=== PATIENT | female | born 1955 | race Two or more races ===

== ENCOUNTER 2024-03-23 08:42 | Outpatient (RCR) | payer MEDICARE, MEDICAID, SELFPAY ==
[2024-03-01 16:15] LABS: Basophils # (Auto) 0.1 Thou/mm3 (0.0-0.2); Basophils % (Auto) 1 % (0-2.5); Eosinophils # (Auto) 0.1 Thou/mm3 (0.0-0.5); Eosinophils % (Auto) 2 % (0-10); Hematocrit 43.2 % (36.0-46.0); Hemoglobin 14.5 g/dL (12.0-16.0); Immature Granulocytes % (Auto) 0 % (0-0); Immature Granulocytes Auto 0.02 Thou/mm3 (0.00-0.00); Lymphocytes # (Auto) 1.3 Thou/mm3 (1.0-4.8); Lymphocytes % (Auto) 24 % (10-50); Mean Corpuscular HGB Conc 33.6 g/dl (31.0-37.0); Mean Corpuscular Hemoglobin 28.4 pg (25.0-35.0); Mean Corpuscular Volume 85 fL (80-100); Monocytes # (Auto) 0.5 Thou/mm3 (0.0-0.8); Monocytes % (Auto) 8 % (0-12); Neutrophils # (Auto) 3.7 Thou/mm3 (1.8-7.7); Neutrophils % (Auto) 65 % (37-80); Nucleated Red Blood Cell % 0 /100 WBC (0); Platelet Count 219 Thou/mm3 (140-440); RDW Standard Deviation 42.7 fL (36.4-46.3); Red Blood Count 5.11 Miln/mm3 (4.00-5.20); White Blood Count 5.7 Thou/mm3 (3.6-11.0)
[2024-03-01 16:39] LABS: Alanine Aminotransferase 20 U/L (10-49); Albumin, Serum 4.6 gm/dL (3.4-4.8); Albumin/Globulin Ratio 2.1 (1.2-2.2); Alkaline Phosphatase 61 U/L (46-116); Anion Gap 6 (7-16); Aspartate Amino Transferase 43 U/L (0-34); BUN/Creatinine Ratio 16 Ratio (12-20); Bilirubin,Total 0.4 mg/dL (0.3-1.2); Blood Urea Nitrogen 16 mg/dL (9-23); Calcium 9.6 mg/dL (8.3-10.6); Calcium (Corrected) 9.6 mg/dL (8.5-10.1); Carbon Dioxide 26.9 mMol/L (20.0-31.0); Chloride 105 mMol/L (98-107); Globulin 2.2 gm/dL (2.3-3.5); Glucose 113 mg/dL (74-106); Osmolality,Calculated 277 (275-295); Potassium 3.7 mMol/L (3.4-5.1); Sodium 138 mMol/L (136-145); Thyroid Stimulating Hormone 2.12 uIU/mL (0.55-4.78); Total Protein 6.8 gm/dL (5.7-8.2); eGFR > 60 See Note
[2024-03-21 16:17] LABS: Basophils % (Auto) 1 % (0-2.5); Eosinophils # (Auto) 0.1 Thou/mm3 (0.0-0.5); Eosinophils % (Auto) 1 % (0-10); Hematocrit 45.5 % (36.0-46.0); Hemoglobin 15.2 g/dL (12.0-16.0); Immature Granulocytes % (Auto) 0 % (0-0); Immature Granulocytes Auto 0.01 Thou/mm3 (0.00-0.00); Lymphocytes # (Auto) 1.2 Thou/mm3 (1.0-4.8); Lymphocytes % (Auto) 18 % (10-50); Mean Corpuscular HGB Conc 33.4 g/dl (31.0-37.0); Mean Corpuscular Hemoglobin 27.9 pg (25.0-35.0); Mean Corpuscular Volume 84 fL (80-100); Monocytes # (Auto) 0.5 Thou/mm3 (0.0-0.8); Monocytes % (Auto) 8 % (0-12); Neutrophils # (Auto) 4.7 Thou/mm3 (1.8-7.7); Neutrophils % (Auto) 73 % (37-80); Nucleated Red Blood Cell % 0 /100 WBC (0); Platelet Count 210 Thou/mm3 (140-440); RDW Standard Deviation 43.8 fL (36.4-46.3); Red Blood Count 5.44 Miln/mm3 (4.00-5.20); White Blood Count 6.5 Thou/mm3 (3.6-11.0)
[2024-03-21 16:37] LABS: Alanine Aminotransferase 38 U/L (10-49); Albumin, Serum 4.4 gm/dL (3.4-4.8); Alkaline Phosphatase 64 U/L (46-116); Anion Gap 9 (7-16); Aspartate Amino Transferase 37 U/L (0-34); BUN/Creatinine Ratio 11 Ratio (12-20); Bilirubin,Total 0.7 mg/dL (0.3-1.2); Blood Urea Nitrogen 11 mg/dL (9-23); Calcium 9.2 mg/dL (8.3-10.6); Calcium (Corrected) 9.2 mg/dL (8.5-10.1); Carbon Dioxide 26.5 mMol/L (20.0-31.0); Chloride 104 mMol/L (98-107); Globulin 2.2 gm/dL (2.3-3.5); Glucose 85 mg/dL (74-106); Osmolality,Calculated 275 (275-295); Potassium 3.7 mMol/L (3.4-5.1); Sodium 139 mMol/L (136-145); Thyroid Stimulating Hormone 3.99 uIU/mL (0.55-4.78); Total Protein 6.6 gm/dL (5.7-8.2); eGFR > 60 See Note
== END 2024-03-26 23:59 | disposition home or self-care (01) ==
LOC: SCTC 08:42
PROVIDERS: PCP Family Medicine; Referring Provider Family Medicine; Visit Provider Internal Medicine Hematology & Oncology
DX: Z51.11 Encounter for antineoplastic chemotherapy (principal); C64.2 Malignant neoplasm of left kidney, except renal pelvis; C50.412 Malignant neoplasm of upper-outer quadrant of left female breast; C78.00 Secondary malignant neoplasm of unspecified lung; Z17.0 Estrogen receptor positive status [ER+]; Z17.21 Progesterone receptor positive status; Z17.32 Human epidermal growth factor receptor 2 negative status; Z79.811 Long term (current) use of aromatase inhibitors
CPT/HCPCS: 36415; 36591; 80053; 84443; 85025; 96367; 96413; 99212; A4216; J1642; J2997; J9271; G0463

== ENCOUNTER 2024-04-13 13:06 | Outpatient (RCR) | payer MEDICARE, MEDICAID, SELFPAY ==
[2024-04-12 16:20] LABS: Basophils % (Auto) 1 % (0-2.5); Eosinophils # (Auto) 0.1 Thou/mm3 (0.0-0.5); Eosinophils % (Auto) 1 % (0-10); Hematocrit 46.7 % (36.0-46.0); Hemoglobin 15.9 g/dL (12.0-16.0); Immature Granulocytes % (Auto) 0 % (0-0); Immature Granulocytes Auto 0.02 Thou/mm3 (0.00-0.00); Lymphocytes # (Auto) 1.2 Thou/mm3 (1.0-4.8); Lymphocytes % (Auto) 22 % (10-50); Mean Corpuscular Hemoglobin 28.2 pg (25.0-35.0); Mean Corpuscular Volume 83 fL (80-100); Monocytes # (Auto) 0.5 Thou/mm3 (0.0-0.8); Monocytes % (Auto) 9 % (0-12); Neutrophils # (Auto) 3.8 Thou/mm3 (1.8-7.7); Neutrophils % (Auto) 68 % (37-80); Nucleated Red Blood Cell % 0 /100 WBC (0); Platelet Count 207 Thou/mm3 (140-440); RDW Standard Deviation 43.3 fL (36.4-46.3); Red Blood Count 5.63 Miln/mm3 (4.00-5.20); White Blood Count 5.5 Thou/mm3 (3.6-11.0)
[2024-04-12 16:46] LABS: Alanine Aminotransferase 55 U/L (10-49); Albumin, Serum 4.5 gm/dL (3.4-4.8); Albumin/Globulin Ratio 2.4 (1.2-2.2); Alkaline Phosphatase 54 U/L (46-116); Anion Gap 10 (7-16); Aspartate Amino Transferase 44 U/L (0-34); BUN/Creatinine Ratio 12 Ratio (12-20); Bilirubin,Total 0.6 mg/dL (0.3-1.2); Blood Urea Nitrogen 12 mg/dL (9-23); Calcium 9.2 mg/dL (8.3-10.6); Calcium (Corrected) 9.2 mg/dL (8.5-10.1); Carbon Dioxide 26.2 mMol/L (20.0-31.0); Chloride 98 mMol/L (98-107); Globulin 1.9 gm/dL (2.3-3.5); Glucose 93 mg/dL (74-106); Osmolality,Calculated 267 (275-295); Potassium 3.5 mMol/L (3.4-5.1); Sodium 134 mMol/L (136-145); Thyroid Stimulating Hormone 4.76 uIU/mL (0.55-4.78); Total Protein 6.4 gm/dL (5.7-8.2); eGFR > 60 See Note
== END 2024-04-26 23:59 | disposition home or self-care (01) ==
LOC: SCTC 13:06
PROVIDERS: PCP Physician Assistant; Referring Provider Physician Assistant; Visit Provider Internal Medicine Hematology & Oncology
DX: Z51.11 Encounter for antineoplastic chemotherapy (principal); C64.2 Malignant neoplasm of left kidney, except renal pelvis; C50.412 Malignant neoplasm of upper-outer quadrant of left female breast; C78.00 Secondary malignant neoplasm of unspecified lung; Z17.0 Estrogen receptor positive status [ER+]; Z17.21 Progesterone receptor positive status; Z17.32 Human epidermal growth factor receptor 2 negative status; Z79.811 Long term (current) use of aromatase inhibitors
CPT/HCPCS: 36591; 80053; 84443; 85025; 96413; A4216; J1642; J9271

== ENCOUNTER 2024-05-25 12:04 | Emergency (ER) | payer MEDICARE, MEDICAID, SELFPAY ==
--- NOTE | 2024-05-25 | XR_ITS ---
Examination: MRI abdomen with intravenous contrast. MRI abdomen without intravenous contrast. Date and time of exam: 1910 hours INDICATIONS: Diagnosis invasive lobular carcinoma left breast in situ, staging, left renal cell carcinoma diagnosis Technique: Multiple axial, sagittal and coronal sections of the abdomen obtained. Transverse images, TR 6020, TE 107. T1 weighted transverse images, TR 582, TE 9.5. T2-weighted sagittal images, TR 4000, TE 105. T2-weighted sagittal images, TR 4000, TE 5. Coronal images, TR 4210, TE 107. Axial and coronal images are obtained post 20 cc intravenous injection, gadolinium. Findings: Stable bilobed posterior right lobe liver lesion compared with July 21, 2019 The postcontrast images are degraded by patient motion Spleen is not enlarged No gallstones No pancreatic mass Absent left kidney No abdominal lymphadenopathy No ascites IMPRESSION: Recommend hepatic sonography follow-up to confirm 22 mm hemangioma right lobe of the liver
[2024-05-25 12:40] VITALS: BP 164/108; PULSE 78; RESP 20; TEMP 36.5; O2SAT 96
--- NOTE | 2024-05-25 12:46 | PD.EDADULT ---
ED General RME/HPI General Chief complaint: General Adult/Misc Complain Stated complaint: elevated liver enzymes, sent by Oncologist Time Seen by Provider: 05/25/24 12:36 Arrival date/time: 05/25/24 12:04 RME / HPI RME / HPI narrative: 69-year-old female patient with significant history of hypertension, renal cancer with mets to the lung, currently on chemotherapy, who was sent to us by Dr. Frazier, oncologist, for elevated LFTs. Patient was sent to us also for stat MRI of the liver. Currently patient is not having any complaints. Related Data Home Medications ?Medication ?Instructions ?Recorded ?Confirmed calcium 600 mg (as carbonate)-vit 2 tab PO DAILY 05/16/19 02/10/24 D3 20 mcg (800 unit) chewable tablet (Caltrate plus D) ibandronate 150 mg tablet 150 mg PO QMONTH 05/16/19 02/10/24 lisinopril 20 mg tablet 20 mg PO QDAY 05/16/19 02/10/24 lovastatin 20 mg tablet 20 mg PO QPM 05/16/19 02/10/24 exemestane 25 mg tablet 25 mg PO DAILY 02/04/24 02/10/24 vitamin B complex-vitamin C-folic 1 tab PO QDAY 02/04/24 02/10/24 acid 0.8 mg tablet (Myra-Maurice) Allergies Allergy/AdvReac Type Severity Reaction Status Date / Time No Known Allergies Allergy Verified 07/04/20 12:59 Review of Systems Review of Systems Narrative Review of Systems: Review of system reviewed and within normal limits except mentioned in HPI ED Exam Narrative Physical exam: VITAL SIGNS: Reviewed. GENERAL APPEARANCE: Alert and interactive, follows commands, no acute distress, HEAD AND FACE: Non-traumatic. ENT: PERRL, pink conjunctivitis, eyelid no trauma, Mucous membrane moist. NECK: Supple, nontender, no nuchal rigidity. CHEST: No tenderness, no crepitus, no paradoxical movement, no retractions. LUNGS: Clear, well ventilated, symmetric, no rales, no wheezing, no ronchi, no stridor, good breath sounds bilaterally. HEART: Regular rate, regular rhythm, no murmur, no gallops. ABDOMEN: Soft, positive bowel sounds, nondistended, no guarding, nontender, no rebound, no masses, RECTAL: Deferred. GENITAL: Deferred. NEUROLOGICAL: Gross motor function intact sensory function intact, Appropriate for age. MUSCULOSKELETAL: low back nontender, full range of motion. EXTREMITIES: Nontender, full range of motion. SKIN: Color pink, dry, no rash, no lacerations, no abrasions, no contusions. LYMPHATICS: Deferred. Course Quality Measures none Orders Category Date Time Status MRI Screening NOW Care 05/25/24 12:44 Active MRI Screening NOW Care 05/25/24 12:45 Active MR abdomen wo/w con Stat Exams 05/25/24 Completed Vital Signs Vital signs: Vital Signs Temperature 97.7 F 05/25/24 12:40 Pulse Rate 78 05/25/24 12:40 Respiratory Rate 20 05/25/24 12:40 Blood Pressure 164/108 H 05/25/24 12:40 Pulse Oximetry (%) 96 05/25/24 12:40 Oxygen Delivery Method Room Air 05/25/24 12:40 MDM Patient data External records reviewed:: None Clinical information provided by:: none Social determinants that could affect healthcare access:: none Patient has the following chronic illnesses:: None How is presenting disease/condition affected by chronic disease/condition?: no chronic disease Evaluation data The following diagnostics were reviewed and interpreted by me:: radiology exam(s) Lab and/or radiology exams considered but not ordered:: None Interpretation Summary: MRI of the abdomen came back with possible liver hemangioma otherwise unremarkable. Medications Medications considered but not ordered:: None Medication administrations:: None Consultations Consultation(s) initiated? (list below): No Diagnosis Differential Diagnosis ED Complaint MDM: Abdominal pain, elevated LFTs, liver hemangioma Most likely diagnosis given after review of the tests above:: Elevated LFTs Admission Indicated Admission indicated?: not indicated Explain why admission is indicated or not indicated:: Stable Admission Request Was there a request for admission?: No Disposition Plan Disposition Plan: Discharge Discharge Attestation Discharge Attestation: The patient and all family members were given an opportunity to ask questions and understood the discharge instructions. Discharge instructions specifically effects, indications for sooner follow up or return to the emergency department, and the expected course of current diagnosis. Patient condition: Stable Medical Decision Making MDM Narrative MDM Narrative: 69-year-old female patient with significant history of hypertension, renal cancer with mets to the lung, currently on chemotherapy, who was sent to us by Dr. Blinder, oncologist, for elevated LFTs. Patient was sent to us also for stat MRI of the liver. Currently patient is not having any complaints. Patient appears nontoxic and hemodynamically stable. Patient discharged home and instructed to follow-up with primary care provider in 24 to 48 hours. Instructed to return to the emergency department immediately if worsening of symptoms Differential Diagnosis Differential Diagnosis: Abdominal pain, elevated LFTs, liver hemangioma Discharge Plan Plan Patient Disposition: HOME (Self Care) Disposition Comment: Stable Prescriptions/Referrals Prescriptions/Med Rec: No Action lisinopril 20 mg Tablet 20 mg PO QDAY lovastatin 20 mg Tablet 20 mg PO QPM ibandronate 150 mg Tablet 150 mg PO QMONTH Caltrate 600 plus D 600 mg (1,500 mg)-800 unit Tablet,Chewable 2 tab PO DAILY exemestane 25 mg Tablet 25 mg PO DAILY Myra-Maurice 0.8 mg Tablet 1 tab PO QDAY Referrals: Mateus Reis PA-C [Primary Care Provider] - In 1 week Problem List Clinical Impression: Elevated LFTs Patient/Caregiver Discharge Instructions Discharge Activity: activity as tolerated Education Materials: Tests for Liver Disease Additional Instructions: Thank you for the opportunity for serving you today. You are stable for discharged . You are advised to: Follow-up with your oncologist in 1 to 2 days Return to ED for worsening of symptoms Increase oral fluids Print Language: Kazakh Stand Alone Forms: Nandini Award Info., Patient Portal Info Letter PA/ODILON Supervising Physician TREY/ODILON Supervising Physician: MD Og
[2024-05-25 19:56] VITALS: BMI 28.5
[2024-05-25 20:01] VITALS: BP 173/99; PULSE 71; RESP 18; TEMP 36.5; O2SAT 100
[2024-05-25 21:47] VITALS: BP 173/99; PULSE 68; RESP 18; TEMP 36.5; O2SAT 98
== END 2024-05-25 21:47 | disposition home or self-care (01) ==
PROVIDERS: Emergency Provider Emergency Medicine; PCP Physician Assistant
DX: R74.8 Abnormal levels of other serum enzymes (principal)
CPT/HCPCS: 74183; 99285; A9579

== ENCOUNTER 2024-05-27 07:53 | Outpatient (RCR) | payer MEDICARE, MEDICAID, SELFPAY ==
[2024-05-03 15:09] LABS: Basophils # (Auto) 0.1 Thou/mm3 (0.0-0.2); Basophils % (Auto) 1 % (0-2.5); Eosinophils # (Auto) 0.1 Thou/mm3 (0.0-0.5); Eosinophils % (Auto) 1 % (0-10); Hematocrit 48.3 % (36.0-46.0); Hemoglobin 16.2 g/dL (12.0-16.0); Immature Granulocytes % (Auto) 0 % (0-0); Immature Granulocytes Auto 0.01 Thou/mm3 (0.00-0.00); Lymphocytes # (Auto) 1.1 Thou/mm3 (1.0-4.8); Lymphocytes % (Auto) 21 % (10-50); Mean Corpuscular HGB Conc 33.5 g/dl (31.0-37.0); Mean Corpuscular Hemoglobin 27.6 pg (25.0-35.0); Mean Corpuscular Volume 82 fL (80-100); Monocytes # (Auto) 0.5 Thou/mm3 (0.0-0.8); Monocytes % (Auto) 9 % (0-12); Neutrophils # (Auto) 3.7 Thou/mm3 (1.8-7.7); Neutrophils % (Auto) 68 % (37-80); Nucleated Red Blood Cell % 0 /100 WBC (0); Platelet Count 201 Thou/mm3 (140-440); RDW Standard Deviation 43.7 fL (36.4-46.3); Red Blood Count 5.87 Miln/mm3 (4.00-5.20); White Blood Count 5.5 Thou/mm3 (3.6-11.0)
[2024-05-03 15:27] LABS: Alanine Aminotransferase 41 U/L (10-49); Albumin, Serum 4.3 gm/dL (3.4-4.8); Alkaline Phosphatase 50 U/L (46-116); Anion Gap 8 (7-16); Aspartate Amino Transferase 44 U/L (0-34); BUN/Creatinine Ratio 11 Ratio (12-20); Bilirubin,Total 0.7 mg/dL (0.3-1.2); Blood Urea Nitrogen 11 mg/dL (9-23); Calcium 9.3 mg/dL (8.3-10.6); Calcium (Corrected) 9.3 mg/dL (8.5-10.1); Carbon Dioxide 25.7 mMol/L (20.0-31.0); Chloride 101 mMol/L (98-107); Globulin 2.1 gm/dL (2.3-3.5); Glucose 97 mg/dL (74-106); Osmolality,Calculated 269 (275-295); Potassium 3.7 mMol/L (3.4-5.1); Sodium 135 mMol/L (136-145); Thyroid Stimulating Hormone 4.85 uIU/mL (0.55-4.78); Total Protein 6.4 gm/dL (5.7-8.2); eGFR > 60 See Note
--- NOTE | 2024-05-23 14:12 | CTCFLWUP_ITS ---
Patient: LENARD WINTERS : 1955 Page 2 of 3 FOLLOW UP NOTE DATE OF SERVICE: 05/23/2024 NAME: LENARD WINTERS ACCOUNT: [id number] : 1955 AGE: 69 INTERVAL HISTORY: Patient is on treatment for her renal cancer. 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 pT2, PN X. 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 Status post modified radical mastectomy (). S/p 4 cycles of TC chemotherapy. Currently on exemestane in the adjuvant setting # ONCOLOGY HISTORY: DIAGNOSIS: Malignant neoplasm of upper-outer quadrant of left female breast [ICD10] C50.412; Malignant neoplasm of left kidney, except renal pelvis [ICD10] C64.2 DATE OF DIAGNOSIS: 02/04/2024 STAGE/TNM: M1 metastatic clear-cell renal cell cancer on axitinib and Keytruda Also history of stage III ER/NH positive HER2 negative invasive lobular left breast cancer s/p mastec tammie chemotherapy and on exemestane TREATMENT HISTORY: Care?Plan Start?Date Cycle Day Intent DOCEtaxel?75,?Cyclophosphamide?600?-?Adj 07/28/2019 1 21 Curative?(adjuvant) Axitinib?and?Pembrolizumab 03/02/2024 1 21 Palliative HISTORY OF PRESENT ILLNESS: Lenard Winters is a 69-year-old woman who have a history of breast cancer and renal cancer. Patient was initially diagnosed with the breast cancer as below ? 12/13/2018: Patient had bilateral screening mammograms which caused the suspicion for left-sided breas t cancer. 03/31/2019: Patient saw radiation oncologist Dr. Aaron Reyes here at the cancer center. 04/07/2019: Patient saw Dr. Camden Ely who is planning on doing surgery near future. 05/18/2019: Patient had a left breast lumpectomy and sentinel lymph node biopsy. 05/26/2019: MRI of the breast. Left breast showed findings consistent with postsurgical seroma in the left breast as well as in left axilla. Right breast MRI was reportedly negative. 06/10/2019: DEXA scan?There is osteopenia based on lumbar spine measurements. There is osteopenia based on hip measurements Lumbar mineralization is increased 4.9% compared with F [id number]. Hip mineralization is increased 3.2% compared with June 13, 2014 06/20/2019: Left breast modified radical mastectomy? 07/08/2019: PET CT scan?Postsurgical changes left breast No mediastinal, axillary adenopathy. No pulmonary nodules 7 cm left renal mass worrisome for renal cell carcinoma. Recommend MRI abdomen/ kidneys follow-up, pre and postcontrast. Non hypermetabolic 9 mm focal sclerosis left sacral wing Co nsider whole-body bone scan follow-up 07/28/2019? 09/29/2019: Patient had 4 cycles of TC chemotherapy in the adjuvant setting. 11/15/2019: Left nephrectomy. 12/07/2019?03/20/2020: Patient took anastrozole 1 mg p.o. daily in the adjuvant setting. Anastrozole discontinued due to body aches. 12/14/2019?02/08/2020: Patient received 5040 cGy radiation therapy to the left chest wall. 02/27/2020: CT scan of the abdomen and pelvis with and without contrast? 03/20/2020: Anastrozole discontinued due to body aches. Patient was started on Aromasin 25 mg p.o. d aily. 06/08/2020: Esophagogastroduodenoscopy with biopsy? 07/04/2020: Patient had colonoscopy done by Dr. Gore. 08/27/2020: CT scan of the abdomen/pelvis with and without contrast? 03/13/2021: Right breast mammogram: BI-RADS Category 1: Negative findings. 03/07/2022: Bone density test? At the last visit patient was noted to have lung nodules which were biopsied. 02/04/[address]-guided needle biopsy shows metastatic clear-cell renal cell cancer. OTHER MEDICAL HISTORY/CONDITIONS: FAMILY HISTORY: SOCIAL HISTORY: [employer]OUN[employer] HISTORY: MEDICATIONS: 1. Caltrate 600 - 600 mg Twice a Day 2. exemestane - 25 mg 1 tab Daily 3. ibandronate - 150 mg Monthly 4. Inlyta - 1 mg 1 tab Twice a Day 5. lisinopril - 20 mg 1 tab Daily 6. losartan - 50 mg 1 tab Daily 7. losartan-hydrochlorothiazide - 50-12.5 mg 1 tab Daily 8. lovastatin - 20 mg As directed 9. Renal-Maurice - 0.8 mg 1 tab Daily 10. Sancuso - 3.1 mg/24 hour 1 Patch Weekly Medications Last Reconciled by Nancy Canada MA on 05/23/2024 ALLERGIES: No Known Drug Allergies REVIEW OF SYSTEMS: A complete 14-point review of systems was performed and is negative except as noted in interval histo ry. PHYSICAL EXAMINATION: VITAL SIGNS: PAIN: 0 - No pain ECOG Performance Status: 1 - Symptomatic; ambulatory; restricted in strenuous activity Conjunctive is white neck is supple. No adenopathy in the neck axilla or in the inguinal region. Chest clear to auscultation. No wheezes or rails audible. CVS rhythm regular. Abdomen is soft. Extremities no clubbing or cyanosis noted. LABORATORY DATA: I have personally reviewed and interpreted each of the patient?s relevant lab tests, abnormal finding s are below: Date 05/03/24 ??WHITE?BLOOD?COUNT?(Thou/mm3) 5.5 ??RED?BLOOD?COUNT?(Miln/mm3) 5.87?H ??HEMOGLOBIN?(gm/dl) 16.2?H ??HEMATOCRIT?(%) 48.3?H ??PLATELET?COUNT?(Thou/mm3) 201 ??NEUTROPHILS?%,?AUTO?(%) 68 ??LYMPH?%,?AUTO?(%) 21 ??NEUTROPHILS,?AUTO?(Thou/mm3) 3.7 ASSESSMENT/PLAN: #1 metastatic renal cancer Diagnosed on biopsy from the lung Patient getting treatment through a port catheter Patient has been on Keytruda and axitinib Rapidly growing tumor Will get scan to see response to treatment NGS panel showed 8 mutation burden and microsatellite stable. VHL mutation and therapies with clinic al relevance is belzutifan and category 2A recommendation I will follow-up on the CT scan and brain M RI to see response to treatment MRI Brain MRI with and without contrast CT scan with and without contrast CBC CMP TSH T4 Started on levothyroxine 50 mcg RETURN TO CLINIC: 6 weeks I will see her back in the clinic in 6 weeks. BILLING AND COMPLIANCE: I reviewed external records from providers outside my specialty as summarized above. I spent a total of 50 minutes on this patient?s care on the day of their visit excluding time spent related to any bi lled procedures. This time includes time spent with the patient as well as time spent documenting in the medical record, reviewing patients records and tests, obtaining history, placing orders, communi cating with other healthcare professionals, counseling the patient, family or caregiver, and/or care coordination for the diagnoses above. Electronically Signed by: Baudilio Macias MD T: 2:10 PM CC: PCP: Mateus Reis Referring: Mateus Reis This document was completed utilizing speech recognition software. Grammatical errors, random word in sertions, pronoun errors, and incomplete sentences are an occasional consequence of this system due t o software limitations, ambient noise, and hardware issues. Any formal questions or concerns about th e content, text or information contained within the body of this dictation should be directly address ed to the provider for clarification.
[2024-05-24 15:44] LABS: Basophils % (Auto) 1 % (0-2.5); Eosinophils % (Auto) 1 % (0-10); Hematocrit 48.2 % (36.0-46.0); Hemoglobin 16.2 g/dL (12.0-16.0); Immature Granulocytes % (Auto) 0 % (0-0); Immature Granulocytes Auto 0.01 Thou/mm3 (0.00-0.00); Lymphocytes # (Auto) 0.9 Thou/mm3 (1.0-4.8); Lymphocytes % (Auto) 22 % (10-50); Mean Corpuscular HGB Conc 33.6 g/dl (31.0-37.0); Mean Corpuscular Hemoglobin 27.8 pg (25.0-35.0); Mean Corpuscular Volume 83 fL (80-100); Monocytes # (Auto) 0.5 Thou/mm3 (0.0-0.8); Monocytes % (Auto) 12 % (0-12); Neutrophils # (Auto) 2.6 Thou/mm3 (1.8-7.7); Neutrophils % (Auto) 65 % (37-80); Nucleated Red Blood Cell % 0 /100 WBC (0); Platelet Count 175 Thou/mm3 (140-440); RDW Standard Deviation 44.8 fL (36.4-46.3); Red Blood Count 5.82 Miln/mm3 (4.00-5.20); White Blood Count 3.9 Thou/mm3 (3.6-11.0)
[2024-05-24 16:08] LABS: Alanine Aminotransferase 544 U/L (10-49); Albumin, Serum 4.6 gm/dL (3.4-4.8); Albumin/Globulin Ratio 2.3 (1.2-2.2); Alkaline Phosphatase 51 U/L (46-116); Anion Gap 10 (7-16); Aspartate Amino Transferase 329 U/L (0-34); BUN/Creatinine Ratio 11 Ratio (12-20); Bilirubin,Total 1.1 mg/dL (0.3-1.2); Blood Urea Nitrogen 12 mg/dL (9-23); Calcium 9.5 mg/dL (8.3-10.6); Calcium (Corrected) 9.5 mg/dL (8.5-10.1); Chloride 97 mMol/L (98-107); Creatinine (Component) 1.1 mg/dL (0.6-1.3); Free T4 (Free Thyroxine) 1.52 ng/dL (0.89-1.76); Glucose 90 mg/dL (74-106); Osmolality,Calculated 267 (275-295); Potassium 3.5 mMol/L (3.4-5.1); Sodium 134 mMol/L (136-145); Thyroid Stimulating Hormone 8.74 uIU/mL (0.55-4.78); Total Protein 6.6 gm/dL (5.7-8.2); eGFR 54 See Note
[2024-05-25 08:58] LABS: Basophils % (Auto) 1 % (0-2.5); Eosinophils # (Auto) 0.1 Thou/mm3 (0.0-0.5); Eosinophils % (Auto) 1 % (0-10); Hematocrit 49.2 % (36.0-46.0); Hemoglobin 16.6 g/dL (12.0-16.0); Immature Granulocytes % (Auto) 1 % (0-0); Immature Granulocytes Auto 0.02 Thou/mm3 (0.00-0.00); Lymphocytes % (Auto) 25 % (10-50); Mean Corpuscular HGB Conc 33.7 g/dl (31.0-37.0); Mean Corpuscular Hemoglobin 27.8 pg (25.0-35.0); Mean Corpuscular Volume 82 fL (80-100); Monocytes # (Auto) 0.6 Thou/mm3 (0.0-0.8); Monocytes % (Auto) 14 % (0-12); Neutrophils # (Auto) 2.4 Thou/mm3 (1.8-7.7); Neutrophils % (Auto) 58 % (37-80); Nucleated Red Blood Cell % 0 /100 WBC (0); Platelet Count 158 Thou/mm3 (140-440); RDW Standard Deviation 44.7 fL (36.4-46.3); Red Blood Count 5.98 Miln/mm3 (4.00-5.20); White Blood Count 4.1 Thou/mm3 (3.6-11.0)
[2024-05-25 09:16] LABS: Alanine Aminotransferase 598 U/L (10-49); Albumin, Serum 4.5 gm/dL (3.4-4.8); Albumin/Globulin Ratio 2.3 (1.2-2.2); Alkaline Phosphatase 51 U/L (46-116); Anion Gap 9 (7-16); Aspartate Amino Transferase 350 U/L (0-34); BUN/Creatinine Ratio 11 Ratio (12-20); Bilirubin,Total 1.2 mg/dL (0.3-1.2); Blood Urea Nitrogen 11 mg/dL (9-23); Calcium 9.9 mg/dL (8.3-10.6); Calcium (Corrected) 9.9 mg/dL (8.5-10.1); Carbon Dioxide 25.9 mMol/L (20.0-31.0); Chloride 102 mMol/L (98-107); Glucose 86 mg/dL (74-106); Osmolality,Calculated 272 (275-295); Potassium 3.6 mMol/L (3.4-5.1); Sodium 137 mMol/L (136-145); Thyroid Stimulating Hormone 14.41 uIU/mL (0.55-4.78); Total Protein 6.5 gm/dL (5.7-8.2); eGFR > 60 See Note
[2024-05-26 12:00] LABS: Alanine Aminotransferase 537 U/L (10-49); Albumin, Serum 4.3 gm/dL (3.4-4.8); Alkaline Phosphatase 48 U/L (46-116); Anion Gap 11 (7-16); Aspartate Amino Transferase 272 U/L (0-34); BUN/Creatinine Ratio 13 Ratio (12-20); Bilirubin,Total 1.2 mg/dL (0.3-1.2); Blood Urea Nitrogen 12 mg/dL (9-23); Calcium 9.3 mg/dL (8.3-10.6); Calcium (Corrected) 9.3 mg/dL (8.5-10.1); Carbon Dioxide 25.3 mMol/L (20.0-31.0); Chloride 102 mMol/L (98-107); Creatinine (Component) 0.9 mg/dL (0.6-1.3); Globulin 2.2 gm/dL (2.3-3.5); Glucose 86 mg/dL (74-106); Osmolality,Calculated 274 (275-295); Potassium 3.6 mMol/L (3.4-5.1); Sodium 138 mMol/L (136-145); Total Protein 6.5 gm/dL (5.7-8.2); eGFR > 60 See Note
[2024-05-27 09:02] LABS: Alanine Aminotransferase 433 U/L (10-49); Albumin, Serum 4.1 gm/dL (3.4-4.8); Alkaline Phosphatase 48 U/L (46-116); Anion Gap 10 (7-16); Aspartate Amino Transferase 195 U/L (0-34); BUN/Creatinine Ratio 11 Ratio (12-20); Bilirubin,Total 1.3 mg/dL (0.3-1.2); Blood Urea Nitrogen 11 mg/dL (9-23); Calcium 9.1 mg/dL (8.3-10.6); Calcium (Corrected) 9.1 mg/dL (8.5-10.1); Carbon Dioxide 25.4 mMol/L (20.0-31.0); Chloride 102 mMol/L (98-107); Globulin 2.1 gm/dL (2.3-3.5); Glucose 101 mg/dL (74-106); Osmolality,Calculated 273 (275-295); Potassium 3.4 mMol/L (3.4-5.1); Sodium 137 mMol/L (136-145); Total Protein 6.2 gm/dL (5.7-8.2); eGFR > 60 See Note
[2024-05-30 06:36] LABS: T3,Total* 129 ng/dL (76-181)
[2024-05-31 08:57] LABS: Alanine Aminotransferase 345 U/L (10-49); Albumin/Globulin Ratio 1.9 (1.2-2.2); Alkaline Phosphatase 42 U/L (46-116); Anion Gap 9 (7-16); Aspartate Amino Transferase 193 U/L (0-34); BUN/Creatinine Ratio 14 Ratio (12-20); Bilirubin,Total 1.1 mg/dL (0.3-1.2); Blood Urea Nitrogen 11 mg/dL (9-23); Calcium 8.8 mg/dL (8.3-10.6); Calcium (Corrected) 8.8 mg/dL (8.5-10.1); Carbon Dioxide 25.5 mMol/L (20.0-31.0); Chloride 106 mMol/L (98-107); Creatinine (Component) 0.8 mg/dL (0.6-1.3); Globulin 2.1 gm/dL (2.3-3.5); Glucose 94 mg/dL (74-106); Osmolality,Calculated 278 (275-295); Potassium 3.5 mMol/L (3.4-5.1); Sodium 140 mMol/L (136-145); Total Protein 6.1 gm/dL (5.7-8.2); eGFR > 60 See Note
[2024-05-31 10:19] LABS: T4 (Thyroxine) 12.9 mcg/dL (4.5-10.9)
[2024-06-02 12:10] LABS: Alanine Aminotransferase 256 U/L (10-49); Albumin, Serum 4.2 gm/dL (3.4-4.8); Albumin/Globulin Ratio 1.8 (1.2-2.2); Alkaline Phosphatase 46 U/L (46-116); Anion Gap 9 (7-16); Aspartate Amino Transferase 105 U/L (0-34); BUN/Creatinine Ratio 15 Ratio (12-20); Bilirubin,Total 0.9 mg/dL (0.3-1.2); Blood Urea Nitrogen 15 mg/dL (9-23); Calcium 9.4 mg/dL (8.3-10.6); Calcium (Corrected) 9.4 mg/dL (8.5-10.1); Carbon Dioxide 27.7 mMol/L (20.0-31.0); Chloride 106 mMol/L (98-107); Globulin 2.3 gm/dL (2.3-3.5); Glucose 93 mg/dL (74-106); Osmolality,Calculated 285 (275-295); Potassium 3.3 mMol/L (3.4-5.1); Sodium 143 mMol/L (136-145); Total Protein 6.5 gm/dL (5.7-8.2); eGFR > 60 See Note
[2024-06-03 06:43] LABS: ACTH, Plasma* 40 pg/mL (6-50)
== END 2024-05-27 23:59 | disposition home or self-care (01) ==
LOC: SCTC 07:53
PROVIDERS: PCP Physician Assistant; Referring Provider Physician Assistant; Visit Provider Internal Medicine Hematology & Oncology
DX: Z51.11 Encounter for antineoplastic chemotherapy (principal); C64.2 Malignant neoplasm of left kidney, except renal pelvis; C50.412 Malignant neoplasm of upper-outer quadrant of left female breast; C78.00 Secondary malignant neoplasm of unspecified lung; Z17.0 Estrogen receptor positive status [ER+]; Z17.21 Progesterone receptor positive status; Z17.32 Human epidermal growth factor receptor 2 negative status; Z90.12 Acquired absence of left breast and nipple; Z79.811 Long term (current) use of aromatase inhibitors; Z90.5 Acquired absence of kidney
CPT/HCPCS: 36591; 80053; 84439; 84443; 84480; 85025; 96360; 96413; 99213; A4216; J1642; J7030; J7040; J9271; G0463

== ENCOUNTER → 2024-06-06 | Outpatient (CLI) | payer MEDICARE, MEDICAID, SELFPAY ==
--- NOTE | 2024-06-06 14:00 | XR_ITS ---
Examination: CT chest with intravenous contrast CT abdomen with intravenous contrast CT pelvis with intravenous contrast CT chest without intravenous contrast CT abdomen without intravenous contrast CT pelvis without intravenous contrast 2-D coronal and sagittal reconstructions Time of exam: June 06, 2024 1443 hours Comparison 01/25/2024 INDICATIONS: Diagnosis malignant neoplasm upper outer quadrant left female breast, undergoing chemotherapy post mastectomy post nephrectomy restaging CTDI: vol (mGy) : 17.5 DLP: (mGycm): 1066 Technique: Multiple axial images of the chest, abdomen and pelvis with intravenous contrast, 3.0 mm slice thickness. Images obtained pre and post intravenous injection Isovue 40 cc Isovue-300 2-D sagittal and coronal reconstructions. Low dose protocols were performed. One or more of the following dose reduction techniques were used; automated exposure control, adjustment of the mA and/or KV according to patient size, use of iterative reconstruction technique. Findings: Left high periaortic mediastinal mass 4.5 x 2.7 cm compared to 8.5 x 4.7 cm on 01/25/2024 Right tracheobronchial lymph node mass 19 mm compared to 36 mm compared with 01/25/2024 Left upper lobe pulmonary mass 16 mm compared to 32 mm compared with 01/25/2024 Additional pulmonary nodules are no longer identified No visualized liver or splenic lesions No gallstones No pancreatic mass Absent left kidney No right hydronephrosis No interval abdominal or pelvic lymphadenopathy Normal appendix No bowel obstruction Enlarged uterus with 2 masses contiguous with or within the uterus 7.1 cm, 4.2 cm Urinary bladder intact IMPRESSION: Treatment response with decrease in extent of mediastinal lymphadenopathy and decrease in size of pulmonary mass left upper lobe as above Large apparent uterine masses, recommend transvaginal transabdominal pelvic sonography follow-up
== END | disposition home or self-care (01) ==
PROVIDERS: Referring Provider Internal Medicine Hematology & Oncology; Visit Provider Internal Medicine Hematology & Oncology
DX: R59.0 Localized enlarged lymph nodes (principal); R91.8 Other nonspecific abnormal finding of lung field; R19.09 Other intra-abdominal and pelvic swelling, mass and lump; C78.02 Secondary malignant neoplasm of left lung; C64.2 Malignant neoplasm of left kidney, except renal pelvis
CPT/HCPCS: 71270; 74178; 80053; 84443; 85025; A4649; Q9967

== ENCOUNTER → 2024-06-09 | Outpatient (CLI) | payer MEDICARE, MEDICAID, SELFPAY ==
--- NOTE | 2024-06-09 | XR_ITS ---
EXAMINATION: PET/CT FUSION SKULL TO THIGH EXAM DATE AND TIME: June 09, 2024 1342 hours INDICATIONS: Diagnosis breast cancer restaging post treatment, CT chest June 06, 2024 high left periaortic mediastinal mass 4.5 x 2.7 cm right tracheobronchial lymph node mass 19 mm, left upper lobe pulmonary mass 16 mm, restaging CTDI:vol (mGy) 4.66 DLP: (mGycm) 368.15 PROCEDURE: 15.09 mCi FDG was administered intravenously To allow for distribution and uptake of radiotracer, the patient was allowed to rest quietly in a shielded room. Imaging was performed on an integrated 16-slice PET/CT scanner, with scanning from the skull base to the mid thigh. Serum blood glucose at the time of the injection was measured 133 mg/dL. CT scanning was performed without oral or intravenous contrast material. FINDINGS: Head and Neck: There is no jonathan hypermetabolism in the neck. The visualized portions of the brain are normal in appearance on CT. Chest: 17 mm hypermetabolic pulmonary nodule left apex image 46 Non hypermetabolic 21 mm pulmonary nodule left upper lobe image 53 Weakly hypermetabolic left upper lobe pulmonary mass contiguous with the aortic arch, 4.5 x 2.7 cm Bilateral weakly hypermetabolic hilar regions Abdomen and Pelvis: There is no jonathan hypermetabolism in retroperitoneal or pelvic chains. The spleen is normal in size and FDG avidity. 3 cm umbilical hernia defect containing bowel but no incarcerated bowel Musculoskeletal: Marrow uptake is within normal range. IMPRESSION: Hypermetabolic 17 mm pulmonary nodule left apex Non hypermetabolic 21 mm pulmonary nodule left upper lobe High left mediastinal hypermetabolic pulmonary mass 4.5 x 2.7 cm
== END | disposition home or self-care (01) ==
LOC: CDIM 12:05
PROVIDERS: Referring Provider Internal Medicine Hematology & Oncology; Visit Provider Internal Medicine Hematology & Oncology
DX: R91.8 Other nonspecific abnormal finding of lung field (principal); C64.2 Malignant neoplasm of left kidney, except renal pelvis; C78.02 Secondary malignant neoplasm of left lung; C50.412 Malignant neoplasm of upper-outer quadrant of left female breast
CPT/HCPCS: 78815; A9552

== ENCOUNTER 2024-06-15 12:30 | Inpatient (IN) | payer MEDICARE, MEDICAID, SELFPAY ==
[2024-06-15 13:08] VITALS: BP 131/82; PULSE 75; RESP 16; TEMP 36.9; O2SAT 98; BMI 29.0
--- NOTE | 2024-06-15 14:30 | PD.EDRECHK ---
ED Recheck Abnl Lab Rx-RME/HPI General Chief Complaint: Recheck/Abnormal Lab/Rx Stated Complaint: CTC SENT OVER FOR LIVER FAILURE; HX RENAL CNX Time Seen by Provider: 06/15/24 12:54 Arrival date/time: 06/15/24 12:30 RME / HPI RME / HPI narrative: DR. DURAND MAIN ED EVALUATION: 69 year old female with past medical history significant for renal cancer presents to the Emergency Department with complaint of abnormal labs, liver enzymes are elevated. Case was discussed with her oncologist, Dr. Macias who notew her liver enzymes have increased since starting immunotherapy 4 weeks ago where she was then started on an oral prednisone taper. Thursday was her last dose of prednisone (10 mg). Otherwise patient is asymptomatic. Today, they were doing a routine check and liver enzymes were elevated again and was sent for admission for IV steroids. Patient was started on Solu-Medrol 125 mg in the office and referred to the emergency department with recommendations of admission for IV Solu-Medrol and trending her transaminases. Related Data Home Medications ?Medication ?Instructions ?Recorded ?Confirmed calcium 600 mg (as carbonate)-vit 2 tab PO DAILY 05/16/19 02/10/24 D3 20 mcg (800 unit) chewable tablet (Caltrate plus D) ibandronate 150 mg tablet 150 mg PO QMONTH 05/16/19 02/10/24 lisinopril 20 mg tablet 20 mg PO QDAY 05/16/19 06/15/24 lovastatin 20 mg tablet 20 mg PO QPM 05/16/19 06/15/24 exemestane 25 mg tablet 25 mg PO DAILY 02/04/24 02/10/24 vitamin B complex-vitamin C-folic 1 tab PO QDAY 02/04/24 06/15/24 acid 0.8 mg tablet (Myra-Maurice) Allergies Allergy/AdvReac Type Severity Reaction Status Date / Time No Known Allergies Allergy Verified 06/15/24 12:32 Review of Systems Review of Systems Systems Reviewed: All systems reviewed, normal except as documented Narrative Review of Systems: GEN: No fever, no chills, no weight loss EYES: No discharge, no visual changes, no pain HEENT: No ear pain, no congestion, no sore throat PULM: No shortness of breath, no cough, no congestion CV: No chest pain, no dyspnea on exertion, no palpitations GI: No nausea, no vomiting, no diarrhea, no pain, no constipation : No frequency, no urgency and no dysuria MUSC/SKEL: No joint pain, no back pain SKIN: No rash PSYCH: No hallucinations, no depression HEME/LYMPH: No easy bleeding or bruising tendencies NEURO: No weakness, no headache Past Medical History Past Medical History NEUROLOGIC: Positive Migraine CARDIAC: Positive Cardiac Disorders, Hypercholesterolemia and Hypertension GASTROINTESTINAL: Negative Gastrointestinal Disorders or Hepatitis GENITOURINARY: Positive Genitourinary Disorders, Renal Disease (left nephrectomy) and Kidney Stones REPRODUCTIVE: Positive Breast Cancer (LEFT BREAST CA) and Previous Pregnancies (x5) MUSCULOSKELETAL: Positive Musculoskeletal Disorders, Arthritis and Osteoporosis ENT: Positive Cataracts ENDOCRINE: Negative Endocrine Disorders, Diabetes Mellitus Type 1, Diabetes Mellitus Type 2 or Hyperthyroidism HEMATOLOGIC: Positive Blood Disorders and Anemia (in past) OTHER HISTORY: Positive Blood Transfusions, Chemotherapy, Radiation Therapy, Cancer (LEFT KIDNEY), Breast Cancer (LEFT BREAST CA) and Lung Cancer (? pending lung biopsy results); Negative Hospitalization, Autoimmune Disease, Shingles, Falls, Blood Transfusion Reaction, Anesthesia Reactions, MRSA, Chicken Pox, Measles or Mumps Family History FAMILY HISTORY: Positive Family Cardiac Disorders; Negative Family Psychiatric Problems, Family Respiratory Disorders, Family Gastrointestinal Problems, Family Cancer or Family Anesthesia Reaction Surgical History SURGICAL: Positive Nephrectomy (LEFT), Mastectomy (LEFT W/LYMPH NODES) and Lumpectomy; Negative Cardiac Surgery, Pacemaker, Endocrine Surgery, Abdominal Surgery or Joint Replacement Social History SMOKING STATUS: Never smoker SUBSTANCE USE: does not use ALCOHOL: Never ED Exam Narrative Physical exam: GENERAL APPEARANCE: AxOx4, generally well-appearing, no acute distress. HEENT: NC, AT. MMM. EOMI, clear conjunctiva, sclera anicteric, oropharynx clear. NECK: Supple without lymphadenopathy. No stiffness or restricted ROM. HEART: Normal rate and regular rhythm, normal S1/S1, no m/r/g LUNGS: CTAB, moving air well. No crackles or wheezes are heard. ABDOMEN: Soft, nontender, nondistended with good bowel sounds heard. BACK: No midline C/T/L spine pain or deformity, No CVAT, no obvious deformity. EXTREMITIES: Without cyanosis, clubbing or edema. MUSCULOSKELETAL: FROM of all major joints, no chest tenderness NEUROLOGICAL: Grossly nonfocal. Alert and oriented, moving all 4 extremities. CN not formally tested but appear grossly intact. Observed to ambulate with normal gait. Skin: Warm and dry without any rash. Course Quality Measures none Orders Category Date Time Status Admit to Inpatient Status Routine Admission 06/15/24 14:56 Active Patient Condition Routine Admission 06/15/24 14:56 Ordered Activity as Tolerated Routine Care 06/15/24 14:57 Ordered Flu & Pneumonia Vaccine Screen ONCE Care 06/15/24 14:56 Active Notify provider NEEDED Care 06/15/24 14:56 Active Obtain weight daily Care 06/15/24 14:57 Active Diet Renal Diet 06/15/24 Dinner Active CBC AM DRAW Lab 06/16/24 05:00 Ordered CBC AM DRAW Lab 06/17/24 05:00 Ordered CBC AM DRAW Lab 06/18/24 05:00 Ordered Comprehensive Metabolic Panel AM DRAW Lab 06/16/24 05:00 Ordered Comprehensive Metabolic Panel AM DRAW Lab 06/17/24 05:00 Ordered Comprehensive Metabolic Panel AM DRAW Lab 06/18/24 05:00 Ordered Magnesium AM DRAW Lab 06/16/24 05:00 Ordered Partial Thromboplastin Time AM DRAW Lab 06/16/24 05:00 Ordered Phosphorous AM DRAW Lab 06/16/24 05:00 Ordered Prothrombin Time with INR AM DRAW Lab 06/16/24 05:00 Ordered Acetaminophen Tab [Tylenol Tab] Med 06/15/24 14:56 Active 650 mg PO Q6H PRN Heparin Inj Med 06/15/24 21:00 Active 5,000 unit SC Q12HR Levothyroxine Sodium [Synthroid] Med 06/16/24 06:00 Active 50 mcg PO ACBR Losartan [Cozaar] Med 06/16/24 09:00 Active 50 mg PO QDAY MethylPREDNISolone.* [SoluMEDROL Inj] Med 06/16/24 09:00 Active 125 mg IVP QDAY Ondansetron Inj [Zofran Inj] Med 06/15/24 14:56 Active 4 mg IV Q6H PRN Pantoprazole Inj [Protonix Inj] Med 06/15/24 15:00 Active 40 mg IVP QDAY Senna [Senokot] Med 06/15/24 14:56 Active 1 tab PO QDAY PRN Code Status Routine Oth 06/15/24 14:56 Ordered Vital Signs Vital signs: Vital Signs Temperature 98.5 F 06/15/24 13:08 Pulse Rate 75 06/15/24 13:08 Respiratory Rate 16 06/15/24 13:08 Blood Pressure 131/82 H 06/15/24 13:08 Pulse Oximetry (%) 98 06/15/24 13:08 Oxygen Delivery Method Room Air 06/15/24 13:08 Recheck / Abnormal Lab / Rx MDM Narrative MDM Narrative:: I, Maryann Dempsey am scribing for and in the presence of Dr. Durand. Patient data External records reviewed:: [facility] previous records (Reviewed last oncology note by Dr. Macias, dated today 06/15/24.) Clinical information provided by:: patient Social determinants that could affect healthcare access:: none Patient has the following chronic illnesses:: Renal cancer, cancer doctor Gilberto. How is presenting disease/condition affected by chronic disease/condition?: exacerbated by Evaluation data The following diagnostics were reviewed and interpreted by me:: lab results Lab and/or radiology exams considered but not ordered:: none Interpretation Summary: ALT 687 Medications / Prescriptions Medications or Prescriptions considered but not ordered:: none Medication administrations:: Medication Administration History Acetaminophen (Acetaminophen 325 Mg Tablet) 650 mg PO Q6H PRN PRN Reason: Pain 1-3 and/or Fever >100.1 Stop: 07/15/24 14:55 Last Admin: 06/16/24 07:15 Dose: 650 mg Documented By: ROBERT Heparin Sodium (Porcine) (Heparin Sod Inj 5000 Unit/Ml Vial) 5,000 unit SC Q12HR [facility] Stop: 06/29/24 20:59 Last Admin: 06/15/24 21:23 Dose: 5,000 unit Documented By: ROBERT Co-signed By: NITIN Levothyroxine Sodium (Levothyroxine Sodium 25 Mcg Tablet) 50 mcg PO ACBR ARNOLDO Stop: 07/16/24 05:59 Last Admin: 06/16/24 05:56 Dose: 50 mcg Documented By: ROBERT Losartan Potassium (Losartan Potassium 25 Mg Tablet) 50 mg PO QDAY [facility] Stop: 07/16/24 08:59 Methylprednisolone Sodium Succinate (Methylprednisolone Sod Succ 62.5 Mg/Ml 2ml Vial) 125 mg IVP QDAY [facility] Stop: 06/23/24 08:59 Ondansetron HCl (Ondansetron Inj 2 Mg/Ml Inj 2 Ml) 4 mg IV Q6H PRN; Protocol PRN Reason: NAUSEA OR VOMITING Stop: 07/15/24 14:55 Pantoprazole Sodium (Pantoprazole Inj 40 Mg Vial) 40 mg IVP QDAY ARNOLDO Stop: 07/15/24 14:59 Last Admin: 06/15/24 19:07 Dose: 40 mg Documented By: JUAN FRANCISCO Sennosides (Senna Tablet) 1 tab PO QDAY PRN; Protocol PRN Reason: constipation Stop: 07/15/24 14:55 Discontinued Medications Sodium Chloride (Ns) 500 mls @ 80 mls/hr IV .Q6H15M [facility] Stop: 06/15/24 21:31 Last Admin: 06/15/24 19:07 Dose: 80 mls/hr Documented By: JUAN FRANCISCO see above Consultations Consultation(s) initiated? (list below): Yes Consultation #1 (Physician, Specialty, Details): Discussed test HPI, PMHx, lab, radiology results and/or management with cancer doctor Dr. Macias. See HPI for details. Time: 14:25 Consultation #2 (Physician, Specialty, Details): Discussed test HPI, PMHx, lab, radiology results and/or management with hospitalist. Will admit for further evaluation and management. Accepts patient for admission. Time: 14:35 Diagnosis Recheck Differential Diagnosis: other (hepatitis, cirrhosis, renal cancer) Most likely diagnosis given after review of the tests above:: Hepatitis Admission Indicated Admission indicated?: indicated Admission Request Was there a request for admission?: Yes Admission Attestation Admission request attestation: Discussed case with [] from Hospitalist service regarding admission. Discussed patients ED course, exam findings, labs, and radiology results. The Hospitalist [agrees,declines] to accept the patient for admission. Disposition Plan Disposition Plan: Admit Discharge Plan Plan Patient Disposition: Admit Acute Care w/in Hospital Problem List Clinical Impression: Hepatitis
--- NOTE | 2024-06-15 15:01 | ESHP_ITS ---
<Statement entered by Clint Felipe MD - 06/15/24 16:36> I discussed with and supervised the customer marketing intern physician involved in the care of this patient. Patient assessment and plan was discussed with entire medicine team, including my attending. I agree with the assessment and plan as documented by customer marketing intern doctor. Patient care was discussed with my attending physician Dr. Sammie Felipe, PGY-2 Documentation for date of: 06/15/24 HPI History of Present Illness Chief complaint: Elevated LFTs History of present illness: 69-year-old female with past medical history of hypertension, hyperlipidemia, hypothyroidism, breast cancer in 2019 status post mastectomy of the left breast, metastasis to the left kidney status post nephrectomy and recurrence in the last year with masses found in the lungs presented to the ED after liver function tests were abnormal at the cancer clinic. Patient follows Dr. 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 Patient was started on immunotherapy recently; however, upon checking AST/ALT, medications were stopped as she had elevated liver enzymes. Patient was started on oral prednisone which was tapered off and the last dose was on 06/10/2024. Patient today (06/15) followed up with repeat labs which showed persistently elevated AST ALT; moreover, patient was given 125 mg IV methylprednisolone at Dr. Hurley's office and told to go to the ED for close monitoring. Recommendations are that the patient be admitted and be given IV Solu-Medrol, IV Protonix, IV fluids and AST/ALT/bilirubin trended. Patient currently has no general complaints and feels fine. Medical history: Hypertension, hyperlipidemia, hypothyroidism, cancer history as stated above Surgical history: As stated above mastectomy and nephrectomy Allergies: NKDA Medications: Levothyroxine 50 mcg, losartan/HCTZ 50?12.5 milligram, lovastatin 20 mg, ibandronate 150 mg, exemestane 25 mg, Myra-Maurice vitamins and Caltrate Family history: Noncontributory Social history: Patient denies alcohol, tobacco or illicit drug use. Patient currently lives with her and son. ROS: All 12 systems assessed and the patient denies unless otherwise stated in HPI In the ED, patient presented mildly hypertensive 131/82, normal heart rate, normal respiration and afebrile satting 98 on room air. Pertinent lab findings included AST 326, ALT 687, alkaline phosphatase 42 and total bilirubin 1.2. 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 Exam Vital Signs Temp Pulse Resp BP Pulse Ox O2 Del Method 98.5 F 75 16 131/82 H 98 Room Air 06/15/24 13:08 06/15/24 13:08 06/15/24 13:08 06/15/24 13:08 06/15/24 13:08 06/15/24 13:08 Narrative Exam Physical Exam: GENERAL: Awake, answering questions appropriately, appears stated age. In a wheelchair. HEENT: NC/AT. Moist mucosa. PERRLA/EOMI. CARDIO: Heart RRR, no obvious murmurs, no JVD. Chemo-Port site noted on right midclavicular second intercostal area PULM: No coughing or visible SOB. Lungs CTA B/L. GI: Abdomen soft, NT/ND, +BS. SKIN/MSK/EXT: No wounds/discoloration/rashes/edema. +Pedal pulses present B/L. NEURO: Oriented x3, no focal neurologic deficits noted Results: Labs 06/16/24 04:40 06/16/24 04:40 Quality Measures Quality Measures VTE prophylaxis Advance care planning discussed with:: patient and child Medications Home Medications and Allergies Home Medications ?Medication ?Instructions ?Recorded ?Confirmed ?Type calcium 600 mg (as carbonate)-vit 2 tab PO DAILY 05/1602/10/24 History D3 20 mcg (800 unit) chewable tablet (Caltrate plus D) ibandronate 150 mg tablet 150 mg PO QMONTH 05/16/19 History lisinopril 20 mg tablet 20 mg PO QDAY 05/16/1906/15 History lovastatin 20 mg tablet 20 mg PO QPM 05/16/19 History exemestane 25 mg tablet 25 mg PO DAILY 02/04/2401/25 History vitamin B complex-vitamin C-folic 1 tab PO QDAY 06/15/24 History acid 0.8 mg tablet (Myra-Muarice) Allergies Allergy/AdvReac Type Severity Reaction Status Date / Time No Known Allergies Allergy Verified 06/15/24 12:32 Visit Medications Acetaminophen (Acetaminophen 325 Mg Tablet) 650 mg PO Q6H PRN PRN Reason: Pain 1-3 and/or Fever >100.1 Stop: 07/15/24 14:55 Heparin Sodium (Porcine) (Heparin Sod Inj 5000 Unit/Ml Vial) 5,000 unit SC Q12HR ARNOLDO Stop: 06/29/24 20:59 Levothyroxine Sodium (Levothyroxine Sodium 25 Mcg Tablet) 50 mcg PO ACBR ARNOLDO Stop: 07/16/24 05:59 Losartan Potassium (Losartan Potassium 25 Mg Tablet) 50 mg PO QDAY ARNOLDO Stop: 07/16/24 08:59 Methylprednisolone Sodium Succinate (Methylprednisolone Sod Succ 62.5 Mg/Ml 2ml Vial) 125 mg IVP QDAY ARNOLDO Stop: 06/23/24 08:59 Ondansetron HCl (Ondansetron Inj 2 Mg/Ml Inj 2 Ml) 4 mg IV Q6H PRN; Protocol PRN Reason: NAUSEA OR VOMITING Stop: 07/15/24 14:55 Pantoprazole Sodium (Pantoprazole Inj 40 Mg Vial) 40 mg IVP QDAY ARNOLDO Stop: 07/15/24 14:59 Sennosides (Senna Tablet) 1 tab PO QDAY PRN; Protocol PRN Reason: constipation Stop: 07/15/24 14:55 Assessment & Plan Plan 69-year-old female with past medical history of hypertension, hyperlipidemia, hypothyroidism, breast cancer in 2019 status post mastectomy of the left breast, metastasis to the left kidney status post nephrectomy and recurrence in the last year with masses found in the lungs presented after liver function tests were abnormal at the cancer clinic will be admitted for IV steroid therapy secondary to 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 #Immune therapy associated hepatitis #Elevated liver enzymes Patient was recently started on immunotherapy secondary to metastatic cancer, with spread to lungs Patient immunotherapy was held and she was started on oral prednisone about 3 weeks ago; which was tapered and last dose was 06/10/2024 Patient had repeat liver function test with Dr. Hurley today (06/15) - which showed persistent elevation Patient is brought into the ED for IV steroid, IV Protonix and IV fluid treatment Currently patient's LFTs: AST 326, ALT 687, alk phos 42 and T bilirubin 1.2 Plan: IV Solu-Medrol 125 mg daily IV Protonix 40 mg daily IV fluid, 500 cc at 80 cc/h for 1 bag Monitor with morning labs If patient's LFTs continue to worsen with IV Solu-Medrol; will look into transferring patient to higher acuity care for hepatology consultation #History of metastatic cancer #Clear-cell renal cell carcinoma #Breast cancer status postmastectomy #Status post nephrectomy, left side As noted in HPI patient has significant history of metastatic cancer Initially on immunotherapy but was stopped secondary to immunotherapy associated hepatitis Patient follows Dr. Hurley Patient on exemestane 25 mg p.o. daily Patient also on ibandronate 150 mg daily Plan: Will hold ibandronate and exemestane at this time Monitor for any acute changes #Hypertension Patient on home losartan?hydrochlorothiazide 50-12.5 mg daily Currently normotensive Plan: Restart losartan 50 mg Will consider restarting hydrochlorothiazide if patient has hypertension #Hyperlipidemia Patient is on lovastatin 20 mg daily Plan: Will hold for now, restart on discharge Patient is also on Myra-Maurice and Caltrate vitamins We will hold for now, restart on discharge #Hypothyroidism Patient on home levothyroxine 50 mcg Plan: Restarted home medication Hospital Management: Lines: PIV Diet: Renal Bowel: Senna, as needed GI prophylaxis: Protonix IV DVT prophylaxis: Heparin subcu Dispo: Monitoring liver function enzymes, treating with IV steroids Code: Full Patient seen and assessed with attending Dr. Cochran and senior resident Dr. Destinee Ramirez, PGY-1 Attending Provider Attestation/Addendum I, Lotus Cochran DO, attest that I was physically present for the carlos portions of the service and evaluated the patient with the resident and I reviewed and discussed the case with the resident and agree with the resident's findings and plans of care as documented above Patient is a 69-year-old female with past medical history hypertension, hyperlipidemia, hypothyroidism, breast cancer status postmastectomy, renal cell carcinoma status post nephrectomy with metastasis to the lungs. Patient had been on immunotherapy outpatient during which she was found to have medication induced transaminitis. Patient was subsequently started on prednisone with some improvement of her LFTs. Patient was found again to have transaminitis once prednisone was discontinued. Patient was subsequently referred by oncologist to be admitted for further workup and managment of medication induced transaminitis. Will start IV steroids, protonix and IV fluids. Will continue to trend LFTs. If LFTs do not respond to steroids, patient may need transfer for further evaluation by hepatology with which patient and son verbalize understanding. Will admit to med/surg. Patient denies any abdominal pain, nausea, vomiting, fevers, chills otherwise.
[2024-06-15 16:45] VITALS: BP 119/75; PULSE 79; RESP 16; TEMP 37; O2SAT 97
[2024-06-15 18:31] VITALS: BP 135/86; RESP 16; TEMP 36.8; O2SAT 100
[2024-06-15 19:06] VITALS: BP 139/84; RESP 19; TEMP 36.9; O2SAT 98
[2024-06-15] MEDS: SODIUM CHLORIDE 0.9% 500 ML 500 ML 80 ML IV (19:07)
[2024-06-15] MEDS: PANTOPRAZOLE INJ 40 MG VIAL IVP (19:07)
--- NOTE | 2024-06-15 19:07 | PC.NURSE ---
PER DR. LATISHA WOODWARD TO USE ACCESSED PORT TO RIGHT UPPER CHEST.
[2024-06-15 19:35] VITALS: BMI 29.7
[2024-06-15 20:00] VITALS: BP 127/81; PULSE 85; RESP 20; TEMP 36.6; O2SAT 97
[2024-06-15] MEDS: HEPARIN SOD INJ 5000 UNIT/ML VIAL SC (21:23)
[2024-06-15 22:12] VITALS: PULSE 78
[2024-06-15 22:39] LABS: Bilirubin,Direct 0.3 mg/dL (0.0-0.3); Bilirubin,Total 0.9 mg/dL (0.3-1.2)
[2024-06-15 22:40] LABS: Alanine Aminotransferase 642 U/L (10-49); Alkaline Phosphatase 42 U/L (46-116); Aspartate Amino Transferase 244 U/L (0-34)
[2024-06-16] VITALS (9 sets, daily range): BP systolic 100–111; BP diastolic 62–80; PULSE 69–85; RESP 16–20; TEMP 36.1–36.6; O2SAT 96–98
[2024-06-16 05:25] LABS: Basophils % (Auto) 0 % (0-2.5); Eosinophils % (Auto) 0 % (0-10); Hematocrit 40.4 % (36.0-46.0); Hemoglobin 13.5 g/dL (12.0-16.0); Immature Granulocytes % (Auto) 1 % (0-0); Immature Granulocytes Auto 0.09 Thou/mm3 (0.00-0.00); Lymphocytes # (Auto) 0.5 Thou/mm3 (1.0-4.8); Lymphocytes % (Auto) 4 % (10-50); Mean Corpuscular HGB Conc 33.4 g/dl (31.0-37.0); Mean Corpuscular Hemoglobin 27.4 pg (25.0-35.0); Mean Corpuscular Volume 82 fL (80-100); Monocytes # (Auto) 0.3 Thou/mm3 (0.0-0.8); Monocytes % (Auto) 3 % (0-12); Neutrophils # (Auto) 12.5 Thou/mm3 (1.8-7.7); Neutrophils % (Auto) 93 % (37-80); Nucleated Red Blood Cell % 0 /100 WBC (0); Platelet Count 159 Thou/mm3 (140-440); Red Blood Count 4.92 Miln/mm3 (4.00-5.20); White Blood Count 13.4 Thou/mm3 (3.6-11.0)
[2024-06-16 05:35] LABS: INR 1.1 (0.9-1.3); Partial Thromboplastin Time 25.8 Seconds (22.0-36.0); Prothrombin Time 11.7 Seconds (9.0-12.2)
[2024-06-16] MEDS: LEVOTHYROXINE SODIUM 25 MCG TABLET 50 MCG PO (05:56)
[2024-06-16 06:34] LABS: Alanine Aminotransferase 539 U/L (10-49); Albumin, Serum 3.5 gm/dL (3.4-4.8); Albumin/Globulin Ratio 1.9 (1.2-2.2); Alkaline Phosphatase 38 U/L (46-116); Anion Gap 11 (7-16); Aspartate Amino Transferase 177 U/L (0-34); BUN/Creatinine Ratio 18 Ratio (12-20); Blood Urea Nitrogen 16 mg/dL (9-23); Calcium 8.7 mg/dL (8.3-10.6); Calcium (Corrected) 9.1 mg/dL (8.5-10.1); Carbon Dioxide 24.4 mMol/L (20.0-31.0); Chloride 102 mMol/L (98-107); Creatinine (Component) 0.9 mg/dL (0.6-1.3); Estimated Creatinine Clearance 51.2 mL/min (>60); Globulin 1.8 gm/dL (2.3-3.5); Glucose 144 mg/dL (74-106); Magnesium 2.1 mg/dL (1.6-2.6); Osmolality,Calculated 278 (275-295); Phosphorous 1.7 mg/dL (2.4-5.1); Potassium 3.6 mMol/L (3.4-5.1); Sodium 137 mMol/L (136-145); Total Protein 5.3 gm/dL (5.7-8.2); eGFR > 60 See Note
[2024-06-16] MEDS: ACETAMINOPHEN 325 MG TABLET 650 MG PO (07:15)
--- NOTE | 2024-06-16 08:07 | XR_ITS ---
Examination: Abdomen sonogram, Limited Date and time of exam: June 16, 2024 1127 hours INDICATIONS: Staging, diagnosis metastatic carcinoma Technique: Real-time subramanian scale transabdominal sonographic images of the upper abdomen obtained. Findings: Negative for gallstones Gallbladder wall 0.3 cm no edema Common bile duct 0.2 cm Pancreatic head 2.2 cm Liver 12.6 cm fatty infiltration no focal liver lesions Normal hepatopedal portal venous oh Patent IVC IMPRESSION: Negative for cholelithiasis, negative for cholecystitis Fatty liver no focal liver lesions
[2024-06-16] MEDS: POT PHOS 15 mMol in NS 250 ML 15 MMOL/250 ML BAG 62.5 MMOL IV (09:32)
[2024-06-16] MEDS: PANTOPRAZOLE INJ 40 MG VIAL IVP (09:33)
[2024-06-16] MEDS: LOSARTAN POTASSIUM 25 MG TABLET 50 MG PO (09:33)
[2024-06-16] MEDS: MethylPREDNISolone SOD SUCC 62.5 MG/ML 2ML VIAL 125 MG IVP (09:33)
[2024-06-16] MEDS: HEPARIN SOD INJ 5000 UNIT/ML VIAL SC ×2 (09:34→21:15)
--- NOTE | 2024-06-16 11:44 | ESPR_ITS ---
<Statement entered by Clint Felipe MD - 06/17/24 07:37> I discussed with and supervised the finance intern physician involved in the care of this patient. Patient assessment and plan was discussed with entire medicine team, including my attending. I agree with the assessment and plan as documented by finance intern doctor. Patient care was discussed with my attending physician Dr. Sammie Felipe, PGY-2 Documentation for date of: 06/16/24 Subjective Subjective Interval history: 06/16/2024: No acute overnight events to report. Patient seen and examined hospital bed with no concerning symptoms and appears generally well. Patient's liver enzymes are downtrending at this time; moreover, we are continuing to monitor every 8 hour. Patient continues to receive IV methylprednisolone and we will transition to oral steroids and taper upon discharge. Patient's Protonix also changed from IV to p.o. as we expect discharge within the next 24 to 48 hours. Patient will follow-up with oncology upon discharge. Exam Vital Signs Temp Pulse Resp BP Pulse Ox O2 Del Method 97.8 F 72 16 104/80 96 Room Air 06/16/24 08:00 06/16/24 09:33 06/16/24 08:00 06/16/24 09:33 06/16/24 08:00 06/16/24 08:00 Narrative Exam Physical Exam: GENERAL: Awake, answering questions appropriately, appears stated age. In a wheelchair. HEENT: NC/AT. Moist mucosa. PERRLA/EOMI. CARDIO: Heart RRR, no obvious murmurs, no JVD. Chemo-Port site noted on right midclavicular second intercostal area PULM: No coughing or visible SOB. Lungs CTA B/L. GI: Abdomen soft, NT/ND, +BS. SKIN/MSK/EXT: No wounds/discoloration/rashes/edema. +Pedal pulses present B/L. NEURO: Oriented x3, no focal neurologic deficits noted Objective Labs 06/16/24 04:40 06/16/24 04:40 Labs: Laboratory Results - last 24 hr 06/15/24 06/16/24 22:02 04:40 WBC 13.4 H D RBC 4.92 Hgb 13.5 Hct 40.4 MCV 82 MCH 27.4 MCHC 33.4 RDW Std Deviation 49.0 H Plt Count 159 Neut % (Auto) 93 H Lymph % (Auto) 4 L [place] % (Auto) 3 Eos % (Auto) 0 Baso % (Auto) 0 Neut # (Auto) 12.5 H Lymph # (Auto) 0.5 L [place] # (Auto) 0.3 Eos # (Auto) 0.0 Baso # (Auto) 0.0 Immature Gran # (Auto) 0.09 H Absolute Nucleated RBC 0.00 Immature Gran % 1 H Nucleated RBC % 0 PT 11.7 INR 1.1 APTT 25.8 Sodium 137 Potassium 3.6 Chloride 102 Carbon Dioxide 24.4 Anion Gap 11 BUN 16 Creatinine 0.9 Estim Creat Clear Calc 51.2 L eGFR > 60 BUN/Creatinine Ratio 18 Glucose 144 H Calculated Osmolality 278 Calcium 8.7 Corrected Calcium 9.1 Phosphorus 1.7 L Magnesium 2.1 Total Bilirubin 0.9 1.0 Direct Bilirubin 0.3 AST 244 H 177 H ALT 642 H* 539 H* Alkaline Phosphatase 42 L 38 L Total Protein 6.0 5.3 L Albumin 4.0 3.5 D Globulin 1.8 L Albumin/Globulin Ratio 1.9 Quality Measures Quality Measures none Advance care planning discussed with:: patient and child Assessment & Plan Assessment Current Active Medications: Generic Name Dose Route Start Last Admin Trade Name Freq PRN Reason Stop Dose Admin Heparin Sodium (Porcine) 5,000 unit 06/15/24 21:00 06/16/24 09:34 Heparin Sod Inj 5000 Unit/Ml Vial SC 06/29/24 20:59 5,000 unit Q12HR ARNOLDO Administration Potassium Phosphate 15 mmol in 250 mls @ 62.5 mls/hr 06/16/24 08:36 06/16/24 09:32 Pot Phos 15 Mmol In Ns 250 Ml IV 06/16/24 12:35 62.5 mls/hr X1 ONE Administration Levothyroxine Sodium 50 mcg 06/16/24 06:00 06/16/24 05:56 Levothyroxine Sodium 25 Mcg Tablet PO 07/16/24 05:59 50 mcg ACBR ARNOLDO Administration Losartan Potassium 50 mg 06/16/24 09:00 06/16/24 09:33 Losartan Potassium 25 Mg Tablet PO 07/16/24 08:59 50 mg QDAY ARNOLDO Administration Methylprednisolone Sodium Succinate 125 mg 06/16/24 09:00 06/16/24 09:33 Methylprednisolone Sod Succ 62.5 Mg/Ml 2ml Vial IVP 06/23/24 08:59 125 mg QDAY ARNOLDO Administration Ondansetron HCl 4 mg 06/15/24 14:56 Ondansetron Inj 2 Mg/Ml Inj 2 Ml IV 07/15/24 14:55 Q6H PRN NAUSEA OR VOMITING Protocol Pantoprazole Sodium 40 mg 06/15/24 15:00 06/16/24 09:33 Pantoprazole Inj 40 Mg Vial IVP 07/15/24 14:59 40 mg QDAY ARNOLDO Administration Sennosides 1 tab 06/15/24 14:56 Senna Tablet PO 07/15/24 14:55 QDAY PRN constipation Protocol Plan 69-year-old female with past medical history of hypertension, hyperlipidemia, hypothyroidism, breast cancer in 2019 status post mastectomy of the left breast, metastasis to the left kidney status post nephrectomy and recurrence in the last year with masses found in the lungs presented after liver function tests were abnormal at the cancer clinic will be admitted for IV steroid therapy secondary to 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 #Immune therapy associated hepatitis #Elevated liver enzymes Patient was recently started on immunotherapy secondary to metastatic cancer, with spread to lungs Patient immunotherapy was held and she was started on oral prednisone about 3 weeks ago; which was tapered and last dose was 06/10/2024 Patient had repeat liver function test with Dr. Hurley today (06/15) - which showed persistent elevation Patient is brought into the ED for IV steroid, IV Protonix and IV fluid treatment Currently patient's LFTs: AST 326, ALT 687, alk phos 42 and T bilirubin 1.2 U/S Liver shows Negative for cholelithiasis, negative for cholecystitis and Fatty liver no focal liver lesions Plan: Liver panel every 8 hours IV Solu-Medrol 125 mg daily Will transition to p.o. steroids and taper upon discharge IV Protonix 40 mg daily will transition to p.o. If patient's LFTs worsen; will look into transferring patient to higher acuity care for hepatology consultation #History of metastatic cancer #Clear-cell renal cell carcinoma #Breast cancer status postmastectomy #Status post nephrectomy, left side As noted in HPI patient has significant history of metastatic cancer Initially on immunotherapy but was stopped secondary to immunotherapy associated hepatitis Patient follows Dr. Hurley Patient on exemestane 25 mg p.o. daily Patient also on ibandronate 150 mg daily Plan: Will hold ibandronate and exemestane at this time Monitor for any acute changes #Hypertension Patient on home losartan?hydrochlorothiazide 50-12.5 mg daily Currently normotensive Plan: Restart losartan 50 mg Will consider restarting hydrochlorothiazide if patient has hypertension; patient remains normotensive #Hyperlipidemia Patient is on lovastatin 20 mg daily Plan: Will hold for now, restart on discharge Patient is also on Myra-Maurice and Caltrate vitamins Continue to hold, restart on discharge #Hypothyroidism Patient on home levothyroxine 50 mcg Plan: Restarted home medication Hospital Management: Lines: PIV Diet: Renal Bowel: Senna, as needed GI prophylaxis: Protonix IV DVT prophylaxis: Heparin subcu Dispo: Monitoring liver function enzymes, treating with IV steroids Code: Full Patient seen and assessed with attending Dr. Cochran and senior resident Dr. Destinee Ramirez, PGY-1 Attending Provider Attestation/Addendum Lotus Slater, , attest that I was physically present for the carlos portions of the service and evaluated the patient with the resident and I reviewed and discussed the case with the resident and agree with the resident's findings and plans of care as documented above Patient seen and evaluated this Am. Daughter at bedside. Patient has no complaints, tolerating PO intake. She denies any RUQ pain, nausea, vomiting, fevers or chills. LFTs improving with steroids. Will continue with solumedrol, anticipate DC in AM if LFTs improve. Will need steroid taper for next 4 weeks given Grade 3 immunotherapy induced hepatitis.
[2024-06-16 13:27] LABS: Alanine Aminotransferase 525 U/L (10-49); Albumin, Serum 3.9 gm/dL (3.4-4.8); Alkaline Phosphatase 45 U/L (46-116); Aspartate Amino Transferase 155 U/L (0-34); Bilirubin,Direct 0.4 mg/dL (0.0-0.3); Bilirubin,Total 1.2 mg/dL (0.3-1.2); Total Protein 5.8 gm/dL (5.7-8.2)
--- NOTE | 2024-06-16 15:29 | PC.SS ---
SS met with patient regarding his d/c plan.? Pt is alert/oriented.? Pt was admitted for Evelated Liver Enzymes.? Pt confirmed demographic and contact information is correct on facesheet.? Pt resides with and son.? Pt ambulates independently without assistance or DME.? Pt is ok with all ADLs.? Pt named his son, Isak Roach medical decision maker if he is unable.? SS provided pt with verbal options to home or SNF.? Patient?s choice is to return home upon d/c.? Pt states she has an advance directive at home.? Pt states not diabetic and is not on dialysis.? Pt states she last followed up with PCP? in April. D/C plan:? Return home Next of Kin:? Isak Roach, son, phone# [phone] PCP:? Dr. Mateus Moore from [facility] in [place] Address:? Correct on facesheet
[2024-06-16] MEDS: SODIUM CHLORIDE 0.9% 1000 ML 1,000 ML 75 ML IV (18:10)
[2024-06-16 21:52] LABS: Alanine Aminotransferase 448 U/L (10-49); Albumin, Serum 3.5 gm/dL (3.4-4.8); Alkaline Phosphatase 43 U/L (46-116); Aspartate Amino Transferase 109 U/L (0-34); Bilirubin,Direct 0.2 mg/dL (0.0-0.3); Bilirubin,Total 0.7 mg/dL (0.3-1.2); Total Protein 5.3 gm/dL (5.7-8.2)
[2024-06-17] VITALS (7 sets, daily range): BP systolic 97–119; BP diastolic 54–85; PULSE 61–84; RESP 17–19; TEMP 36.1–36.7; O2SAT 95–98
[2024-06-17] MEDS: LEVOTHYROXINE SODIUM 25 MCG TABLET 50 MCG PO (05:00)
[2024-06-17 05:06] LABS: Basophils % (Auto) 0 % (0-2.5); Eosinophils % (Auto) 0 % (0-10); Hematocrit 36.9 % (36.0-46.0); Hemoglobin 12.4 g/dL (12.0-16.0); Immature Granulocytes % (Auto) 1 % (0-0); Lymphocytes # (Auto) 0.4 Thou/mm3 (1.0-4.8); Lymphocytes % (Auto) 3 % (10-50); Mean Corpuscular HGB Conc 33.6 g/dl (31.0-37.0); Mean Corpuscular Hemoglobin 28.1 pg (25.0-35.0); Mean Corpuscular Volume 84 fL (80-100); Monocytes # (Auto) 0.8 Thou/mm3 (0.0-0.8); Monocytes % (Auto) 5 % (0-12); Neutrophils # (Auto) 15.4 Thou/mm3 (1.8-7.7); Neutrophils % (Auto) 92 % (37-80); Nucleated Red Blood Cell % 0 /100 WBC (0); Platelet Count 147 Thou/mm3 (140-440); RDW Standard Deviation 51.7 fL (36.4-46.3); Red Blood Count 4.42 Miln/mm3 (4.00-5.20); White Blood Count 16.7 Thou/mm3 (3.6-11.0)
[2024-06-17 05:34] LABS: Alanine Aminotransferase 380 U/L (10-49); Albumin, Serum 3.3 gm/dL (3.4-4.8); Alkaline Phosphatase 39 U/L (46-116); Anion Gap 9 (7-16); Aspartate Amino Transferase 85 U/L (0-34); BUN/Creatinine Ratio 20 Ratio (12-20); Bilirubin,Direct 0.2 mg/dL (0.0-0.3); Bilirubin,Total 0.6 mg/dL (0.3-1.2); Blood Urea Nitrogen 16 mg/dL (9-23); Calcium 8.4 mg/dL (8.3-10.6); Carbon Dioxide 25.3 mMol/L (20.0-31.0); Chloride 106 mMol/L (98-107); Creatinine (Component) 0.8 mg/dL (0.6-1.3); Estimated Creatinine Clearance 57.6 mL/min (>60); Glucose 141 mg/dL (74-106); Osmolality,Calculated 282 (275-295); Potassium 3.8 mMol/L (3.4-5.1); Sodium 140 mMol/L (136-145); Total Protein 4.8 gm/dL (5.7-8.2); eGFR > 60 See Note
[2024-06-17] MEDS: predniSONE 20 MG TABLET 140 MG PO (08:13)
[2024-06-17] MEDS: HEPARIN SOD INJ 5000 UNIT/ML VIAL SC ×2 (08:13→21:18)
[2024-06-17] MEDS: PANTOPRAZOLE 40 MG TABLET PO (08:13)
--- NOTE | 2024-06-17 13:08 | ESPR_ITS ---
<Statement entered by Clint Felipe MD - 06/17/24 15:52> I discussed with and supervised the technical support intern physician involved in the care of this patient. Patient assessment and plan was discussed with entire medicine team, including my attending. I agree with the assessment and plan as documented by technical support intern doctor. Patient care was discussed with my attending physician Dr. Sammie Felipe, PGY-2 Documentation for date of: 06/17/24 Subjective Subjective Interval history: 06/17/2024: No acute overnight events to report. Patient seen and examined reports no concerning symptoms and appears generally well. Will transition patient from IV methylprednisolone to p.o. prednisone 140 mg. Plan to discharge within the next 24 hours with prednisone taper; additionally, will discharge with Bactrim and Protonix for prophylaxis secondary to long-term glucocorticoid use. Patient will have a follow-up appointment with unit educator/oncologist on Tuesday 06/20. Will continue to monitor patient for any acute changes. Exam Vital Signs Temp Pulse Resp BP Pulse Ox O2 Del Method 97.0 F 66 17 104/64 97 Room Air 06/17/24 08:00 06/17/24 08:19 06/17/24 08:00 06/17/24 08:19 06/17/24 08:00 06/17/24 08:00 Narrative Exam Physical Exam: GENERAL: Awake, answering questions appropriately, appears stated age. In a wheelchair. HEENT: NC/AT. Moist mucosa. PERRLA/EOMI. CARDIO: Heart RRR, no obvious murmurs, no JVD. Chemo-Port site noted on right midclavicular second intercostal area PULM: No coughing or visible SOB. Lungs CTA B/L. GI: Abdomen soft, NT/ND, +BS. SKIN/MSK/EXT: No wounds/discoloration/rashes/edema. +Pedal pulses present B/L. NEURO: Oriented x3, no focal neurologic deficits noted Objective Labs 06/18/24 05:37 06/18/24 05:37 Labs: Laboratory Results - last 24 hr 06/16/24 06/16/24 06/17/24 12:40 21:22 04:41 WBC 16.7 H RBC 4.42 Hgb 12.4 Hct 36.9 MCV 84 MCH 28.1 MCHC 33.6 RDW Std Deviation 51.7 H Plt Count 147 Neut % (Auto) 92 H Lymph % (Auto) 3 L [place] % (Auto) 5 Eos % (Auto) 0 Baso % (Auto) 0 Neut # (Auto) 15.4 H Lymph # (Auto) 0.4 L [place] # (Auto) 0.8 Eos # (Auto) 0.0 Baso # (Auto) 0.0 Immature Gran # (Auto) 0.10 H Absolute Nucleated RBC 0.00 Immature Gran % 1 H Nucleated RBC % 0 Sodium 140 Potassium 3.8 Chloride 106 Carbon Dioxide 25.3 Anion Gap 9 BUN 16 Creatinine 0.8 Estim Creat Clear Calc 57.6 L eGFR > 60 BUN/Creatinine Ratio 20 Glucose 141 H Calculated Osmolality 282 Calcium 8.4 Total Bilirubin 1.2 0.7 D 0.6 Direct Bilirubin 0.4 H 0.2 0.2 AST 155 H 109 H 85 H ALT 525 H* 448 H 380 H Alkaline Phosphatase 45 L 43 L 39 L Total Protein 5.8 5.3 L 4.8 L Albumin 3.9 3.5 3.3 L Quality Measures Quality Measures none Advance care planning discussed with:: patient Assessment & Plan Assessment Current Active Medications: Generic Name Dose Route Start Last Admin Trade Name Freq PRN Reason Stop Dose Admin Heparin Sodium (Porcine) 5,000 unit 06/15/24 21:00 06/17/24 08:13 Heparin Sod Inj 5000 Unit/Ml Vial SC 06/29/24 20:59 5,000 unit Q12HR ARNOLDO Administration Levothyroxine Sodium 50 mcg 06/16/24 06:00 06/17/24 05:00 Levothyroxine Sodium 25 Mcg Tablet PO 07/16/24 05:59 50 mcg ACBR ARNOLDO Administration Losartan Potassium 50 mg 06/16/24 09:00 06/17/24 08:19 Losartan Potassium 25 Mg Tablet PO 07/16/24 08:59 Not Given QDAY ARNOLDO Ondansetron HCl 4 mg 06/15/24 14:56 Ondansetron Inj 2 Mg/Ml Inj 2 Ml IV 07/15/24 14:55 Q6H PRN NAUSEA OR VOMITING Protocol Pantoprazole Sodium 40 mg 06/17/24 09:00 06/17/24 08:13 Pantoprazole 40 Mg Tablet PO 07/17/24 08:59 40 mg QDAY ARNOLDO Administration Prednisone 140 mg 06/17/24 09:00 06/17/24 08:13 Prednisone 20 Mg Tablet PO 06/24/24 07:38 140 mg QDAY ARNOLDO Administration Sennosides 1 tab 06/15/24 14:56 Senna Tablet PO 07/15/24 14:55 QDAY PRN constipation Protocol Plan 69-year-old female with past medical history of hypertension, hyperlipidemia, hypothyroidism, breast cancer in 2019 status post mastectomy of the left breast, metastasis to the left kidney status post nephrectomy and recurrence in the last year with masses found in the lungs presented after liver function tests were abnormal at the cancer clinic will be admitted for IV steroid therapy secondary to 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 #Immune therapy associated hepatitis #Elevated liver enzymes Patient was recently started on immunotherapy secondary to metastatic cancer, with spread to lungs Patient immunotherapy was held and she was started on oral prednisone about 3 weeks ago; which was tapered and last dose was 06/10/2024 Patient had repeat liver function test with Dr. Hurley today (06/15) - which showed persistent elevation Patient is brought into the ED for IV steroid, IV Protonix and IV fluid treatment U/S Liver shows Negative for cholelithiasis, negative for cholecystitis and Fatty liver no focal liver lesions LFTs are progressively downtrending Plan: Liver panel every 8 hours Transition to prednisone 140 mg p.o. daily Will taper upon discharge Transition to Protonix 40 mg p.o. daily Will initiate Bactrim upon discharge for prophylactic antibacterial coverage X 1 of Magic mouthwash If patient's LFTs worsen; will look into transferring patient to higher acuity care for hepatology consultation #History of metastatic cancer #Clear-cell renal cell carcinoma #Breast cancer status postmastectomy #Status post nephrectomy, left side As noted in HPI patient has significant history of metastatic cancer Initially on immunotherapy but was stopped secondary to immunotherapy associated hepatitis Patient follows Dr. Hurley Patient on exemestane 25 mg p.o. daily Patient also on ibandronate 150 mg daily Plan: Will hold ibandronate and exemestane at this time Monitor for any acute changes #Hypertension Patient on home losartan?hydrochlorothiazide 50-12.5 mg daily Currently normotensive Plan: Continue losartan 50 mg Will consider restarting hydrochlorothiazide if patient has hypertension; patient remains normotensive #Hyperlipidemia Patient is on lovastatin 20 mg daily Plan: Patient is also on Myar-Maurice and Caltrate vitamins Continue to hold, restart on discharge #Hypothyroidism Patient on home levothyroxine 50 mcg Plan: Continue home medication Hospital Management: Lines: PIV Diet: Renal Bowel: Senna, as needed GI prophylaxis: Protonix IV DVT prophylaxis: Heparin subcu Dispo: Monitoring liver function enzymes, treating with IV steroids Code: Full Patient seen and assessed with attending Dr. Cochran and senior resident Dr. Destinee Ramirez, PGY-1 Attending Provider Attestation/Addendum Nohemy, Lotus Cochran DO, attest that I was physically present for the carlos portions of the service and evaluated the patient with the resident and I reviewed and discussed the case with the resident and agree with the resident's findings and plans of care as documented above LFTs improving. Patient reports no complaints, nausea, vomiting, abdominal pain otherwise. Will continue to trend LFTs. Case discussed with oncology. Anticipate DC in AM. Will send home with slow taper starting at 120mg PO daily, along with bactrim for PJP prophylaxis and protonix for GI prophylaxis.
[2024-06-17] MEDS: LIDOCAINE 2% VISCOUS 10 ML, DiphenhydrAMINE 25 MG, MG HYD/AL HYD/SIME SUSP 30 ML, NYSTA... PO (13:28)
[2024-06-17 13:48] LABS: Alanine Aminotransferase 403 U/L (10-49); Albumin, Serum 3.7 gm/dL (3.4-4.8); Alkaline Phosphatase 45 U/L (46-116); Aspartate Amino Transferase 93 U/L (0-34); Bilirubin,Direct 0.2 mg/dL (0.0-0.3); Bilirubin,Total 0.7 mg/dL (0.3-1.2); Total Protein 5.4 gm/dL (5.7-8.2)
--- NOTE | 2024-06-17 15:12 | PC.SS ---
Follow up note: Treating with IV steroids. Possible d/c home tomorrow.
[2024-06-17 21:47] LABS: Alanine Aminotransferase 363 U/L (10-49); Albumin, Serum 3.6 gm/dL (3.4-4.8); Alkaline Phosphatase 41 U/L (46-116); Aspartate Amino Transferase 67 U/L (0-34); Bilirubin,Direct 0.2 mg/dL (0.0-0.3); Bilirubin,Total 0.7 mg/dL (0.3-1.2); Total Protein 5.3 gm/dL (5.7-8.2)
[2024-06-18] VITALS: BP 135/77; PULSE 64; PULSE 77; RESP 17; TEMP 36.3; O2SAT 97
[2024-06-18 04:00] VITALS: BP 103/67; PULSE 58; PULSE 60; RESP 16; TEMP 36.4; O2SAT 98
[2024-06-18] MEDS: LEVOTHYROXINE SODIUM 25 MCG TABLET 50 MCG PO (05:17)
[2024-06-18 06:37] LABS: Basophils % (Auto) 0 % (0-2.5); Eosinophils % (Auto) 0 % (0-10); Hematocrit 37.7 % (36.0-46.0); Hemoglobin 12.5 g/dL (12.0-16.0); Lymphocytes % (Auto) 5 % (10-50); Mean Corpuscular HGB Conc 33.2 g/dl (31.0-37.0); Mean Corpuscular Volume 85 fL (80-100); Monocytes % (Auto) 7 % (0-12); Neutrophils % (Auto) 87 % (37-80); Platelet Count 156 Thou/mm3 (140-440); RDW Standard Deviation 53.1 fL (36.4-46.3); Red Blood Count 4.46 Miln/mm3 (4.00-5.20); White Blood Count 14.2 Thou/mm3 (3.6-11.0)
[2024-06-18 06:38] LABS: Immature Granulocytes % (Auto) 0 % (0-0); Immature Granulocytes Auto 0.06 Thou/mm3 (0.00-0.00); Lymphocytes # (Auto) 0.7 Thou/mm3 (1.0-4.8); Neutrophils # (Auto) 12.4 Thou/mm3 (1.8-7.7); Nucleated Red Blood Cell % 0 /100 WBC (0)
[2024-06-18 06:58] LABS: Alanine Aminotransferase 302 U/L (10-49); Albumin, Serum 3.2 gm/dL (3.4-4.8); Alkaline Phosphatase 36 U/L (46-116); Anion Gap 7 (7-16); Aspartate Amino Transferase 52 U/L (0-34); BUN/Creatinine Ratio 21 Ratio (12-20); Bilirubin,Direct 0.2 mg/dL (0.0-0.3); Bilirubin,Total 0.6 mg/dL (0.3-1.2); Blood Urea Nitrogen 15 mg/dL (9-23); Calcium 8.1 mg/dL (8.3-10.6); Carbon Dioxide 27.5 mMol/L (20.0-31.0); Chloride 106 mMol/L (98-107); Creatinine (Component) 0.7 mg/dL (0.6-1.3); Estimated Creatinine Clearance 66.9 mL/min (>60); Glucose 93 mg/dL (74-106); Osmolality,Calculated 280 (275-295); Potassium 3.9 mMol/L (3.4-5.1); Sodium 140 mMol/L (136-145); Total Protein 4.8 gm/dL (5.7-8.2); eGFR > 60 See Note
[2024-06-18 08:00] VITALS: BP 108/70; PULSE 56; PULSE 62; RESP 16; TEMP 36.1; O2SAT 99
[2024-06-18 09:13] VITALS: BP 108/70; PULSE 56
[2024-06-18] MEDS: HEPARIN SOD INJ 5000 UNIT/ML VIAL SC (09:13)
[2024-06-18] MEDS: predniSONE 20 MG TABLET 140 MG PO (09:13)
[2024-06-18] MEDS: LOSARTAN POTASSIUM 25 MG TABLET 50 MG PO (09:13)
[2024-06-18] MEDS: PANTOPRAZOLE 40 MG TABLET PO (09:14)
[2024-06-18 12:00] VITALS: BP 148/94; PULSE 76; RESP 16; TEMP 36.2; O2SAT 98
[2024-06-18] MEDS: HEPARIN SOD LOCK SYR 100 UNIT/ML 500 UNIT IV (12:37)
--- NOTE | 2024-06-18 14:59 | ESDS_ITS ---
<Statement entered by Lotus Cochran DO - 06/20/24 12:37> I, Lotus Cochran DO, attest that I was physically present for the carlos portions of the service and evaluated the patient with the resident and I reviewed and discussed the case with the resident and agree with the resident's findings and plans of care as documented above Planned Discharge Date 06/18/24 DS: Providers Provider Date of admission: 06/15/24 14:56 Primary care physician: Physician No Primary/Family Admitting Provider: Lotus Cochran DO Attending Provider on Admission: Lotus Cochran DO Attending Provider on DC: Clint Felipe MD Discharging Provider: Clint Felipe MD DS: Diagnosis Problem List Completed Was Problem List Reviewed/Reconciled?: Yes Hospital Course Hospital Course Hospital course: Miss Roach a 69-year-old female with significant medical history of hypertension, hyperlipidemia, hypothyroidism, breast cancer in 2019 status post mastectomy of the left breast, metastasis to the left kidney status post nephrectomy and recurrence in the last year with masses found in the lungs presented to the ED after liver function tests were abnormal at the cancer clinic. Patient follows Dr. 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 Patient was started on immunotherapy recently; however, upon checking AST/ALT, medications were stopped as she had elevated liver enzymes. Patient was started on oral prednisone which was tapered off and the last dose was on 06/10/2024. Patient today (06/15) followed up with repeat labs which showed persistently elevated AST ALT; moreover, patient was given 125 mg IV methylprednisolone at Dr. Hurley's office and told to go to the ED for close monitoring. Recommendations were that the patient be admitted and be given IV Solu-Medrol, IV Protonix, IV fluids and AST/ALT/bilirubin trended. Patient was admitted for steroid therapy secondary to drug induced hepatitis from immunotherapy. Heme/onc Dr. Hurley was consulted and followed up with patient throughout her stay. Patient's IV steroid was switched to p.o. with slow taper. Patient's immunotherapy medications Exemestane and Ibandronate were withheld while in hospital. Liver enzymes started to downtrend, patient was deemed stable to be discharged home on tapering steroid dosages, bactrim and protonix for prophyllaxis secondary to group home glucocrticoid use. 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 Sammie Felipe, PGY-2 Status at Discharge Overall status at discharge: patient is progressing back to baseline Time Spent with Patient Time attestation: Total time spent providing and/or coordinating discharge services: Time spent: Greater than 30 minutes Exam Vital Signs Temp Pulse Resp BP Pulse Ox O2 Del Method 97.2 F 76 16 148/94 H 98 Room Air 06/18/24 12:00 06/18/24 12:00 06/18/24 12:00 06/18/24 12:00 06/18/24 12:06/18/24 12:00 Narrative Exam Physical Exam: GENERAL: Awake, answering questions appropriately, appears stated age. In a wheelchair. HEENT: NC/AT. Moist mucosa. PERRLA/EOMI. CARDIO: Heart RRR, no obvious murmurs, no JVD. Chemo-Port site noted on right midclavicular second intercostal area PULM: No coughing or visible SOB. Lungs CTA B/L. GI: Abdomen soft, NT/ND, +BS. SKIN/MSK/EXT: No wounds/discoloration/rashes/edema. +Pedal pulses present B/L. NEURO: Oriented x3, no focal neurologic deficits noted Discharge Plan Plan Patient Disposition: HOME (Self Care) Patient condition on transfer: Stable Care Plan Goals: Please follow up with heme/onco Dr. Hurley on Thursday06/20/24 Please hold off exemestane and ibandronate until you see Dr. Hurley and your PCP Please complete your course of prednisone as prescribed If you have symptoms of fever, chills or worsening symptoms please go to your nearest hospital / ED Prescriptions/Referrals Prescriptions/Med Rec: New pantoprazole 40 mg Tablet,Delayed Release (Dr/Ec) 40 mg PO QDAY 30 Days Qty: 30 0RF sulfamethoxazole-trimethoprim [Bactrim DS] 800-160 mg tablet 1 tab PO BID 14 Days Qty: 28 0RF prednisone 20 mg tablet See Taper PO QDAY Qty: 177 0RF Taper: Prednisone Taper 120 mg DAILY for 7 Days and 0 Hour 100 mg DAILY for 7 Days and 0 Hour 80 mg DAILY for 7 Days and 0 Hour 60 mg DAILY for 7 Days and 0 Hour 40 mg DAILY for 7 Days and 0 Hour 20 mg DAILY for 7 Days and 0 Hour Continued lisinopril 20 mg Tablet 20 mg PO QDAY lovastatin 20 mg Tablet 20 mg PO QPM Caltrate 600 plus D 600 mg (1,500 mg)-800 unit Tablet,Chewable 2 tab PO DAILY Myra-Maurice 0.8 mg Tablet 1 tab PO QDAY Held ibandronate 150 mg Tablet 150 mg PO QMONTH Hold Instructions: Resume on 07/02/24. Until you see Dr. Hurley exemestane 25 mg Tablet 25 mg PO DAILY Hold Instructions: Resume on 07/02/24. Until you see Dr. Hurley Referrals: No Primary/Family,Physician [Primary Care Provider] - Patient/Caregiver Discharge Instructions Other Discharge Activity Instructions:: Please follow up with heme/onco Dr. Hurley on Thursday06/20/24 Please hold off exemestane and ibandronate until you see Dr. Hurley and your PCP Please complete your course of prednisone as prescribed If you have symptoms of fever, chills or worsening symptoms please go to your nearest hospital / ED Print Language: Gambian Stand Alone Forms: Nandini Award Info., Patient Portal Info Letter Discharge Order Discharge Orders: Discharge (Routine); Ordered 06/18/24 Ordered By: Clint Felipe Quality Discharge Quality Measures VTE prophylaxis
== END 2024-06-18 12:45 | disposition home or self-care (01) | DRG 442 ==
LOC: SERX 14:49 → SERHOLD 15:07 → S3SX 19:44
PROVIDERS: Admitting Provider Internal Medicine; Emergency Provider Emergency Medicine; Visit Provider Internal Medicine
DX: K75.9 Inflammatory liver disease, unspecified (principal); C78.00 Secondary malignant neoplasm of unspecified lung; C79.02 Secondary malignant neoplasm of left kidney and renal pelvis; I10 Essential (primary) hypertension; E78.5 Hyperlipidemia, unspecified; E03.9 Hypothyroidism, unspecified; Z85.3 Personal history of malignant neoplasm of breast; Z90.12 Acquired absence of left breast and nipple; Z90.5 Acquired absence of kidney; T45.AX5A Adverse effect of immune checkpoint inhibitors and immunostimulant drugs, initial encounter; Z79.2 Long term (current) use of antibiotics; Z79.899 Other long term (current) drug therapy; K71.6 Toxic liver disease with hepatitis, not elsewhere classified; T50.905A Adverse effect of unspecified drugs, medicaments and biological substances, initial encounter
CPT/HCPCS: 36415; 76705; 80048; 80053; 80076; 83735; 84100; 85025; 85610; 85730; 93225; 96374; J1642; J1643; J2470; J2919; J3490; J7030; J7040; J7512; J7999; A9270

== ENCOUNTER → 2024-06-22 | Outpatient (CLI) | payer MEDICARE, MEDICAID, SELFPAY ==
--- NOTE | 2024-06-22 11:00 | XR_ITS ---
Examination: Transvaginal ultrasound of the pelvis, complete Technique: Transvaginal sonographic images pelvis performed using subramanian scale imaging Exam date and time: June 22, 2024 1110 hrs. Indications: 2 masses contiguous with the uterine fundus on CT examination June 06, 2024 Findings: Uterus 8.9 x 4.8 x 9.5 cm Right lateral uterine body mass vascular 4.4 x 4.2 cm Left lateral uterine body mass with calcifications 6.8 x 6.9 cm Ovaries obscured by bowel gas Endometrial stripe 0.1 cm Impression: Vascular uterine masses as above, differential would include malignant neoplasms of the uterus Recommend MRI pelvis follow-up pre and postcontrast.
--- NOTE | 2024-06-22 11:00 | XR_ITS ---
Examination: Pelvic ultrasound, transabdominal, complete Technique: Transabdominal ultrasound of the pelvis performed using grayscale imaging Date and time of exam: June 22, 2024 1057 hrs. Indications: Uterine mass on CT examination of the pelvis June 06, 2024, diagnosis invasive lobular carcinoma the left breast diagnosed 5 years ago, undergoing chemotherapy Findings: Uterus 10.2 cm endometrial stripe is obscured by uterine masses Right lateral uterine body mass 3.7 x 3.4 cm left lateral uterine body mass vascular 6.4 x 6.3 cm Right ovary 1.5 cm arterial flow Left ovary 2.0 cm arterial flow Impression: Uterine masses as above including large lateral uterine body vascular mass 6.4 x 6.0 x 6.3 cm, differential would include malignant neoplasm of the uterus Recommend MRI pelvis follow-up pre and postcontrast
== END | disposition home or self-care (01) ==
PROVIDERS: PCP Physician Assistant; Referring Provider Internal Medicine Hematology & Oncology; Visit Provider Internal Medicine Hematology & Oncology
DX: R19.09 Other intra-abdominal and pelvic swelling, mass and lump (principal); C50.412 Malignant neoplasm of upper-outer quadrant of left female breast; C64.2 Malignant neoplasm of left kidney, except renal pelvis; C78.02 Secondary malignant neoplasm of left lung
CPT/HCPCS: 76830; 76856

== ENCOUNTER 2024-07-21 12:58 | Outpatient (RCR) | payer MEDICARE, MEDICAID, SELFPAY ==
[2024-06-29 13:54] LABS: Basophils % (Auto) 0 % (0-2.5); Eosinophils # (Auto) 0.1 Thou/mm3 (0.0-0.5); Eosinophils % (Auto) 1 % (0-10); Hematocrit 41.9 % (36.0-46.0); Hemoglobin 14.1 g/dL (12.0-16.0); Immature Granulocytes % (Auto) 1 % (0-0); Immature Granulocytes Auto 0.19 Thou/mm3 (0.00-0.00); Lymphocytes # (Auto) 0.4 Thou/mm3 (1.0-4.8); Lymphocytes % (Auto) 3 % (10-50); Mean Corpuscular HGB Conc 33.7 g/dl (31.0-37.0); Mean Corpuscular Hemoglobin 28.3 pg (25.0-35.0); Mean Corpuscular Volume 84 fL (80-100); Monocytes # (Auto) 0.6 Thou/mm3 (0.0-0.8); Monocytes % (Auto) 5 % (0-12); Neutrophils # (Auto) 12.2 Thou/mm3 (1.8-7.7); Neutrophils % (Auto) 90 % (37-80); Nucleated Red Blood Cell % 0 /100 WBC (0); Platelet Count 165 Thou/mm3 (140-440); RDW Standard Deviation 54.6 fL (36.4-46.3); Red Blood Count 4.99 Miln/mm3 (4.00-5.20); White Blood Count 13.6 Thou/mm3 (3.6-11.0)
[2024-06-29 14:14] LABS: Alanine Aminotransferase 75 U/L (10-49); Albumin, Serum 3.8 gm/dL (3.4-4.8); Albumin/Globulin Ratio 2.4 (1.2-2.2); Alkaline Phosphatase 42 U/L (46-116); Anion Gap 8 (7-16); Aspartate Amino Transferase 27 U/L (0-34); BUN/Creatinine Ratio 20 Ratio (12-20); Bilirubin,Total 0.7 mg/dL (0.3-1.2); Blood Urea Nitrogen 32 mg/dL (9-23); Calcium (Corrected) 9.2 mg/dL (8.5-10.1); Carbon Dioxide 24.4 mMol/L (20.0-31.0); Chloride 106 mMol/L (98-107); Creatinine (Component) 1.6 mg/dL (0.6-1.3); Globulin 1.6 gm/dL (2.3-3.5); Glucose 100 mg/dL (74-106); Osmolality,Calculated 282 (275-295); Potassium 4.3 mMol/L (3.4-5.1); Sodium 138 mMol/L (136-145); Total Protein 5.4 gm/dL (5.7-8.2); eGFR 35 See Note
[2024-07-04 13:52] LABS: Basophils % (Auto) 0 % (0-2.5); Eosinophils % (Auto) 0 % (0-10); Hematocrit 41.2 % (36.0-46.0); Hemoglobin 13.7 g/dL (12.0-16.0); Immature Granulocytes % (Auto) 1 % (0-0); Immature Granulocytes Auto 0.12 Thou/mm3 (0.00-0.00); Lymphocytes # (Auto) 0.5 Thou/mm3 (1.0-4.8); Lymphocytes % (Auto) 5 % (10-50); Mean Corpuscular HGB Conc 33.3 g/dl (31.0-37.0); Mean Corpuscular Hemoglobin 28.2 pg (25.0-35.0); Mean Corpuscular Volume 85 fL (80-100); Monocytes # (Auto) 0.3 Thou/mm3 (0.0-0.8); Monocytes % (Auto) 2 % (0-12); Neutrophils # (Auto) 10.3 Thou/mm3 (1.8-7.7); Neutrophils % (Auto) 92 % (37-80); Nucleated Red Blood Cell % 0 /100 WBC (0); Platelet Count 161 Thou/mm3 (140-440); RDW Standard Deviation 56.4 fL (36.4-46.3); Red Blood Count 4.86 Miln/mm3 (4.00-5.20); White Blood Count 11.2 Thou/mm3 (3.6-11.0)
[2024-07-04 14:29] LABS: Alanine Aminotransferase 76 U/L (10-49); Albumin, Serum 3.5 gm/dL (3.4-4.8); Albumin/Globulin Ratio 1.9 (1.2-2.2); Alkaline Phosphatase 45 U/L (46-116); Anion Gap 8 (7-16); Aspartate Amino Transferase 24 U/L (0-34); BUN/Creatinine Ratio 22 Ratio (12-20); Bilirubin,Total 0.8 mg/dL (0.3-1.2); Blood Urea Nitrogen 33 mg/dL (9-23); Calcium 8.7 mg/dL (8.3-10.6); Calcium (Corrected) 9.1 mg/dL (8.5-10.1); Carbon Dioxide 23.6 mMol/L (20.0-31.0); Chloride 102 mMol/L (98-107); Creatinine (Component) 1.5 mg/dL (0.6-1.3); Free T4 (Free Thyroxine) 1.38 ng/dL (0.89-1.76); Globulin 1.8 gm/dL (2.3-3.5); Glucose 157 mg/dL (74-106); Osmolality,Calculated 278 (275-295); Potassium 4.1 mMol/L (3.4-5.1); Sodium 134 mMol/L (136-145); Thyroid Stimulating Hormone 1.52 uIU/mL (0.55-4.78); Total Protein 5.3 gm/dL (5.7-8.2); eGFR 37 See Note
[2024-07-07 13:55] LABS: Alanine Aminotransferase 67 U/L (10-49); Albumin, Serum 3.7 gm/dL (3.4-4.8); Albumin/Globulin Ratio 2.1 (1.2-2.2); Alkaline Phosphatase 44 U/L (46-116); Anion Gap 9 (7-16); Aspartate Amino Transferase 28 U/L (0-34); BUN/Creatinine Ratio 28 Ratio (12-20); Bilirubin,Total 0.9 mg/dL (0.3-1.2); Blood Urea Nitrogen 34 mg/dL (9-23); Calcium 9.2 mg/dL (8.3-10.6); Calcium (Corrected) 9.4 mg/dL (8.5-10.1); Carbon Dioxide 26.1 mMol/L (20.0-31.0); Chloride 105 mMol/L (98-107); Creatinine (Component) 1.2 mg/dL (0.6-1.3); Globulin 1.8 gm/dL (2.3-3.5); Glucose 121 mg/dL (74-106); Osmolality,Calculated 288 (275-295); Sodium 140 mMol/L (136-145); Total Protein 5.5 gm/dL (5.7-8.2); eGFR 49 See Note
[2024-07-11 13:56] LABS: Basophils % (Auto) 0 % (0-2.5); Eosinophils % (Auto) 0 % (0-10); Hematocrit 42.1 % (36.0-46.0); Hemoglobin 13.8 g/dL (12.0-16.0); Immature Granulocytes % (Auto) 1 % (0-0); Immature Granulocytes Auto 0.11 Thou/mm3 (0.00-0.00); Lymphocytes # (Auto) 0.4 Thou/mm3 (1.0-4.8); Lymphocytes % (Auto) 4 % (10-50); Mean Corpuscular HGB Conc 32.8 g/dl (31.0-37.0); Mean Corpuscular Hemoglobin 28.3 pg (25.0-35.0); Mean Corpuscular Volume 86 fL (80-100); Monocytes # (Auto) 0.3 Thou/mm3 (0.0-0.8); Monocytes % (Auto) 3 % (0-12); Neutrophils # (Auto) 8.9 Thou/mm3 (1.8-7.7); Neutrophils % (Auto) 92 % (37-80); Nucleated Red Blood Cell % 0 /100 WBC (0); Platelet Count 175 Thou/mm3 (140-440); RDW Standard Deviation 56.7 fL (36.4-46.3); Red Blood Count 4.87 Miln/mm3 (4.00-5.20); White Blood Count 9.7 Thou/mm3 (3.6-11.0)
[2024-07-11 14:20] LABS: Alanine Aminotransferase 53 U/L (10-49); Albumin, Serum 3.7 gm/dL (3.4-4.8); Albumin/Globulin Ratio 1.9 (1.2-2.2); Alkaline Phosphatase 43 U/L (46-116); Anion Gap 10 (7-16); Aspartate Amino Transferase 22 U/L (0-34); BUN/Creatinine Ratio 21 Ratio (12-20); Bilirubin,Total 1.3 mg/dL (0.3-1.2); Blood Urea Nitrogen 27 mg/dL (9-23); Calcium 8.8 mg/dL (8.3-10.6); Carbon Dioxide 26.6 mMol/L (20.0-31.0); Chloride 100 mMol/L (98-107); Creatinine (Component) 1.3 mg/dL (0.6-1.3); Globulin 1.9 gm/dL (2.3-3.5); Glucose 149 mg/dL (74-106); Osmolality,Calculated 281 (275-295); Potassium 3.8 mMol/L (3.4-5.1); Sodium 137 mMol/L (136-145); Total Protein 5.6 gm/dL (5.7-8.2); eGFR 45 See Note
[2024-07-14 14:38] LABS: Alanine Aminotransferase 40 U/L (10-49); Albumin, Serum 3.8 gm/dL (3.4-4.8); Albumin/Globulin Ratio 2.2 (1.2-2.2); Alkaline Phosphatase 44 U/L (46-116); Anion Gap 11 (7-16); Aspartate Amino Transferase 11 U/L (0-34); BUN/Creatinine Ratio 27 Ratio (12-20); Bilirubin,Total 1.1 mg/dL (0.3-1.2); Blood Urea Nitrogen 32 mg/dL (9-23); Calcium 8.9 mg/dL (8.3-10.6); Calcium (Corrected) 9.1 mg/dL (8.5-10.1); Carbon Dioxide 27.4 mMol/L (20.0-31.0); Chloride 99 mMol/L (98-107); Creatinine (Component) 1.2 mg/dL (0.6-1.3); Globulin 1.7 gm/dL (2.3-3.5); Glucose 188 mg/dL (74-106); Osmolality,Calculated 285 (275-295); Potassium 3.5 mMol/L (3.4-5.1); Sodium 137 mMol/L (136-145); Total Protein 5.5 gm/dL (5.7-8.2); eGFR 49 See Note
[2024-07-18 15:00] LABS: Basophils % (Auto) 0 % (0-2.5); Eosinophils % (Auto) 0 % (0-10); Hematocrit 40.9 % (36.0-46.0); Hemoglobin 13.5 g/dL (12.0-16.0); Immature Granulocytes % (Auto) 3 % (0-0); Immature Granulocytes Auto 0.22 Thou/mm3 (0.00-0.00); Lymphocytes # (Auto) 0.6 Thou/mm3 (1.0-4.8); Lymphocytes % (Auto) 7 % (10-50); Mean Corpuscular Hemoglobin 28.5 pg (25.0-35.0); Mean Corpuscular Volume 87 fL (80-100); Monocytes # (Auto) 0.5 Thou/mm3 (0.0-0.8); Monocytes % (Auto) 6 % (0-12); Neutrophils % (Auto) 84 % (37-80); Nucleated Red Blood Cell % 0 /100 WBC (0); Platelet Count 169 Thou/mm3 (140-440); RDW Standard Deviation 57.1 fL (36.4-46.3); Red Blood Count 4.73 Miln/mm3 (4.00-5.20); White Blood Count 8.4 Thou/mm3 (3.6-11.0)
[2024-07-18 15:19] LABS: Alanine Aminotransferase 33 U/L (10-49); Albumin, Serum 3.7 gm/dL (3.4-4.8); Albumin/Globulin Ratio 1.9 (1.2-2.2); Alkaline Phosphatase 48 U/L (46-116); Anion Gap 10 (7-16); Aspartate Amino Transferase 22 U/L (0-34); BUN/Creatinine Ratio 29 Ratio (12-20); Bilirubin,Total 0.8 mg/dL (0.3-1.2); Blood Urea Nitrogen 32 mg/dL (9-23); Calcium 9.6 mg/dL (8.3-10.6); Calcium (Corrected) 9.8 mg/dL (8.5-10.1); Carbon Dioxide 27.5 mMol/L (20.0-31.0); Chloride 101 mMol/L (98-107); Creatinine (Component) 1.1 mg/dL (0.6-1.3); Globulin 1.9 gm/dL (2.3-3.5); Glucose 143 mg/dL (74-106); Osmolality,Calculated 284 (275-295); Potassium 3.8 mMol/L (3.4-5.1); Sodium 138 mMol/L (136-145); Total Protein 5.6 gm/dL (5.7-8.2); eGFR 54 See Note
[2024-07-21 14:56] LABS: Basophils % (Auto) 0 % (0-2.5); Eosinophils % (Auto) 0 % (0-10); Hemoglobin 13.4 g/dL (12.0-16.0); Immature Granulocytes % (Auto) 5 % (0-0); Immature Granulocytes Auto 0.41 Thou/mm3 (0.00-0.00); Lymphocytes # (Auto) 0.6 Thou/mm3 (1.0-4.8); Lymphocytes % (Auto) 7 % (10-50); Mean Corpuscular HGB Conc 33.5 g/dl (31.0-37.0); Mean Corpuscular Hemoglobin 28.6 pg (25.0-35.0); Mean Corpuscular Volume 86 fL (80-100); Monocytes # (Auto) 0.4 Thou/mm3 (0.0-0.8); Monocytes % (Auto) 4 % (0-12); Neutrophils # (Auto) 7.5 Thou/mm3 (1.8-7.7); Neutrophils % (Auto) 84 % (37-80); Nucleated Red Blood Cell # 0.02 Thou/mm3 (0.00-0.00); Nucleated Red Blood Cell % 0 /100 WBC (0); Platelet Count 158 Thou/mm3 (140-440); RDW Standard Deviation 56.3 fL (36.4-46.3); Red Blood Count 4.68 Miln/mm3 (4.00-5.20); White Blood Count 8.9 Thou/mm3 (3.6-11.0)
[2024-07-21 15:46] LABS: Anion Gap 10 (7-16); BUN/Creatinine Ratio 25 Ratio (12-20); Blood Urea Nitrogen 27 mg/dL (9-23); Carbon Dioxide 27.2 mMol/L (20.0-31.0); Chloride 101 mMol/L (98-107); Creatinine (Component) 1.1 mg/dL (0.6-1.3); Glucose 116 mg/dL (74-106); Osmolality,Calculated 281 (275-295); Potassium 3.8 mMol/L (3.4-5.1); Sodium 138 mMol/L (136-145); eGFR 54 See Note
[2024-07-21 15:47] LABS: Alanine Aminotransferase 33 U/L (10-49); Albumin, Serum 3.7 gm/dL (3.4-4.8); Albumin/Globulin Ratio 1.9 (1.2-2.2); Alkaline Phosphatase 50 U/L (46-116); Aspartate Amino Transferase 25 U/L (0-34); Bilirubin,Total 0.9 mg/dL (0.3-1.2); Calcium 8.8 mg/dL (8.3-10.6); Globulin 1.9 gm/dL (2.3-3.5); Total Protein 5.6 gm/dL (5.7-8.2)
[2024-07-21 15:49] LABS: CA 15-3 20.5 U/mL (<32.4)
--- NOTE | 2024-08-01 01:28 | CTCFLWUP_ITS ---
Patient: LENARD WINTERS : 1955 Page 6 of 9 FOLLOW UP NOTE DATE OF SERVICE: 07/20/2024 NAME: LENARD WINTERS ACCOUNT: [id number] : 1955 AGE: 69 INTERVAL HISTORY: Patient is on treatment for her renal cancer. Patient was on axitinib and Keytruda. Patient developed hepatitis on immunotherapy. Immunotherapy was held and was treated with prednisone. Patient's LFTs down trended. Prednisone was stopped on 06/11/2024 and her labs after stopping the steroids have worsened. Patient was admitted in the hospital and was started on steroids. Now she is doing better and here for follow-up Patient was advised to start axitinib at the last visit. ONCOLOGY HISTORY:?[facility] Hx? DIAGNOSIS: Malignant neoplasm of upper-outer quadrant of left female breast [ICD10] C50.412; Malignant neoplasm of left kidney, except renal pelvis [ICD10] C64.2 #1 lung lesions likely metastatic disease from breast cancer or renal cancer #2 history of stage IIIc, (PT2N3A) ER positive, [place] positive, HER-2/sofiya negative 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 Status post modified radical mastectomy (06/20/2019). S/p 4 cycles of TC chemotherapy. 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 pT2, PN X. DATE OF DIAGNOSIS: 02/04/2024 STAGE/TNM: M1 metastatic clear-cell renal cell cancer on axitinib and Keytruda Also history of stage III ER/TX positive HER2 negative invasive lobular left breast cancer s/p mastectomy chemotherapy and on exemestane TREATMENT HISTORY: Care?Plan Start?Date Cycle Day Intent DOCEtaxel?75,?Cyclophosphamide?600?-?Adj 07/28/2019 21 Curative?(adjuvant) Axitinib?and?Pembrolizumab 03/02/2024 1 21 Palliative HISTORY OF PRESENT ILLNESS: Lenard Winters is a 69-year-old woman who have a history of breast cancer and renal cancer. Patient was initially diagnosed with the breast cancer as below ? 12/13/2018: Patient had bilateral screening mammograms which caused the suspicion for left-sided breast cancer. 03/31/2019: Patient saw radiation oncologist Dr. Aaron Reyes here at the cancer center. 04/07/2019: Patient saw Dr. Camden Ely who is planning on doing surgery near future. 05/18/2019: Patient had a left breast lumpectomy and sentinel lymph node biopsy. 05/26/2019: MRI of the breast. Left breast showed findings consistent with postsurgical seroma in the left breast as well as in left axilla. Right breast MRI was reportedly negative. 06/10/2019: DEXA scan?There is osteopenia based on lumbar spine measurements. There is osteopenia based on hip measurements Lumbar mineralization is increased 4.9% compared with June 13, 2014. Hip mineralization is increased 3.2% compared with June 13, 2014 06/20/2019: Left breast modified radical mastectomy? 07/08/2019: PET CT scan?Postsurgical changes left breast No mediastinal, axillary adenopathy. No pulmonary nodules 7 cm left renal mass worrisome for renal cell carcinoma. Recommend MRI abdomen/kidneys follow-up, pre and postcontrast. Non hypermetabolic 9 mm focal sclerosis left sacral wing Consider whole-body bone scan follow-up 07/28/2019? 09/29/2019: Patient had 4 cycles of TC chemotherapy in the adjuvant setting. 11/15/2019: Left nephrectomy. 12/07/2019?03/20/2020: Patient took anastrozole 1 mg p.o. daily in the adjuvant setting. Anastrozole discontinued due to body aches. 12/14/2019?02/08/2020: Patient received 5040 cGy radiation therapy to the left chest wall. 02/27/2020: CT scan of the abdomen and pelvis with and without contrast? 03/20/2020: Anastrozole discontinued due to body aches. Patient was started on Aromasin 25 mg p.o. daily. 06/08/2020: Esophagogastroduodenoscopy with biopsy? 07/04/2020: Patient had colonoscopy done by Dr. Gore. 08/27/2020: CT scan of the abdomen/pelvis with and without contrast? 03/13/2021: Right breast mammogram: BI-RADS Category 1: Negative findings. 03/07/2022: Bone density test? At the last visit patient was noted to have lung nodules which were biopsied. 02/04/[address]-guided needle biopsy shows metastatic clear-cell renal cell cancer. OTHER MEDICAL HISTORY/CONDITIONS: FAMILY HISTORY: ?[facility] Hx? 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 Bactrim DS - 800-160 mg 1 tab Twice a Day 2. Caltrate 600 - 600 mg Twice a Day 3. Inlyta - 1 mg 1 tab Twice a Day 4. levothyroxine - 50 mcg 1 tab Daily 5. lisinopril - 20 mg 1 tab Daily 6. losartan - 50 mg 1 tab Daily 7. losartan-hydrochlorothiazide - 50-12.5 mg 1 tab Daily 8. lovastatin - 20 mg As directed 9. pantoprazole - 40 mg 2 Daily 10. prednisone - 20 mg tab As directed 11. Renal-Maurice - 0.8 mg 1 tab Daily 12. Sancuso - 3.1 mg/24 hour 1 Patch Weekly?Palabra Meds? Medications Last Reconciled by Nancy Canada MA on 07/20/2024 ALLERGIES: No Known Drug Allergies REVIEW OF SYSTEMS: A complete 14-point review of systems was performed and is negative except as noted in interval history. PHYSICAL EXAMINATION:?[facility] PE? VITAL SIGNS: Temperature?98.2, B/P?126/86, Oxygen?Saturation?97% Weight?149.8?lbs (Change?since?07/18/24:?-0.4?lbs) PAIN: 0 - No pain Conjunctive is white neck is supple. No adenopathy in the neck axilla or in the inguinal region. Chest clear to auscultation. No wheezes or rails audible. CVS rhythm regular. Abdomen is soft. Extremities no clubbing or cyanosis noted. LABORATORY DATA: I have personally reviewed and interpreted each of the patient?s relevant lab tests, abnormal findings are below: Date 07/18/24 07/21/24 ??WHITE?BLOOD?COUNT?(Thou/mm3) 8.4 8.9 ??RED?BLOOD?COUNT?(Miln/mm3) 4.73 4.68 ??HEMOGLOBIN?(gm/dl) 13.5 13.4 ??HEMATOCRIT?(%) 40.9 40.0 ??PLATELET?COUNT?(Thou/mm3) 169 158 ??NEUTROPHILS?%,?AUTO?(%) 84?H 84?H ??LYMPH?%,?AUTO?(%) 7?L 7?L ??NEUTROPHILS,?AUTO?(Thou/mm3) 7.0 7.5 ??GLUCOSE,RANDOM?(mg/dL) 143?H 116?H ??BLOOD?UREA?NITROGEN?(mg/dL) 32?H 27?H ??CREATININE?(mg/dL) 1.10 1.10 ??SODIUM?(mmol/L) 138 138 ??POTASSIUM?(mmol/L) 3.8 3.8 ??CHLORIDE?(mmol/L) 101 101 ??CrCl?(CandG)?(ml/min) 51.91 51.08 ??AST/SGOT?(Unit/L) 22 25 ??ALT/SGPT?(Unit/L) 33 33 ??ALKALINE?PHOSPHATASE?(Unit/L) 48 50 ??BILIRUBIN,?TOTAL?(mg/dL) 0.8 0.9 ??PROTEIN?TOTAL?(gm/dl) 5.6?L 5.6?L ??ALBUMIN,?SERUM?(gm/dl) 3.7 3.7 ??GLOBULIN?(gm/dl) 1.9?L 1.9?L ??ALBUMIN/GLOBULIN?RATIO 1.9 1.9 ??CALCIUM,?SERUM?(mg/dL) 9.6 8.8 ??CALCIUM?SERUM?(CORRECTED)?(mg/dL) 9.8 9.0 ASSESSMENT/PLAN:?Jaime Macias Assessment/Plan? #1 immune related hepatitis Patient developed worsening transaminitis Since starting steroids LFTs have been downtrending I will continue to monitor the LFTs twice weekly IV fluids Prednisone taper continued Once LFTs are normalized then we can reduce prednisone dose but will continue the steroids for Patient for at least 6 weeks Continue Protonix No further immunotherapy #2 metastatic renal cancer Diagnosed on biopsy from the lung Patient getting treatment through a port catheter Patient has been on Keytruda and axitinib Rapidly growing tumor CT scan reviewed and shows great response Unfortunately treatment need to be held now Will resume axitinib once LFTs normalize NGS panel showed 8 mutation burden and microsatellite stable. VHL mutation and therapies with clinical relevance is belzutifan and category 2A recommendation I will follow-up on the CT scan and brain MRI to see response to treatment MRI Brain MRI with and without contrast CT scan with and without contrast shows treatment response to treatment CBC CMP TSH T4 Started on levothyroxine 50 mcg CBC CMP TSH ORDERS: Order # Description [id number] CBC + Comprehensive Metabolic Panel [id number] Lab Appointment [id number] Follow Up Appointment [id number] CBC + Comprehensive Metabolic Panel [id number] Lab Appointment [id number] Follow Up Appointment [id number] CBC + Comprehensive Metabolic Panel [id number] Lab Appointment [id number] Follow Up Appointment [id number] CBC + Comprehensive Metabolic Panel [id number] Lab Appointment [id number] Follow Up Appointment [id number] CBC + Comprehensive Metabolic Panel [id number] Lab Appointment [id number] Follow Up Appointment [id number] CBC + Comprehensive Metabolic Panel [id number] Lab Appointment [id number] Follow Up Appointment [id number] CBC + Comprehensive Metabolic Panel [id number] Lab Appointment [id number] Follow Up Appointment [id number] CBC + Comprehensive Metabolic Panel [id number] Lab Appointment [id number] Follow Up Appointment Continue axitinib RETURN TO CLINIC: 4 weeks BILLING AND COMPLIANCE: I reviewed external records from providers outside my specialty as summarized above. I spent a total of 50 minutes on this patient?s care on the day of their visit excluding time spent related to any billed procedures. This time includes time spent with the patient as well as time spent documenting in the medical record, reviewing patients records and tests, obtaining history, placing orders, communicating with other healthcare professionals, counseling the patient, family or caregiver, and/or care coordination for the diagnoses above. Electronically Signed by: Baudilio Macias MD T: 1:26 AM CC: PCP: Mateus Reis Referring: Mateus Reis This document was completed utilizing speech recognition software. Grammatical errors, random word insertions, pronoun errors, and incomplete sentences are an occasional consequence of this system due to software limitations, ambient noise, and hardware issues. Any formal questions or concerns about the content, text or information contained within the body of this dictation should be directly addressed to the provider for clarification.
== END 2024-07-25 23:59 | disposition home or self-care (01) ==
LOC: SCTC 12:58
PROVIDERS: PCP Physician Assistant; Referring Provider Physician Assistant; Visit Provider Internal Medicine Hematology & Oncology
DX: C64.2 Malignant neoplasm of left kidney, except renal pelvis (principal); C50.412 Malignant neoplasm of upper-outer quadrant of left female breast; Z90.12 Acquired absence of left breast and nipple; Z17.0 Estrogen receptor positive status [ER+]; Z17.21 Progesterone receptor positive status; Z17.32 Human epidermal growth factor receptor 2 negative status; K75.9 Inflammatory liver disease, unspecified; R91.1 Solitary pulmonary nodule; Z79.811 Long term (current) use of aromatase inhibitors; Z90.5 Acquired absence of kidney; R74.01 Elevation of levels of liver transaminase levels
CPT/HCPCS: 36591; 80053; 84439; 84443; 85025; 86300; 96360; 99213; A4216; J1642; J7030; J7050; J9271; G0463

== ENCOUNTER 2024-08-23 13:27 | Outpatient (RCR) | payer MEDICARE, MEDICAID, SELFPAY ==
[2024-08-02 10:51] LABS: Basophils % (Auto) 1 % (0-2.5); Eosinophils % (Auto) 1 % (0-10); Hematocrit 41.7 % (36.0-46.0); Immature Granulocytes % (Auto) 2 % (0-0); Immature Granulocytes Auto 0.07 Thou/mm3 (0.00-0.00); Lymphocytes % (Auto) 22 % (10-50); Mean Corpuscular HGB Conc 33.6 g/dl (31.0-37.0); Mean Corpuscular Hemoglobin 28.9 pg (25.0-35.0); Mean Corpuscular Volume 86 fL (80-100); Monocytes # (Auto) 0.4 Thou/mm3 (0.0-0.8); Monocytes % (Auto) 9 % (0-12); Neutrophils # (Auto) 2.9 Thou/mm3 (1.8-7.7); Neutrophils % (Auto) 67 % (37-80); Nucleated Red Blood Cell % 0 /100 WBC (0); Platelet Count 138 Thou/mm3 (140-440); RDW Standard Deviation 54.4 fL (36.4-46.3); Red Blood Count 4.84 Miln/mm3 (4.00-5.20); White Blood Count 4.4 Thou/mm3 (3.6-11.0)
[2024-08-02 11:07] LABS: Alanine Aminotransferase 58 U/L (10-49); Albumin, Serum 3.6 gm/dL (3.4-4.8); Albumin/Globulin Ratio 1.8 (1.2-2.2); Alkaline Phosphatase 48 U/L (46-116); Anion Gap 8 (7-16); Aspartate Amino Transferase 36 U/L (0-34); BUN/Creatinine Ratio 19 Ratio (12-20); Bilirubin,Total 1.4 mg/dL (0.3-1.2); Blood Urea Nitrogen 19 mg/dL (9-23); Calcium 8.8 mg/dL (8.3-10.6); Calcium (Corrected) 9.1 mg/dL (8.5-10.1); Carbon Dioxide 28.5 mMol/L (20.0-31.0); Chloride 104 mMol/L (98-107); Free T4 (Free Thyroxine) 1.92 ng/dL (0.89-1.76); Glucose 81 mg/dL (74-106); Osmolality,Calculated 280 (275-295); Potassium 3.3 mMol/L (3.4-5.1); Sodium 140 mMol/L (136-145); Thyroid Stimulating Hormone 1.88 uIU/mL (0.55-4.78); Total Protein 5.6 gm/dL (5.7-8.2); eGFR > 60 See Note
--- NOTE | 2024-08-04 13:48 | CTCFLWUP_ITS ---
Patient: LENARD WINTERS : 1955 Page 2 of 2 FOLLOW UP NOTE DATE OF SERVICE: 08/04/2024 NAME: LENARD WINTERS ACCOUNT: [id number] : 1955 AGE: 69 INTERVAL HISTORY: Chief Complaint Elevated liver enzymes, follow-up on Inlyta medication History of Present Illness The patient is being seen for follow-up of their cancer treatment, currently taking Inlyta. They were previously on a reduced dose of one tablet daily due to concurrent immunotherapy, which has now been discontinued. The clinician plans to increase the dose to two tablets per day. The patient's liver enzymes are noted to be increasing again. They stopped taking prednisone last Thursday. Due to the rising liver enzymes, the clinician is recommending restarting prednisone at 10 mg daily and temporarily discontinuing Inlyta. The patient is advised to undergo more frequent blood sravani ws to monitor their liver function. The patient reports taking a blood pressure medication in addition to their cancer treatment. They are unsure if they have completed Netera testing. The clinician emphasizes the importance of watching their diet to avoid weight gain while on prednisone. The plan is to continue prednisone at 10 mg daily and reassess liver function with blood work scheduled for the following day. If liver enzymes normalize, the plan is to maintain prednisone and resume Inlyta treatment. Medical History - Liver enzyme elevation - Hypertension, controlled with medication Medications and Supplements - Inlyta - One tablet daily. - Dose was previously lowered due to therapy. - Prednisone 10 mg - Last taken on Thursday. - Used for managing liver enzyme levels. - Blood pressure medicine Social History - Diet: Patient advised to watch diet and avoid weight gain ONCOLOGY HISTORY: DIAGNOSIS: Malignant neoplasm of upper-outer quadrant of left female breast [ICD10] C50.412; Malignant neoplasm of left kidney, except renal pelvis [ICD10] C64.2 #1 lung lesions likely metastatic disease from breast cancer or renal cancer #2 history of stage IIIc, (PT2N3A) ER positive, [place] positive, HER-2/sofiya negative 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 Status post modified radical mastectomy (06/20/2019). S/p 4 cycles of TC chemotherapy. 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 pT2, PN X. DATE OF DIAGNOSIS: 02/04/2024 STAGE/TNM: M1 metastatic clear-cell renal cell cancer on axitinib and Keytruda Also history of stage III ER/IL positive HER2 negative invasive lobular left breast cancer s/p mastectomy chemotherapy and on exemestane TREATMENT HISTORY: Care?Plan Start?Date Cycle Day Intent DOCEtaxel?75,?Cyclophosphamide?600?-?Adj 07/28/2019 1 21 Curative?(adjuvant) Axitinib?and?Pembrolizumab 03/02/2024 1 21 Palliative HISTORY OF PRESENT ILLNESS: Lenard Winters is a 69-year-old woman who have a history of breast cancer and renal cancer. Patient was initially diagnosed with the breast cancer as below ? 12/13/2018: Patient had bilateral screening mammograms which caused the suspicion for left-sided breast cancer. 03/31/2019: Patient saw radiation oncologist Dr. Aaron Reyes here at the [facility]. 04/07/2019: Patient saw Dr. Camden Ely who is planning on doing surgery near future. 05/18/2019: Patient had a left breast lumpectomy and sentinel lymph node biopsy. 05/26/2019: MRI of the breast. Left breast showed findings consistent with postsurgical seroma in the left breast as well as in left axilla. Right breast MRI was reportedly negative. 06/10/2019: DEXA scan?There is osteopenia based on lumbar spine measurements. There is osteopenia based on hip measurements Lumbar mineralization is increased 4.9% compared with June 13, 2014. Hip mineralization is increased 3.2% compared with June 13, 2014 06/20/2019: Left breast modified radical mastectomy? 07/08/2019: PET CT scan?Postsurgical changes left breast No mediastinal, axillary adenopathy. No pulmonary nodules 7 cm left renal mass worrisome for renal cell carcinoma. Recommend MRI abdomen/kidneys follow-up, pre and postcontrast. Non hypermetabolic 9 mm focal sclerosis left sacral wing Consider whole-body bone scan follow-up 07/28/2019? 09/29/2019: Patient had 4 cycles of TC chemotherapy in the adjuvant setting. 11/15/2019: Left nephrectomy. 12/07/2019?03/20/2020: Patient took anastrozole 1 mg p.o. daily in the adjuvant setting. Anastrozole discontinued due to body aches. 12/14/2019?02/08/2020: Patient received 5040 cGy radiation therapy to the left chest wall. 02/27/2020: CT scan of the abdomen and pelvis with and without contrast? 03/20/2020: Anastrozole discontinued due to body aches. Patient was started on Aromasin 25 mg p.o. daily. 06/08/2020: Esophagogastroduodenoscopy with biopsy? 07/04/2020: Patient had colonoscopy done by Dr. Gore. 08/27/2020: CT scan of the abdomen/pelvis with and without contrast? 03/13/2021: Right breast mammogram: BI-RADS Category 1: Negative findings. 03/07/2022: Bone density test? At the last visit patient was noted to have lung nodules which were biopsied. 02/04/[address]-guided needle biopsy shows metastatic clear-cell renal cell cancer. 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 Inlyta - 1 mg 1 tab Twice a Day 2. levothyroxine - 50 mcg 1 tab Daily 3. losartan-hydrochlorothiazide - 50-12.5 mg 1 tab Daily 4. prednisone - 10 mg 1 tab Daily 5. Renal-Maurice - 0.8 mg 1 tab Daily Medications Last Reconciled by Nancy Canada MA on 08/04/2024 ALLERGIES: No Known Drug Allergies REVIEW OF SYSTEMS: A complete 14-point review of systems was performed and is negative except as noted in interval history. PHYSICAL EXAMINATION: VITAL SIGNS: Temperature?97.8, B/P?125/86, Oxygen?Saturation?98% Weight?146.4?lbs (Change?since?08/02/24:?0.2?lbs) PAIN: 2 - Mild pain Conjunctive is white neck is supple. No adenopathy in the neck axilla or in the inguinal region. Chest clear to auscultation. No wheezes or rails audible. CVS rhythm regular. Abdomen is soft. Extremities no clubbing or cyanosis noted. LABORATORY DATA: I have personally reviewed and interpreted each of the patient?s relevant lab tests, abnormal findings are below: Date 07/21/24 08/02/24 ??WHITE?BLOOD?COUNT?(Thou/mm3) 8.9 4.4 ??RED?BLOOD?COUNT?(Miln/mm3) 4.68 4.84 ??HEMOGLOBIN?(gm/dl) 13.4 14.0 ??HEMATOCRIT?(%) 40.0 41.7 ??PLATELET?COUNT?(Thou/mm3) 158 138?L ??NEUTROPHILS?%,?AUTO?(%) 84?H 67 ??LYMPH?%,?AUTO?(%) 7?L 22 ??NEUTROPHILS,?AUTO?(Thou/mm3) 7.5 2.9 ??GLUCOSE,RANDOM?(mg/dL) 116?H 81 ??BLOOD?UREA?NITROGEN?(mg/dL) 27?H 19 ??CREATININE?(mg/dL) 1.10 1.00 ??SODIUM?(mmol/L) 138 140 ??POTASSIUM?(mmol/L) 3.8 3.3?L ??CHLORIDE?(mmol/L) 101 104 ??CrCl?(CandG)?(ml/min) 51.08 55.59 ??AST/SGOT?(Unit/L) 25 36?H ??ALT/SGPT?(Unit/L) 33 58?H ??ALKALINE?PHOSPHATASE?(Unit/L) 50 48 ??BILIRUBIN,?TOTAL?(mg/dL) 0.9 1.4?H ??PROTEIN?TOTAL?(gm/dl) 5.6?L 5.6?L ??ALBUMIN,?SERUM?(gm/dl) 3.7 3.6 ??GLOBULIN?(gm/dl) 1.9?L 2.0?L ??ALBUMIN/GLOBULIN?RATIO 1.9 1.8 ??CALCIUM,?SERUM?(mg/dL) 8.8 8.8 ??CALCIUM?SERUM?(CORRECTED)?(mg/dL) 9.0 9.1 ASSESSMENT/PLAN: #1 immune related hepatitis Patient with liver enzyme elevation and on Inlyta therapy for an unspecified condition, presenting for medication management and liver function monitoring. Elevated liver enzymes Assessment: Patient's liver enzymes are increasing again after previous elevation. This appears to be a recurrent issue, possibly related to Inlyta therapy. The patient had been on prednisone previously, with the last dose taken on Thursday. The elevation of liver enzymes in the context of Inlyta therapy suggests potential drug-induced liver injury. Plan: - Discontinue Inlyta immediately - Start prednisone 10 mg daily - Obtain frequent blood draws to monitor liver enzymes - Repeat blood work tomorrow - Monitor liver enzyme trends after starting prednisone - Resume Inlyta only if liver enzymes return to normal - Advise patient to watch diet and avoid weight gain - Follow up after blood work results are available Medication management - Inlyta Assessment: Patient is currently taking Inlyta one tablet daily. The plan was to increase to one tablet twice daily, which is the standard dosing when not combined with immunotherapy. However, due to the liver enzyme elevation, this dose increase is now on hold. Plan: - Hold Inlyta due to elevated liver enzymes - Do not take Inlyta today if not already taken - Reassess Inlyta dosing after liver enzymes normalize Hypertension Assessment: Patient reports taking a blood pressure medication, indicating a history of hypertension. No specific concerns or changes were discussed regarding this condition. Plan: - Continue current blood pressure medication (specific medication not mentioned) #2 metastatic renal cancer Diagnosed on biopsy from the lung Patient was on Keytruda and axitinib rapidly growing tumor CT scan reviewed and shows great response Unfortunately treatment need to be held now Refer Ms. Winters to tertiary level care Continue prednisone resume Inlyta once enzymes normalize CBC CMP TSH ORDERS: Order # Description [id number] Comprehensive Metabolic Panel - 12 + CBC with Auto Diff [id number] RETURN TO CLINIC: Tomorrow BILLING AND COMPLIANCE: I reviewed external records from providers outside my specialty as summarized above. I spent a total of 50 minutes on this patient?s care on the day of their visit excluding time spent related to any billed procedures. This time includes time spent with the patient as well as time spent documenting in the medical record, reviewing patients records and tests, obtaining history, placing orders, communicating with other healthcare professionals, counseling the patient, family or caregiver, and/or care coordination for the diagnoses above. Electronically Signed by: Baudilio Macias MD T: 1:45 PM CC: PCP: Mateus Reis Referring: Mateus Reis This document was completed utilizing speech recognition software. Grammatical errors, random word insertions, pronoun errors, and incomplete sentences are an occasional consequence of this system due to software limitations, ambient noise, and hardware issues. Any formal questions or concerns about the content, text or information contained within the body of this dictation should be directly addressed to the provider for clarification.
[2024-08-05 11:12] LABS: Basophils % (Auto) 1 % (0-2.5); Eosinophils % (Auto) 0 % (0-10); Hematocrit 41.5 % (36.0-46.0); Hemoglobin 14.1 g/dL (12.0-16.0); Immature Granulocytes % (Auto) 1 % (0-0); Immature Granulocytes Auto 0.04 Thou/mm3 (0.00-0.00); Lymphocytes # (Auto) 1.1 Thou/mm3 (1.0-4.8); Lymphocytes % (Auto) 22 % (10-50); Mean Corpuscular Hemoglobin 29.2 pg (25.0-35.0); Mean Corpuscular Volume 86 fL (80-100); Monocytes # (Auto) 0.5 Thou/mm3 (0.0-0.8); Monocytes % (Auto) 9 % (0-12); Neutrophils # (Auto) 3.4 Thou/mm3 (1.8-7.7); Neutrophils % (Auto) 67 % (37-80); Nucleated Red Blood Cell % 0 /100 WBC (0); Platelet Count 142 Thou/mm3 (140-440); RDW Standard Deviation 53.4 fL (36.4-46.3); Red Blood Count 4.83 Miln/mm3 (4.00-5.20)
[2024-08-05 11:35] LABS: Alanine Aminotransferase 91 U/L (10-49); Albumin, Serum 3.8 gm/dL (3.4-4.8); Albumin/Globulin Ratio 1.9 (1.2-2.2); Alkaline Phosphatase 52 U/L (46-116); Anion Gap 8 (7-16); Aspartate Amino Transferase 50 U/L (0-34); BUN/Creatinine Ratio 13 Ratio (12-20); Bilirubin,Total 1.4 mg/dL (0.3-1.2); Blood Urea Nitrogen 12 mg/dL (9-23); Calcium 8.8 mg/dL (8.3-10.6); Chloride 103 mMol/L (98-107); Creatinine (Component) 0.9 mg/dL (0.6-1.3); Glucose 79 mg/dL (74-106); Osmolality,Calculated 276 (275-295); Sodium 139 mMol/L (136-145); Total Protein 5.8 gm/dL (5.7-8.2); eGFR > 60 See Note
[2024-08-09 15:40] LABS: Basophils % (Auto) 0 % (0-2.5); Eosinophils % (Auto) 0 % (0-10); Hematocrit 37.8 % (36.0-46.0); Hemoglobin 12.8 g/dL (12.0-16.0); Immature Granulocytes % (Auto) 1 % (0-0); Immature Granulocytes Auto 0.05 Thou/mm3 (0.00-0.00); Lymphocytes # (Auto) 0.7 Thou/mm3 (1.0-4.8); Lymphocytes % (Auto) 9 % (10-50); Mean Corpuscular HGB Conc 33.9 g/dl (31.0-37.0); Mean Corpuscular Hemoglobin 29.4 pg (25.0-35.0); Mean Corpuscular Volume 87 fL (80-100); Monocytes # (Auto) 0.4 Thou/mm3 (0.0-0.8); Monocytes % (Auto) 6 % (0-12); Neutrophils # (Auto) 6.1 Thou/mm3 (1.8-7.7); Neutrophils % (Auto) 84 % (37-80); Nucleated Red Blood Cell % 0 /100 WBC (0); Platelet Count 161 Thou/mm3 (140-440); RDW Standard Deviation 56.2 fL (36.4-46.3); Red Blood Count 4.35 Miln/mm3 (4.00-5.20); White Blood Count 7.3 Thou/mm3 (3.6-11.0)
[2024-08-09 16:04] LABS: Alanine Aminotransferase 60 U/L (10-49); Albumin, Serum 3.7 gm/dL (3.4-4.8); Albumin/Globulin Ratio 1.8 (1.2-2.2); Alkaline Phosphatase 49 U/L (46-116); Anion Gap 9 (7-16); Aspartate Amino Transferase 34 U/L (0-34); BUN/Creatinine Ratio 17 Ratio (12-20); Bilirubin,Total 1.5 mg/dL (0.3-1.2); Blood Urea Nitrogen 17 mg/dL (9-23); Calcium (Corrected) 9.2 mg/dL (8.5-10.1); Carbon Dioxide 27.1 mMol/L (20.0-31.0); Chloride 103 mMol/L (98-107); Globulin 2.1 gm/dL (2.3-3.5); Glucose 129 mg/dL (74-106); Osmolality,Calculated 281 (275-295); Potassium 3.4 mMol/L (3.4-5.1); Sodium 139 mMol/L (136-145); Total Protein 5.8 gm/dL (5.7-8.2); eGFR > 60 See Note
[2024-08-11 09:43] LABS: Basophils % (Auto) 1 % (0-2.5); Eosinophils % (Auto) 0 % (0-10); Hematocrit 39.1 % (36.0-46.0); Immature Granulocytes % (Auto) 1 % (0-0); Immature Granulocytes Auto 0.05 Thou/mm3 (0.00-0.00); Lymphocytes # (Auto) 1.4 Thou/mm3 (1.0-4.8); Lymphocytes % (Auto) 23 % (10-50); Mean Corpuscular HGB Conc 33.2 g/dl (31.0-37.0); Mean Corpuscular Hemoglobin 29.7 pg (25.0-35.0); Mean Corpuscular Volume 89 fL (80-100); Monocytes # (Auto) 0.5 Thou/mm3 (0.0-0.8); Monocytes % (Auto) 9 % (0-12); Neutrophils # (Auto) 3.9 Thou/mm3 (1.8-7.7); Neutrophils % (Auto) 67 % (37-80); Nucleated Red Blood Cell % 0 /100 WBC (0); Platelet Count 174 Thou/mm3 (140-440); RDW Standard Deviation 57.5 fL (36.4-46.3); Red Blood Count 4.38 Miln/mm3 (4.00-5.20)
[2024-08-11 09:56] LABS: White Blood Count 5.8 Thou/mm3 (3.6-11.0)
[2024-08-11 10:09] LABS: Alanine Aminotransferase 60 U/L (10-49); Albumin, Serum 3.9 gm/dL (3.4-4.8); Albumin/Globulin Ratio 2.2 (1.2-2.2); Alkaline Phosphatase 51 U/L (46-116); Anion Gap 9 (7-16); Aspartate Amino Transferase 33 U/L (0-34); BUN/Creatinine Ratio 11 Ratio (12-20); Bilirubin,Total 1.4 mg/dL (0.3-1.2); Blood Urea Nitrogen 11 mg/dL (9-23); Calcium (Corrected) 9.1 mg/dL (8.5-10.1); Carbon Dioxide 27.1 mMol/L (20.0-31.0); Chloride 105 mMol/L (98-107); Globulin 1.8 gm/dL (2.3-3.5); Glucose 118 mg/dL (74-106); Osmolality,Calculated 281 (275-295); Potassium 3.2 mMol/L (3.4-5.1); Sodium 141 mMol/L (136-145); Total Protein 5.7 gm/dL (5.7-8.2); eGFR > 60 See Note
[2024-08-16 16:07] LABS: Basophils % (Auto) 1 % (0-2.5); Eosinophils % (Auto) 0 % (0-10); Hemoglobin 12.3 g/dL (12.0-16.0); Immature Granulocytes % (Auto) 2 % (0-0); Immature Granulocytes Auto 0.11 Thou/mm3 (0.00-0.00); Lymphocytes # (Auto) 0.7 Thou/mm3 (1.0-4.8); Lymphocytes % (Auto) 11 % (10-50); Mean Corpuscular HGB Conc 33.2 g/dl (31.0-37.0); Mean Corpuscular Hemoglobin 29.5 pg (25.0-35.0); Mean Corpuscular Volume 89 fL (80-100); Monocytes # (Auto) 0.4 Thou/mm3 (0.0-0.8); Monocytes % (Auto) 5 % (0-12); Neutrophils # (Auto) 5.7 Thou/mm3 (1.8-7.7); Neutrophils % (Auto) 82 % (37-80); Nucleated Red Blood Cell % 0 /100 WBC (0); Platelet Count 211 Thou/mm3 (140-440); Red Blood Count 4.17 Miln/mm3 (4.00-5.20)
[2024-08-16 16:34] LABS: Alanine Aminotransferase 44 U/L (10-49); Albumin, Serum 3.9 gm/dL (3.4-4.8); Alkaline Phosphatase 55 U/L (46-116); Anion Gap 7 (7-16); Aspartate Amino Transferase 32 U/L (0-34); BUN/Creatinine Ratio 16 Ratio (12-20); Blood Urea Nitrogen 16 mg/dL (9-23); Calcium 8.9 mg/dL (8.3-10.6); Carbon Dioxide 27.1 mMol/L (20.0-31.0); Chloride 104 mMol/L (98-107); Glucose 197 mg/dL (74-106); Osmolality,Calculated 281 (275-295); Potassium 3.6 mMol/L (3.4-5.1); Sodium 138 mMol/L (136-145); Total Protein 5.9 gm/dL (5.7-8.2); eGFR > 60 See Note
[2024-08-18 09:19] LABS: Basophils % (Auto) 1 % (0-2.5); Eosinophils # (Auto) 0.1 Thou/mm3 (0.0-0.5); Eosinophils % (Auto) 1 % (0-10); Hematocrit 37.7 % (36.0-46.0); Hemoglobin 12.6 g/dL (12.0-16.0); Immature Granulocytes % (Auto) 2 % (0-0); Immature Granulocytes Auto 0.14 Thou/mm3 (0.00-0.00); Lymphocytes # (Auto) 1.7 Thou/mm3 (1.0-4.8); Lymphocytes % (Auto) 21 % (10-50); Mean Corpuscular HGB Conc 33.4 g/dl (31.0-37.0); Mean Corpuscular Hemoglobin 29.9 pg (25.0-35.0); Mean Corpuscular Volume 90 fL (80-100); Monocytes # (Auto) 0.6 Thou/mm3 (0.0-0.8); Monocytes % (Auto) 8 % (0-12); Neutrophils # (Auto) 5.4 Thou/mm3 (1.8-7.7); Neutrophils % (Auto) 68 % (37-80); Nucleated Red Blood Cell % 0 /100 WBC (0); Platelet Count 211 Thou/mm3 (140-440); Red Blood Count 4.21 Miln/mm3 (4.00-5.20); White Blood Count 7.9 Thou/mm3 (3.6-11.0)
[2024-08-18 09:36] LABS: Alanine Aminotransferase 38 U/L (10-49); Albumin, Serum 3.8 gm/dL (3.4-4.8); Alkaline Phosphatase 44 U/L (46-116); Anion Gap 7 (7-16); Aspartate Amino Transferase 29 U/L (0-34); BUN/Creatinine Ratio 13 Ratio (12-20); Blood Urea Nitrogen 12 mg/dL (9-23); Calcium 8.8 mg/dL (8.3-10.6); Carbon Dioxide 27.2 mMol/L (20.0-31.0); Chloride 103 mMol/L (98-107); Creatinine (Component) 0.9 mg/dL (0.6-1.3); Globulin 1.9 gm/dL (2.3-3.5); Glucose 82 mg/dL (74-106); Osmolality,Calculated 272 (275-295); Potassium 3.3 mMol/L (3.4-5.1); Sodium 137 mMol/L (136-145); Total Protein 5.7 gm/dL (5.7-8.2); eGFR > 60 See Note
[2024-08-23 14:51] LABS: Basophils % (Auto) 0 % (0-2.5); Eosinophils % (Auto) 0 % (0-10); Hematocrit 37.4 % (36.0-46.0); Hemoglobin 12.3 g/dL (12.0-16.0); Immature Granulocytes % (Auto) 2 % (0-0); Immature Granulocytes Auto 0.17 Thou/mm3 (0.00-0.00); Lymphocytes # (Auto) 0.8 Thou/mm3 (1.0-4.8); Lymphocytes % (Auto) 8 % (10-50); Mean Corpuscular HGB Conc 32.9 g/dl (31.0-37.0); Mean Corpuscular Hemoglobin 29.7 pg (25.0-35.0); Mean Corpuscular Volume 90 fL (80-100); Monocytes # (Auto) 0.4 Thou/mm3 (0.0-0.8); Monocytes % (Auto) 4 % (0-12); Neutrophils # (Auto) 7.7 Thou/mm3 (1.8-7.7); Neutrophils % (Auto) 85 % (37-80); Nucleated Red Blood Cell % 0 /100 WBC (0); Platelet Count 246 Thou/mm3 (140-440); RDW Standard Deviation 57.3 fL (36.4-46.3); Red Blood Count 4.14 Miln/mm3 (4.00-5.20); White Blood Count 9.1 Thou/mm3 (3.6-11.0)
[2024-08-23 15:09] LABS: Alanine Aminotransferase 27 U/L (10-49); Albumin/Globulin Ratio 2.1 (1.2-2.2); Alkaline Phosphatase 51 U/L (46-116); Anion Gap 7 (7-16); Aspartate Amino Transferase 30 U/L (0-34); BUN/Creatinine Ratio 17 Ratio (12-20); Bilirubin,Total 0.8 mg/dL (0.3-1.2); Blood Urea Nitrogen 17 mg/dL (9-23); Calcium 9.2 mg/dL (8.3-10.6); Calcium (Corrected) 9.2 mg/dL (8.5-10.1); Carbon Dioxide 28.8 mMol/L (20.0-31.0); Chloride 104 mMol/L (98-107); Globulin 1.9 gm/dL (2.3-3.5); Glucose 137 mg/dL (74-106); Osmolality,Calculated 282 (275-295); Potassium 3.6 mMol/L (3.4-5.1); Sodium 140 mMol/L (136-145); Total Protein 5.9 gm/dL (5.7-8.2); eGFR > 60 See Note
== END 2024-08-24 23:59 | disposition home or self-care (01) ==
LOC: SCTC 13:27
PROVIDERS: PCP Physician Assistant; Referring Provider Physician Assistant; Visit Provider Internal Medicine Hematology & Oncology
DX: C64.2 Malignant neoplasm of left kidney, except renal pelvis (principal); C50.412 Malignant neoplasm of upper-outer quadrant of left female breast; C78.02 Secondary malignant neoplasm of left lung; R74.8 Abnormal levels of other serum enzymes; I10 Essential (primary) hypertension; Z90.12 Acquired absence of left breast and nipple; Z90.5 Acquired absence of kidney; Z17.0 Estrogen receptor positive status [ER+]; Z17.21 Progesterone receptor positive status; Z17.32 Human epidermal growth factor receptor 2 negative status; Z79.811 Long term (current) use of aromatase inhibitors
CPT/HCPCS: 36591; 80053; 84439; 84443; 85025; 99213; A4216; J1642; G0463

== ENCOUNTER 2024-09-20 15:21 | Outpatient (RCR) | payer MEDICARE, MEDICAID, SELFPAY ==
[2024-08-30 14:30] LABS: Basophils # (Auto) 0.1 Thou/mm3 (0.0-0.2); Basophils % (Auto) 1 % (0-2.5); Eosinophils # (Auto) 0.1 Thou/mm3 (0.0-0.5); Eosinophils % (Auto) 1 % (0-10); Hematocrit 35.5 % (36.0-46.0); Hemoglobin 11.9 g/dL (12.0-16.0); Immature Granulocytes % (Auto) 1 % (0-0); Immature Granulocytes Auto 0.06 Thou/mm3 (0.00-0.00); Lymphocytes # (Auto) 1.6 Thou/mm3 (1.0-4.8); Lymphocytes % (Auto) 17 % (10-50); Mean Corpuscular HGB Conc 33.5 g/dl (31.0-37.0); Mean Corpuscular Hemoglobin 29.8 pg (25.0-35.0); Mean Corpuscular Volume 89 fL (80-100); Monocytes # (Auto) 0.6 Thou/mm3 (0.0-0.8); Monocytes % (Auto) 7 % (0-12); Neutrophils # (Auto) 6.9 Thou/mm3 (1.8-7.7); Neutrophils % (Auto) 75 % (37-80); Nucleated Red Blood Cell % 0 /100 WBC (0); Platelet Count 227 Thou/mm3 (140-440); RDW Standard Deviation 55.8 fL (36.4-46.3); White Blood Count 9.2 Thou/mm3 (3.6-11.0)
[2024-08-30 14:52] LABS: Alanine Aminotransferase 23 U/L (10-49); Albumin, Serum 4.1 gm/dL (3.4-4.8); Albumin/Globulin Ratio 2.3 (1.2-2.2); Alkaline Phosphatase 45 U/L (46-116); Anion Gap 8 (7-16); Aspartate Amino Transferase 30 U/L (0-34); BUN/Creatinine Ratio 22 Ratio (12-20); Bilirubin,Total 0.9 mg/dL (0.3-1.2); Blood Urea Nitrogen 20 mg/dL (9-23); Calcium 9.3 mg/dL (8.3-10.6); Calcium (Corrected) 9.3 mg/dL (8.5-10.1); Carbon Dioxide 26.6 mMol/L (20.0-31.0); Chloride 103 mMol/L (98-107); Creatinine (Component) 0.9 mg/dL (0.6-1.3); Globulin 1.8 gm/dL (2.3-3.5); Glucose 103 mg/dL (74-106); Osmolality,Calculated 278 (275-295); Potassium 2.8 mMol/L (3.4-5.1); Sodium 138 mMol/L (136-145); Total Protein 5.9 gm/dL (5.7-8.2); eGFR > 60 See Note
--- NOTE | 2024-08-31 13:22 | CTCFLWUP_ITS ---
Patient: LENARD WINTERS : 1955 Page 2 of 2 FOLLOW UP NOTE DATE OF SERVICE: 08/31/2024 NAME: LENARD WINTERS ACCOUNT: [id number] : 1955 AGE: 69 INTERVAL HISTORY: Chief Complaint Doc Meyer, a kidney cancer patient, presented for follow-up of liver enzyme levels. Her history includes elevated liver enzymes requiring hospitalization after immunotherapy and axitinib (Inlyta) treatment. Liver enzymes normalized with steroids but increased again when immunotherapy was restarted. All cancer medications and steroids were discontinued for one month, with the patient continuing only blood pressure medication and vitamins. Weekly blood work was ordered to monitor liver function, and a referral to [facility] for a second opinion was approved on August 04. Current liver enzymes are normal. History of Present Illness The patient is being seen for follow-up of their cancer treatment, currently taking Inlyta. They were previously on a reduced dose of one tablet daily due to concurrent immunotherapy, which has now been discontinued. The clinician plans to increase the dose to two tablets per day. The patient's liver enzymes are noted to be increasing again. They stopped taking prednisone last Thursday. Due to the rising liver enzymes, the clinician is recommending restarting prednisone at 10 mg daily and temporarily discontinuing Inlyta. The patient is advised to undergo more frequent blood sravani ws to monitor their liver function. The patient reports taking a blood pressure medication in addition to their cancer treatment. They are unsure if they have completed [facility] testing. The clinician emphasizes the importance of watching their diet to avoid weight gain while on prednisone. The plan is to continue prednisone at 10 mg daily and reassess liver function with blood work scheduled for the following day. If liver enzymes normalize, the plan is to maintain prednisone and resume Inlyta treatment. Medical History - Liver enzyme elevation - Hypertension, controlled with medication Medications and Supplements - Inlyta - One tablet daily. - Dose was previously lowered due to therapy. - Prednisone 10 mg - Last taken on Thursday. - Used for managing liver enzyme levels. - Blood pressure medicine Social History - Diet: Patient advised to watch diet and avoid weight gain Chief Complaint Follow-up for liver enzyme levels, monitoring response to medication History of Present Illness Doc Meyer, a patient with kidney cancer, presents for follow-up regarding her liver enzyme levels and medication management. The patient had previously experienced elevated liver enzymes, which led to the discontinuation of her immunotherapy and axitinib (Inlyta) treatment. The patient's liver enzymes have now normalized after stopping the medications and starting steroids. The improvement was noted immediately after initiating the steroid treatment. However, when the immunotherapy was restarted, the liver enzymes began to increase again. Due to this recurrence, the decision was made to stop all medications, including steroids, for a month to observe the patient's response. The patient has been referred to [facility] for a second opinion, with the referral approved on August 04. This consultation aims to help determine the best course of treatment, given the complications with liver enzymes. The patient has also been seen by a doctor in [place], though no further details ab out this visit were provided. Currently, the patient is off all cancer-related medications and steroids. She is continuing only her blood pressure medication and vitamins. Weekly blood work has been recommended to monitor her liver function closely. Medical History - Kidney cancer - Elevated liver enzymes, requiring hospitalization and steroid treatment Medications and Supplements - Axitinib (Inlyta) - Stopped due to suspected liver enzyme elevation - Immunotherapy - Stopped due to suspected liver enzyme elevation - Steroids - Used for liver enzyme elevation - Recently discontinued - Blood pressure medication - Vitamin ONCOLOGY HISTORY: DIAGNOSIS: Malignant neoplasm of upper-outer quadrant of left female breast [ICD10] C50.412; Malignant neoplasm of left kidney, except renal pelvis [ICD10] C64.2 #1 lung lesions likely metastatic disease from breast cancer or renal cancer #2 history of stage IIIc, (PT2N3A) ER positive, NE positive, HER-2/sofiya negative 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 Status post modified radical mastectomy (06/20/2019). S/p 4 cycles of TC chemotherapy. 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 pT2, PN X. DATE OF DIAGNOSIS: 02/04/2024 STAGE/TNM: M1 metastatic clear-cell renal cell cancer on axitinib and Keytruda Also history of stage III ER/NE positive HER2 negative invasive lobular left breast cancer s/p mastectomy chemotherapy and on exemestane TREATMENT HISTORY: Care?Plan Start?Date Cycle Day Intent DOCEtaxel?75,?Cyclophosphamide?600?-?Adj 07/28/2019 1 21 Curative?(adjuvant) Axitinib?and?Pembrolizumab 03/02/2024 1 21 Palliative HISTORY OF PRESENT ILLNESS: Lenard Winters is a 69-year-old woman who have a history of breast cancer and renal cancer. Patient was initially diagnosed with the breast cancer as below ? 12/13/2018: Patient had bilateral screening mammograms which caused the suspicion for left-sided breast cancer. 03/31/2019: Patient saw radiation oncologist Dr. Aaron Reyes here at the cancer center. 04/07/2019: Patient saw Dr. Camden Ely who is planning on doing surgery near future. 05/18/2019: Patient had a left breast lumpectomy and sentinel lymph node biopsy. 05/26/2019: MRI of the breast. Left breast showed findings consistent with postsurgical seroma in the left breast as well as in left axilla. Right breast MRI was reportedly negative. 06/10/2019: DEXA scan?There is osteopenia based on lumbar spine measurements. There is osteopenia based on hip measurements Lumbar mineralization is increased 4.9% compared with June 13, 2014. Hip mineralization is increased 3.2% compared with June 13, 2014 06/20/2019: Left breast modified radical mastectomy? 07/08/2019: PET CT scan?Postsurgical changes left breast No mediastinal, axillary adenopathy. No pulmonary nodules 7 cm left renal mass worrisome for renal cell carcinoma. Recommend MRI abdomen/kidneys follow-up, pre and postcontrast. Non hypermetabolic 9 mm focal sclerosis left sacral wing Consider whole-body bone scan follow-up 07/28/2019? 09/29/2019: Patient had 4 cycles of TC chemotherapy in the adjuvant setting. 11/15/2019: Left nephrectomy. 12/07/2019?03/20/2020: Patient took anastrozole 1 mg p.o. daily in the adjuvant setting. Anastrozole discontinued due to body aches. 12/14/2019?02/08/2020: Patient received 5040 cGy radiation therapy to the left chest wall. 02/27/2020: CT scan of the abdomen and pelvis with and without contrast? 03/20/2020: Anastrozole discontinued due to body aches. Patient was started on Aromasin 25 mg p.o. daily. 06/08/2020: Esophagogastroduodenoscopy with biopsy? 07/04/2020: Patient had colonoscopy done by Dr. Gore. 08/27/2020: CT scan of the abdomen/pelvis with and without contrast? 03/13/2021: Right breast mammogram: BI-RADS Category 1: Negative findings. 03/07/2022: Bone density test? At the last visit patient was noted to have lung nodules which were biopsied. 02/04/[address]-guided needle biopsy shows metastatic clear-cell renal cell cancer. 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 levothyroxine - 50 mcg 1 tab Daily 2. losartan-hydrochlorothiazide - 50-12.5 mg 1 tab Daily 3. prednisone - 10 mg 1 tab Daily 4. Renal-Maurice - 0.8 mg 1 tab Daily Medications Last Reconciled by Vivi Marquez RN on 08/31/2024 ALLERGIES: No Known Drug Allergies REVIEW OF SYSTEMS: A complete 14-point review of systems was performed and is negative except as noted in interval history. PHYSICAL EXAMINATION: VITAL SIGNS: Temperature?98.5, B/P?121/60, Oxygen?Saturation?98% Weight?151?lbs (Change?since?08/30/24:?-0.2?lbs) PAIN: 0 - No pain ECOG Performance Status: 0 - Asymptomatic and fully active Conjunctive is white neck is supple. No adenopathy in the neck axilla or in the inguinal region. Chest clear to auscultation. No wheezes or rails audible. CVS rhythm regular. Abdomen is soft. Extremities no clubbing or cyanosis noted. LABORATORY DATA: I have personally reviewed and interpreted each of the patient?s relevant lab tests, abnormal findings are below: Date 08/23/24 08/30/24 ??WHITE?BLOOD?COUNT?(Thou/mm3) 9.1 9.2 ??RED?BLOOD?COUNT?(Miln/mm3) 4.14 4.00 ??HEMOGLOBIN?(gm/dl) 12.3 11.9?L ??HEMATOCRIT?(%) 37.4 35.5?L ??PLATELET?COUNT?(Thou/mm3) 246 227 ??NEUTROPHILS?%,?AUTO?(%) 85?H 75 ??LYMPH?%,?AUTO?(%) 8?L 17 ??NEUTROPHILS,?AUTO?(Thou/mm3) 7.7 6.9 ??GLUCOSE,RANDOM?(mg/dL) 137?H 103 ??BLOOD?UREA?NITROGEN?(mg/dL) 17 20 ??CREATININE?(mg/dL) 1.00 0.90 ??SODIUM?(mmol/L) 140 138 ??POTASSIUM?(mmol/L) 3.6 2.8?L ??CHLORIDE?(mmol/L) 104 103 ??CrCl?(CandG)?(ml/min) 57.49 63.87 ??AST/SGOT?(Unit/L) 30 30 ??ALT/SGPT?(Unit/L) 27 23 ??ALKALINE?PHOSPHATASE?(Unit/L) 51 45?L ??BILIRUBIN,?TOTAL?(mg/dL) 0.8 0.9 ??PROTEIN?TOTAL?(gm/dl) 5.9 5.9 ??ALBUMIN,?SERUM?(gm/dl) 4.0 4.1 ??GLOBULIN?(gm/dl) 1.9?L 1.8?L ??ALBUMIN/GLOBULIN?RATIO 2.1 2.3?H ??CALCIUM,?SERUM?(mg/dL) 9.2 9.3 ??CALCIUM?SERUM?(CORRECTED)?(mg/dL) 9.2 9.3 ASSESSMENT/PLAN: #1 immune related hepatitis Doc Meyer, a patient with kidney cancer, presenting with elevated liver enzymes and complications from cancer treatment. Kidney Cancer with Liver Enzyme Elevation Assessment: Patient has a history of kidney cancer and was previously on axitinib (Inlyta) and immunotherapy. She developed elevated liver enzymes, which initially improved with steroid treatment. Upon restarting cancer treatment, liver enzymes increased again. It is unclear whether axitinib or immunotherapy is causing the liver enzyme elevation. Liver enzymes have now normalized after discontinuing treatment. Plan: - Discontinue all cancer treatments for one month - Discontinue steroids - Continue weekly blood work to monitor liver enzymes - Referral to [facility] approved (as of August 04) for kidney cancer specialist consultation - Patient to schedule appointment - Consider restarting cancer treatment in one month, pending [facility] consultation and liver enzyme stability - Follow up after [facility] consultation to discuss treatment plan Hypertension Assessment: Patient is on blood pressure medication, details not provided. Plan: - Continue current blood pressure medication (dose and frequency not specified) Hypertension Assessment: Patient reports taking a blood pressure medication, indicating a history of hypertension. No specific concerns or changes were discussed regarding this condition. Plan: - Continue current blood pressure medication (specific medication not mentioned) #2 metastatic renal cancer Diagnosed on biopsy from the lung Patient was on Keytruda and axitinib rapidly growing tumor CT scan reviewed and shows great response Unfortunately treatment need to be held now Refer Ms. Winters to tertiary level care Continue prednisone resume Inlyta once enzymes normalize CBC CMP TSH ORDERS: Order # Description [id number] Follow Up Appointment [id number] Comprehensive Metabolic Panel - 12 [id number] MD Follow Up 4 Week [id number] CBC + Comprehensive Metabolic Panel [id number] Lab Appointment [id number] Follow Up Appointment [id number] CBC + Comprehensive Metabolic Panel [id number] Lab Appointment [id number] Follow Up Appointment [id number] CBC + Comprehensive Metabolic Panel [id number] Lab Appointment [id number] Follow Up Appointment [id number] CBC + Comprehensive Metabolic Panel [id number] Lab Appointment [id number] Follow Up Appointment [id number] CBC + Comprehensive Metabolic Panel [id number] Lab Appointment [id number] Follow Up Appointment [id number] CBC + Comprehensive Metabolic Panel [id number] Lab Appointment [id number] Follow Up Appointment RETURN TO CLINIC: BILLING AND COMPLIANCE: I reviewed external records from providers outside my specialty as summarized above. I spent a total of 50 minutes on this patient?s care on the day of their visit excluding time spent related to any billed procedures. This time includes time spent with the patient as well as time spent documenting in the medical record, reviewing patients records and tests, obtaining history, placing orders, communicating with other healthcare professionals, counseling the patient, family or caregiver, and/or care coordination for the diagnoses above. Electronically Signed by: Baudilio Macias MD T: 1:19 PM CC: PCP: Mateus Reis Referring: Mateus Reis This document was completed utilizing speech recognition software. Grammatical errors, random word insertions, pronoun errors, and incomplete sentences are an occasional consequence of this system due to software limitations, ambient noise, and hardware issues. Any formal questions or concerns about the content, text or information contained within the body of this dictation should be directly addressed to the provider for clarification.
[2024-09-06 12:52] LABS: Alanine Aminotransferase 23 U/L (10-49); Albumin, Serum 3.9 gm/dL (3.4-4.8); Albumin/Globulin Ratio 2.1 (1.2-2.2); Alkaline Phosphatase 46 U/L (46-116); Anion Gap 11 (7-16); Aspartate Amino Transferase 40 U/L (0-34); BUN/Creatinine Ratio 14 Ratio (12-20); Bilirubin,Total 1.1 mg/dL (0.3-1.2); Blood Urea Nitrogen 14 mg/dL (9-23); Calcium 8.4 mg/dL (8.3-10.6); Calcium (Corrected) 8.5 mg/dL (8.5-10.1); Carbon Dioxide 26.8 mMol/L (20.0-31.0); Chloride 103 mMol/L (98-107); Globulin 1.9 gm/dL (2.3-3.5); Glucose 146 mg/dL (74-106); Osmolality,Calculated 284 (275-295); Potassium 3.2 mMol/L (3.4-5.1); Sodium 141 mMol/L (136-145); Total Protein 5.8 gm/dL (5.7-8.2); eGFR > 60 See Note
[2024-09-13 11:52] LABS: Basophils % (Auto) 1 % (0-2.5); Eosinophils # (Auto) 0.1 Thou/mm3 (0.0-0.5); Eosinophils % (Auto) 1 % (0-10); Hematocrit 33.9 % (36.0-46.0); Hemoglobin 11.5 g/dL (12.0-16.0); Immature Granulocytes % (Auto) 0 % (0-0); Immature Granulocytes Auto 0.02 Thou/mm3 (0.00-0.00); Lymphocytes # (Auto) 0.8 Thou/mm3 (1.0-4.8); Lymphocytes % (Auto) 14 % (10-50); Mean Corpuscular HGB Conc 33.9 g/dl (31.0-37.0); Mean Corpuscular Hemoglobin 29.9 pg (25.0-35.0); Mean Corpuscular Volume 88 fL (80-100); Monocytes # (Auto) 0.4 Thou/mm3 (0.0-0.8); Monocytes % (Auto) 7 % (0-12); Neutrophils % (Auto) 77 % (37-80); Nucleated Red Blood Cell % 0 /100 WBC (0); Platelet Count 204 Thou/mm3 (140-440); RDW Standard Deviation 51.4 fL (36.4-46.3); Red Blood Count 3.84 Miln/mm3 (4.00-5.20); White Blood Count 5.3 Thou/mm3 (3.6-11.0)
[2024-09-13 12:14] LABS: Alanine Aminotransferase 25 U/L (10-49); Albumin/Globulin Ratio 2.1 (1.2-2.2); Alkaline Phosphatase 50 U/L (46-116); Anion Gap 9 (7-16); Aspartate Amino Transferase 51 U/L (0-34); BUN/Creatinine Ratio 14 Ratio (12-20); Bilirubin,Total 0.8 mg/dL (0.3-1.2); Blood Urea Nitrogen 14 mg/dL (9-23); Calcium 8.6 mg/dL (8.3-10.6); Calcium (Corrected) 8.6 mg/dL (8.5-10.1); Carbon Dioxide 27.9 mMol/L (20.0-31.0); Chloride 104 mMol/L (98-107); Globulin 1.9 gm/dL (2.3-3.5); Glucose 127 mg/dL (74-106); Osmolality,Calculated 283 (275-295); Potassium 3.3 mMol/L (3.4-5.1); Sodium 141 mMol/L (136-145); Total Protein 5.9 gm/dL (5.7-8.2); eGFR > 60 See Note
[2024-09-20 16:23] LABS: Basophils # (Auto) 0.1 Thou/mm3 (0.0-0.2); Basophils % (Auto) 1 % (0-2.5); Eosinophils # (Auto) 0.1 Thou/mm3 (0.0-0.5); Eosinophils % (Auto) 2 % (0-10); Hematocrit 33.4 % (36.0-46.0); Hemoglobin 11.3 g/dL (12.0-16.0); Immature Granulocytes % (Auto) 0 % (0-0); Immature Granulocytes Auto 0.01 Thou/mm3 (0.00-0.00); Lymphocytes % (Auto) 20 % (10-50); Mean Corpuscular HGB Conc 33.8 g/dl (31.0-37.0); Mean Corpuscular Hemoglobin 30.1 pg (25.0-35.0); Mean Corpuscular Volume 89 fL (80-100); Monocytes # (Auto) 0.5 Thou/mm3 (0.0-0.8); Monocytes % (Auto) 10 % (0-12); Neutrophils # (Auto) 3.4 Thou/mm3 (1.8-7.7); Neutrophils % (Auto) 66 % (37-80); Nucleated Red Blood Cell % 0 /100 WBC (0); Platelet Count 231 Thou/mm3 (140-440); RDW Standard Deviation 48.1 fL (36.4-46.3); Red Blood Count 3.76 Miln/mm3 (4.00-5.20); White Blood Count 5.1 Thou/mm3 (3.6-11.0)
[2024-09-20 16:49] LABS: Alanine Aminotransferase 20 U/L (10-49); Albumin, Serum 3.9 gm/dL (3.4-4.8); Albumin/Globulin Ratio 2.4 (1.2-2.2); Alkaline Phosphatase 53 U/L (46-116); Anion Gap 9 (7-16); Aspartate Amino Transferase 46 U/L (0-34); BUN/Creatinine Ratio 12 Ratio (12-20); Bilirubin,Total 0.6 mg/dL (0.3-1.2); Blood Urea Nitrogen 14 mg/dL (9-23); Calcium 8.5 mg/dL (8.3-10.6); Calcium (Corrected) 8.6 mg/dL (8.5-10.1); Carbon Dioxide 28.5 mMol/L (20.0-31.0); Chloride 105 mMol/L (98-107); Creatinine (Component) 1.2 mg/dL (0.6-1.3); Globulin 1.6 gm/dL (2.3-3.5); Glucose 96 mg/dL (74-106); Osmolality,Calculated 283 (275-295); Potassium 3.3 mMol/L (3.4-5.1); Sodium 142 mMol/L (136-145); Thyroid Stimulating Hormone 0.49 uIU/mL (0.55-4.78); Total Protein 5.5 gm/dL (5.7-8.2); eGFR 49 See Note
== END 2024-09-24 23:59 | disposition home or self-care (01) ==
LOC: SCTC 15:21
PROVIDERS: PCP Physician Assistant; Referring Provider Physician Assistant; Visit Provider Internal Medicine Hematology & Oncology
DX: C64.2 Malignant neoplasm of left kidney, except renal pelvis (principal); C50.412 Malignant neoplasm of upper-outer quadrant of left female breast; C78.02 Secondary malignant neoplasm of left lung; Z17.0 Estrogen receptor positive status [ER+]; Z17.21 Progesterone receptor positive status; Z17.32 Human epidermal growth factor receptor 2 negative status; R74.8 Abnormal levels of other serum enzymes; I10 Essential (primary) hypertension; Z90.12 Acquired absence of left breast and nipple; Z92.3 Personal history of irradiation; Z90.5 Acquired absence of kidney; M85.89 Other specified disorders of bone density and structure, multiple sites
CPT/HCPCS: 36591; 80053; 84443; 85025; 96360; 99212; A4216; J1642; G0463

== ENCOUNTER 2024-09-28 13:53 | Outpatient (RCR) | payer MEDICARE, MEDICAID, SELFPAY ==
[2024-09-27 09:47] LABS: Basophils % (Auto) 1 % (0-2.5); Eosinophils # (Auto) 0.1 Thou/mm3 (0.0-0.5); Eosinophils % (Auto) 2 % (0-10); Hematocrit 34.6 % (36.0-46.0); Hemoglobin 11.6 g/dL (12.0-16.0); Immature Granulocytes % (Auto) 0 % (0-0); Immature Granulocytes Auto 0.02 Thou/mm3 (0.00-0.00); Lymphocytes % (Auto) 16 % (10-50); Mean Corpuscular HGB Conc 33.5 g/dl (31.0-37.0); Mean Corpuscular Hemoglobin 29.4 pg (25.0-35.0); Mean Corpuscular Volume 88 fL (80-100); Monocytes # (Auto) 0.6 Thou/mm3 (0.0-0.8); Monocytes % (Auto) 10 % (0-12); Neutrophils # (Auto) 4.3 Thou/mm3 (1.8-7.7); Neutrophils % (Auto) 72 % (37-80); Nucleated Red Blood Cell % 0 /100 WBC (0); Platelet Count 251 Thou/mm3 (140-440); RDW Standard Deviation 46.5 fL (36.4-46.3); Red Blood Count 3.94 Miln/mm3 (4.00-5.20)
[2024-09-27 10:22] LABS: Alanine Aminotransferase 19 U/L (10-49); Albumin/Globulin Ratio 2.5 (1.2-2.2); Alkaline Phosphatase 59 U/L (46-116); Anion Gap 13 (7-16); Aspartate Amino Transferase 49 U/L (0-34); BUN/Creatinine Ratio 14 Ratio (12-20); Bilirubin,Total 0.9 mg/dL (0.3-1.2); Blood Urea Nitrogen 14 mg/dL (9-23); Calcium 9.3 mg/dL (8.3-10.6); Calcium (Corrected) 9.3 mg/dL (8.5-10.1); Carbon Dioxide 25.3 mMol/L (20.0-31.0); Chloride 101 mMol/L (98-107); Globulin 1.6 gm/dL (2.3-3.5); Glucose 120 mg/dL (74-106); Osmolality,Calculated 279 (275-295); Potassium 3.1 mMol/L (3.4-5.1); Sodium 139 mMol/L (136-145); Thyroid Stimulating Hormone 0.82 uIU/mL (0.55-4.78); Total Protein 5.6 gm/dL (5.7-8.2); eGFR > 60 See Note
--- NOTE | 2024-09-28 15:17 | CTCFLWUP_ITS ---
Patient: LENARD WINTERS : 1955 Page 2 of 2 FOLLOW UP NOTE DATE OF SERVICE: 09/28/2024 NAME: LENARD WINTERS ACCOUNT: [id number] : 1955 AGE: 69 INTERVAL HISTORY: Since last visit patient is scheduled to see oncologist at [place]. Patient has not taken any steroids since the last week. Patient's chemotherapy is held. Patient has no new complaints History of Present Illness The patient is being seen for follow-up of their cancer treatment, currently taking Inlyta. They were previously on a reduced dose of one tablet daily due to concurrent immunotherapy, which has now been discontinued. The clinician plans to increase the dose to two tablets per day. The patient's liver enzymes are noted to be increasing again. They stopped taking prednisone last Thursday. Due to the rising liver enzymes, the clinician is recommending restarting prednisone at 10 mg daily and temporarily discontinuing Inlyta. The patient is advised to undergo more frequent blood sravani ws to monitor their liver function. The patient reports taking a blood pressure medication in addition to their cancer treatment. They are unsure if they have completed Netera testing. The clinician emphasizes the importance of watching their diet to avoid weight gain while on prednisone. The plan is to continue prednisone at 10 mg daily and reassess liver function with blood work scheduled for the following day. If liver enzymes normalize, the plan is to maintain prednisone and resume Inlyta treatment. Medical History - Liver enzyme elevation - Hypertension, controlled with medication Medications and Supplements - Inlyta - One tablet daily. - Dose was previously lowered due to therapy. - Prednisone 10 mg - Last taken on Thursday. - Used for managing liver enzyme levels. - Blood pressure medicine Social History - Diet: Patient advised to watch diet and avoid weight gain Chief Complaint Follow-up for liver enzyme levels, monitoring response to medication History of Present Illness Doc Meyer, a patient with kidney cancer, presents for follow-up regarding her liver enzyme levels and medication management. The patient had previously experienced elevated liver enzymes, which led to the discontinuation of her immunotherapy and axitinib (Inlyta) treatment. The patient's liver enzymes have now normalized after stopping the medications and starting steroids. The improvement was noted immediately after initiating the steroid treatment. However, when the immunotherapy was restarted, the liver enzymes began to increase again. Due to this recurrence, the decision was made to stop all medications, including steroids, for a month to observe the patient's response. The patient has been referred to [place] for a second opinion, with the referral approved on August 04. This consultation aims to help determine the best course of treatment, given the complications with liver enzymes. The patient has also been seen by a doctor in [place], though no further details ab out this visit were provided. Currently, the patient is off all cancer-related medications and steroids. She is continuing only her blood pressure medication and vitamins. Weekly blood work has been recommended to monitor her liver function closely. Medical History - Kidney cancer - Elevated liver enzymes, requiring hospitalization and steroid treatment Medications and Supplements - Axitinib (Inlyta) - Stopped due to suspected liver enzyme elevation - Immunotherapy - Stopped due to suspected liver enzyme elevation - Steroids - Used for liver enzyme elevation - Recently discontinued - Blood pressure medication - Vitamin ONCOLOGY HISTORY:?[facility] Hx? DIAGNOSIS: Malignant neoplasm of upper-outer quadrant of left female breast [ICD10] C50.412; Malignant neoplasm of left kidney, except renal pelvis [ICD10] C64.2 #1 lung lesions likely metastatic disease from breast cancer or renal cancer #2 history of stage IIIc, (PT2N3A) ER positive, TN positive, HER-2/sofiya negative 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 Status post modified radical mastectomy (06/20/2019). S/p 4 cycles of TC chemotherapy. 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 pT2, PN X. DATE OF DIAGNOSIS: 02/04/2024 STAGE/TNM: M1 metastatic clear-cell renal cell cancer on axitinib and Keytruda Also history of stage III ER/TN positive HER2 negative invasive lobular left breast cancer s/p mastectomy chemotherapy and on exemestane TREATMENT HISTORY: Care?Plan Start?Date Cycle Day Intent Axitinib?and?Pembrolizumab 03/02/2024 1 21 Palliative DOCEtaxel?75,?Cyclophosphamide?600?-?Adj 07/28/201905 17 Curative?(adjuvant) HISTORY OF PRESENT ILLNESS: Lenard Winters is a 69-year-old woman who have a history of breast cancer and renal cancer. Patient was initially diagnosed with the breast cancer as below ? 12/13/2018: Patient had bilateral screening mammograms which caused the suspicion for left-sided breast cancer. 03/31/2019: Patient saw radiation oncologist Dr. Aaron Reyes here at the cancer center. 04/07/2019: Patient saw Dr. Camden Ely who is planning on doing surgery near future. 05/18/2019: Patient had a left breast lumpectomy and sentinel lymph node biopsy. 05/26/2019: MRI of the breast. Left breast showed findings consistent with postsurgical seroma in the left breast as well as in left axilla. Right breast MRI was reportedly negative. 06/10/2019: DEXA scan?There is osteopenia based on lumbar spine measurements. There is osteopenia based on hip measurements Lumbar mineralization is increased 4.9% compared with June 13, 2014. Hip mineralization is increased 3.2% compared with June 13, 2014 06/20/2019: Left breast modified radical mastectomy? 07/08/2019: PET CT scan?Postsurgical changes left breast No mediastinal, axillary adenopathy. No pulmonary nodules 7 cm left renal mass worrisome for renal cell carcinoma. Recommend MRI abdomen/kidneys follow-up, pre and postcontrast. Non hypermetabolic 9 mm focal sclerosis left sacral wing Consider whole-body bone scan follow-up 07/28/2019? 09/29/2019: Patient had 4 cycles of TC chemotherapy in the adjuvant setting. 11/15/2019: Left nephrectomy. 12/07/2019?03/20/2020: Patient took anastrozole 1 mg p.o. daily in the adjuvant setting. Anastrozole discontinued due to body aches. 12/14/2019?02/08/2020: Patient received 5040 cGy radiation therapy to the left chest wall. 02/27/2020: CT scan of the abdomen and pelvis with and without contrast? 03/20/2020: Anastrozole discontinued due to body aches. Patient was started on Aromasin 25 mg p.o. daily. 06/08/2020: Esophagogastroduodenoscopy with biopsy? 07/04/2020: Patient had colonoscopy done by Dr. Gore. 08/27/2020: CT scan of the abdomen/pelvis with and without contrast? 03/13/2021: Right breast mammogram: BI-RADS Category 1: Negative findings. 03/07/2022: Bone density test? At the last visit patient was noted to have lung nodules which were biopsied. 02/04/[address]-guided needle biopsy shows metastatic clear-cell renal cell cancer. OTHER MEDICAL HISTORY/CONDITIONS: FAMILY HISTORY: ?Clone Family Hx? 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 levothyroxine - 50 mcg 1 tab Daily 2. losartan-hydrochlorothiazide - 50-12.5 mg 1 tab Daily 3. Renal-Maurice - 0.8 mg 1 tab Daily?Palabra Meds? Medications Last Reconciled by Nancy Canada MA on 09/28/2024 ALLERGIES: No Known Drug Allergies REVIEW OF SYSTEMS: A complete 14-point review of systems was performed and is negative except as noted in interval history. PHYSICAL EXAMINATION:?[facility] PE? VITAL SIGNS: Temperature?97.5, B/P?122/82, Oxygen?Saturation?97% Weight?150?lbs (Change?since?09/27/24:?-1?lbs) PAIN: 0 - No pain ECOG Performance Status: 0 - Asymptomatic and fully active Conjunctive is white neck is supple. No adenopathy in the neck axilla or in the inguinal region. Chest clear to auscultation. No wheezes or rails audible. CVS rhythm regular. Abdomen is soft. Extremities no clubbing or cyanosis noted. LABORATORY DATA: I have personally reviewed and interpreted each of the patient?s relevant lab tests, abnormal findings are below: Date 09/20/24 09/27/24 ??WHITE?BLOOD?COUNT?(Thou/mm3) 5.1 6.0 ??RED?BLOOD?COUNT?(Miln/mm3) 3.76?L 3.94?L ??HEMOGLOBIN?(gm/dl) 11.3?L 11.6?L ??HEMATOCRIT?(%) 33.4?L 34.6?L ??PLATELET?COUNT?(Thou/mm3) 231 251 ??NEUTROPHILS?%,?AUTO?(%) 66 72 ??LYMPH?%,?AUTO?(%) 20 16 ??NEUTROPHILS,?AUTO?(Thou/mm3) 3.4 4.3 ??GLUCOSE,RANDOM?(mg/dL) 96 120?H ??BLOOD?UREA?NITROGEN?(mg/dL) 14 14 ??CREATININE?(mg/dL) 1.20 1.00 ??SODIUM?(mmol/L) 142 139 ??POTASSIUM?(mmol/L) 3.3?L 3.1?L ??CHLORIDE?(mmol/L) 105 101 ??CrCl?(CandG)?(ml/min) 48.22 57.41 ??AST/SGOT?(Unit/L) 46?H 49?H ??ALT/SGPT?(Unit/L) 20 19 ??ALKALINE?PHOSPHATASE?(Unit/L) 53 59 ??BILIRUBIN,?TOTAL?(mg/dL) 0.6 0.9 ??PROTEIN?TOTAL?(gm/dl) 5.5?L 5.6?L ??ALBUMIN,?SERUM?(gm/dl) 3.9 4.0 ??GLOBULIN?(gm/dl) 1.6?L 1.6?L ??ALBUMIN/GLOBULIN?RATIO 2.4?H 2.5?H ??CALCIUM,?SERUM?(mg/dL) 8.5 9.3 ??CALCIUM?SERUM?(CORRECTED)?(mg/dL) 8.6 9.3 ASSESSMENT/PLAN:?Jaime Macias Assessment/Plan? #1 immune related hepatitis Doc Meyer, a patient with kidney cancer, presenting with elevated liver enzymes and complications from cancer treatment. Kidney Cancer with Liver Enzyme Elevation Assessment: Patient has a history of kidney cancer and was previously on axitinib (Inlyta) and immunotherapy. She developed elevated liver enzymes, which initially improved with steroid treatment. Upon restarting cancer treatment, liver enzymes increased again. It is unclear whether axitinib or immunotherapy is causing the liver enzyme elevation. Liver enzymes have now normalized after discontinuing treatment. Plan: - Discontinue all cancer treatments for one month - Discontinue steroids - Continue weekly blood work to monitor liver enzymes - Referral to [facility] approved (as of August 04) for kidney cancer specialist consultation - Patient to schedule appointment - Consider restarting cancer treatment in one month, pending [place] consultation and liver enzyme stability - Follow up after [facility] consultation to discuss treatment plan -I will see Ms. Winters back and make treatment plan after getting [facility] recommendations Hypertension Assessment: Patient is on blood pressure medication, details not provided. Plan: - Continue current blood pressure medication (dose and frequency not specified) Hypertension Assessment: Patient reports taking a blood pressure medication, indicating a history of hypertension. No specific concerns or changes were discussed regarding this condition. Plan: - Continue current blood pressure medication (specific medication not mentioned) #2 metastatic renal cancer Diagnosed on biopsy from the lung Patient was on Keytruda and axitinib rapidly growing tumor CT scan reviewed and shows great response Unfortunately treatment need to be held now Refer Ms. Winters to tertiary level care Continue prednisone resume Inlyta once enzymes normalize CBC CMP TSH ORDERS: Order # Description [id number] PET/CT of Skull to mid-thigh for Restaging [id number] Comprehensive Metabolic Panel - 12 + CBC with Auto Diff [id number] Follow Up 1 Week [id number] CBC + Comprehensive Metabolic Panel [id number] Lab Appointment [id number] Follow Up Appointment [id number] CBC + Comprehensive Metabolic Panel [id number] Lab Appointment [id number] Follow Up Appointment [id number] CBC + Comprehensive Metabolic Panel [id number] Lab Appointment [id number] Follow Up Appointment [id number] CBC + Comprehensive Metabolic Panel [id number] Lab Appointment [id number] Follow Up Appointment [id number] CBC + Comprehensive Metabolic Panel [id number] Lab Appointment [id number] Follow Up Appointment RETURN TO CLINIC: BILLING AND COMPLIANCE: I reviewed external records from providers outside my specialty as summarized above. I spent a total of 50 minutes on this patient?s care on the day of their visit excluding time spent related to any billed procedures. This time includes time spent with the patient as well as time spent documenting in the medical record, reviewing patients records and tests, obtaining history, placing orders, communicating with other healthcare professionals, counseling the patient, family or caregiver, and/or care coordination for the diagnoses above. Electronically Signed by: Baudilio Macias MD T: 3:15 PM CC: PCP: Mateus Reis Referring: Mateus Reis This document was completed utilizing speech recognition software. Grammatical errors, random word insertions, pronoun errors, and incomplete sentences are an occasional consequence of this system due to software limitations, ambient noise, and hardware issues. Any formal questions or concerns about the content, text or information contained within the body of this dictation should be directly addressed to the provider for clarification.
== END 2024-10-24 23:59 | disposition home or self-care (01) ==
LOC: SCTC 13:53
PROVIDERS: PCP Physician Assistant; Referring Provider Physician Assistant; Visit Provider Internal Medicine Hematology & Oncology
DX: C64.2 Malignant neoplasm of left kidney, except renal pelvis (principal); C50.412 Malignant neoplasm of upper-outer quadrant of left female breast; Z17.0 Estrogen receptor positive status [ER+]; Z17.21 Progesterone receptor positive status; Z17.32 Human epidermal growth factor receptor 2 negative status; Z90.12 Acquired absence of left breast and nipple; R74.8 Abnormal levels of other serum enzymes; I10 Essential (primary) hypertension; Z92.21 Personal history of antineoplastic chemotherapy; Z79.811 Long term (current) use of aromatase inhibitors; Z90.5 Acquired absence of kidney
CPT/HCPCS: 36591; 80053; 84443; 85025; 99212; A4216; J1642; G0463

== ENCOUNTER → 2024-10-27 | Outpatient (CLI) | payer MEDICARE, MEDICAID, SELFPAY ==
[2024-10-27 09:02] LABS: Misc Send Out* See Sep Rpt
[2024-10-27 10:54] LABS: Thyroid Stimulating Hormone 0.90 uIU/mL (0.55-4.78)
[2024-11-01 06:42] LABS: Thyroglobulin Antibodies* <1 IU/mL (< OR = 1)
== END | disposition home or self-care (01) ==
PROVIDERS: PCP Internal Medicine Hematology & Oncology; Referring Provider Physician Assistant; Visit Provider Family Medicine
DX: C64.2 Malignant neoplasm of left kidney, except renal pelvis (principal); C78.02 Secondary malignant neoplasm of left lung; C50.412 Malignant neoplasm of upper-outer quadrant of left female breast; E03.9 Hypothyroidism, unspecified
CPT/HCPCS: 36415; 84443; 86800

== ENCOUNTER → 2024-11-01 | Outpatient (CLI) | payer MEDICARE, MEDICAID, SELFPAY ==
--- NOTE | 2024-11-01 13:15 | XR_ITS ---
EXAMINATION: PET/CT FUSION SKULL TO THIGH EXAM DATE AND TIME: November 01, 2024 1412 hours Comparison PET/CT scan June 09, 2024, CT chest abdomen pelvis June 06, 2024, MR abdomen May 25, 2024 INDICATIONS: Diagnosis invasive lobular carcinoma left breast, left renal cell carcinoma, staging post treatment CTDI:vol (mGy) 5.65 DLP: (mGycm) 516.49 PROCEDURE: 15.7 mCi FDG was administered intravenously To allow for distribution and uptake of radiotracer, the patient was allowed to rest quietly in a shielded room. Imaging was performed on an integrated 16-slice PET/CT scanner, with scanning from the skull base to the mid thigh. Serum blood glucose at the time of the injection was measured 86 mg/dL. CT scanning was performed without oral or intravenous contrast material. FINDINGS: Head and Neck: Axial image 66 retroclavicular metastatic lymph node 17 mm Chest: Enlarging hypermetabolic mass left apex, 27 mm compared to 17 mm on June 09, 2024 Hypermetabolic 28 mm pulmonary mass left upper lobe compared to 21 mm on June 09, 2024 Interval 6.7 x 2.4 cm hypermetabolic high left periaortic mediastinal lymphadenopathy. 39 mm hypermetabolic right hilar lymphadenopathy compared to 4 mm on June 09, 2024 Abdomen and Pelvis: There is no jonathan hypermetabolism in retroperitoneal or pelvic chains. The spleen is normal in size and FDG avidity. Musculoskeletal: Marrow uptake is within normal range. IMPRESSION: Compared to PET CT scan June 09, 2024: Interval 17 mm retroclavicular hypermetabolic metastatic lymph node Enlarging hypermetabolic mass left apex, 27 mm compared to 17 mm June 09, 2024 Enlarging hypermetabolic 28 mm pulmonary mass left upper lobe compared to 21 mm June 09, 2024 Hypermetabolic left high periaortic mediastinal lymphadenopathy, 6.7 x 2.4 cm compared to 4.5 x 2.[address] chest June 06, 2024 39 mm hypermetabolic right hilar lymphadenopathy compared to 4 mm on June 09, 2024 No hypermetabolic liver lesions
== END | disposition home or self-care (01) ==
PROVIDERS: Referring Provider Internal Medicine Hematology & Oncology; Visit Provider Internal Medicine Hematology & Oncology
DX: R91.8 Other nonspecific abnormal finding of lung field (principal); R59.0 Localized enlarged lymph nodes; C50.412 Malignant neoplasm of upper-outer quadrant of left female breast; C64.2 Malignant neoplasm of left kidney, except renal pelvis
CPT/HCPCS: 78815; A9552

== ENCOUNTER 2024-11-16 09:19 | Outpatient (RCR) | payer MEDICARE, MEDICAID, SELFPAY ==
[2024-11-15 10:43] LABS: Basophils # (Auto) 0.0 Thou/mm3 (0.0-0.2); Basophils % (Auto) 1 % (0-2.5); Eosinophils # (Auto) 0.1 Thou/mm3 (0.0-0.5); Eosinophils % (Auto) 1 % (0-10); Hematocrit 36.8 % (36.0-46.0); Hemoglobin 12.2 g/dL (12.0-16.0); Immature Granulocytes Auto 0.01 Thou/mm3 (0.00-0.00); Lymphocytes # (Auto) 1.0 Thou/mm3 (1.0-4.8); Lymphocytes % (Auto) 22 % (10-50); Mean Corpuscular HGB Conc 33.2 g/dl (31.0-37.0); Mean Corpuscular Hemoglobin 27.5 pg (25.0-35.0); Mean Corpuscular Volume 83 fL (80-100); Monocytes # (Auto) 0.5 Thou/mm3 (0.0-0.8); Monocytes % (Auto) 11 % (0-12); Neutrophils # (Auto) 2.9 Thou/mm3 (1.8-7.7); Neutrophils % (Auto) 65 % (37-80); Nucleated Red Blood Cell # 0.00 Thou/mm3 (0.00-0.00); Nucleated Red Blood Cell % 0 /100 WBC (0); Platelet Count 233 Thou/mm3 (140-440); RDW Standard Deviation 42.0 fL (36.4-46.3); Red Blood Count 4.43 Miln/mm3 (4.00-5.20); White Blood Count 4.5 Thou/mm3 (3.6-11.0)
[2024-11-15 11:05] LABS: Alanine Aminotransferase 22 U/L (10-49); Albumin, Serum 3.8 gm/dL (3.4-4.8); Albumin/Globulin Ratio 2.0 (1.2-2.2); Alkaline Phosphatase 61 U/L (46-116); Anion Gap 10 (7-16); Aspartate Amino Transferase 48 U/L (0-34); BUN/Creatinine Ratio 13 Ratio (12-20); Bilirubin,Total 0.4 mg/dL (0.3-1.2); Blood Urea Nitrogen 12 mg/dL (9-23); Calcium 8.9 mg/dL (8.3-10.6); Calcium (Corrected) 9.1 mg/dL (8.5-10.1); Carbon Dioxide 25.3 mMol/L (20.0-31.0); Chloride 107 mMol/L (98-107); Creatinine (Component) 0.9 mg/dL (0.6-1.3); Globulin 1.9 gm/dL (2.3-3.5); Glucose 103 mg/dL (74-106); Osmolality,Calculated 282 (275-295); Potassium 3.6 mMol/L (3.4-5.1); Sodium 142 mMol/L (136-145); Thyroid Stimulating Hormone 1.27 uIU/mL (0.55-4.78); Total Protein 5.7 gm/dL (5.7-8.2); eGFR > 60 See Note
--- NOTE | 2024-11-21 05:14 | CTCFLWUP_ITS ---
Patient: LENARD WINTERS : 1955 Page 8 of 10 FOLLOW UP NOTE DATE OF SERVICE: 11/16/2024 NAME: LENARD WINTERS ACCOUNT: [id number] : 1955 AGE: 69 INTERVAL HISTORY: Since last visit patient is scheduled to see oncologist at [place]. Patient has not taken any steroids since the last week. Patient's chemotherapy is held. Patient has no new complaints Doc Meyer, a patient with a history of liver issues and cancer, presents for follow-up regarding her ongoing treatment and recent imaging results. The patient's weight has decreased from 152 lbs to 146 lbs since her last visit, which occurred after completing a course of steroids that had caused fluid retention and a puffy appearance. The patient reports a history of liver failure, with her liver enzymes previously elevated to 717. She expresses concern about the medication Leita potentially causing her symptoms, noting that her condition worsened after stopping the medication. A recent PET scan revealed worsening of her condition, with a 27mm metastatic lymph node (previously 17mm) and a 28mm pulmonary mass (previously 17mm). No liver involvement was noted on the scan. The patient had a phone consultation with another healthcare team on October 11 to discuss her PET scan results. She reports feeling disappointed with the outcome of that consultation, as it appears no further treatment options were offered by that team. Medical History - Liver failure (resolved) - Weight fluctuations related to steroid treatment Medications and Supplements - Leita - Discontinued. Suspected to be causing liver failure. - Steroid - Caused fluid retention and puffiness. - Discontinued. Patient's weight dropped after stopping. Review of Systems General: Positive for weight loss. Social History - Diet: Patient advised to watch diet and avoid weight gain Chief Complaint Follow-up for liver enzyme levels, monitoring response to medication Medications and Supplements - Inlyta - One tablet daily. - Dose was previously lowered due to therapy. - Prednisone 10 mg - Last taken on Thursday. - Used for managing liver enzyme levels. - Blood pressure medicine Social History - Diet: Patient advised to watch diet and avoid weight gain Chief Complaint Follow-up for liver enzyme levels, monitoring response to medication History of Present Illness Doc Meyer, a patient with kidney cancer, presents for follow-up regarding her liver enzyme levels and medication management. The patient had previously experienced elevated liver enzymes, which led to the discontinuation of her immunotherapy and axitinib (Inlyta) treatment. The patient's liver enzymes have now normalized after stopping the medications and starting steroids. The improvement was noted immediately after initiating the steroid treatment. However, when the immunotherapy was restarted, the liver enzymes began to increase again. Due to this recurrence, the decision was made to stop all medications, including steroids, for a month to observe the patient's response. The patient has been referred to [facility] for a second opinion, with the referral approved on August 04. This consultation aims to help determine the best course of treatment, given the complications with liver enzymes. The patient has also been seen by a doctor in [place], though no further details ab out this visit were provided. Currently, the patient is off all cancer-related medications and steroids. She is continuing only her blood pressure medication and vitamins. Weekly blood work has been recommended to monitor her liver function closely. Medical History - Kidney cancer - Elevated liver enzymes, requiring hospitalization and steroid treatment Medications and Supplements - Axitinib (Inlyta) - Stopped due to suspected liver enzyme elevation - Immunotherapy - Stopped due to suspected liver enzyme elevation - Steroids - Used for liver enzyme elevation - Recently discontinued - Blood pressure medication - Vitamin ONCOLOGY HISTORY: DIAGNOSIS: Malignant neoplasm of upper-outer quadrant of left female breast [ICD10] C50.412; Malignant neoplasm of left kidney, except renal pelvis [ICD10] C64.2 #1 lung lesions likely metastatic disease from breast cancer or renal cancer #2 history of stage IIIc, (PT2N3A) ER positive, IN positive, HER-2/sofiya negative 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 Status post modified radical mastectomy (06/20/2019). S/p 4 cycles of TC chemotherapy. 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 pT2, PN X. DATE OF DIAGNOSIS: 02/04/2024 STAGE/TNM: M1 metastatic clear-cell renal cell cancer on axitinib and Keytruda Also history of stage III ER/IN positive HER2 negative invasive lobular left breast cancer s/p mastectomy chemotherapy and on exemestane TREATMENT HISTORY: Care?Plan Start?Date Cycle Day Intent DOCEtaxel?75,?Cyclophosphamide?600?-?Adj 07/28/2019 1 21 Curative?(adjuvant) Axitinib?and?Pembrolizumab 03/02/2024 1 21 Palliative HISTORY OF PRESENT ILLNESS: Lenard Winters is a 69-year-old woman who have a history of breast cancer and renal cancer. Patient was initially diagnosed with the breast cancer as below ? 12/13/2018: Patient had bilateral screening mammograms which caused the suspicion for left-sided breast cancer. 03/31/2019: Patient saw radiation oncologist Dr. Aaron Reyes [facility]. 04/07/2019: Patient saw Dr. Camden Ely who is planning on doing surgery near future. 05/18/2019: Patient had a left breast lumpectomy and sentinel lymph node biopsy. 05/26/2019: MRI of the breast. Left breast showed findings consistent with postsurgical seroma in the left breast as well as in left axilla. Right breast MRI was reportedly negative. 06/10/2019: DEXA scan?There is osteopenia based on lumbar spine measurements. There is osteopenia based on hip measurements Lumbar mineralization is increased 4.9% compared with June 13, 2014. Hip mineralization is increased 3.2% compared with June 13, 2014 06/20/2019: Left breast modified radical mastectomy? 07/08/2019: PET CT scan?Postsurgical changes left breast No mediastinal, axillary adenopathy. No pulmonary nodules 7 cm left renal mass worrisome for renal cell carcinoma. Recommend MRI abdomen/kidneys follow-up, pre and postcontrast. Non hypermetabolic 9 mm focal sclerosis left sacral wing Consider whole-body bone scan follow-up 07/28/2019? 09/29/2019: Patient had 4 cycles of TC chemotherapy in the adjuvant setting. 11/15/2019: Left nephrectomy. 12/07/2019?03/20/2020: Patient took anastrozole 1 mg p.o. daily in the adjuvant setting. Anastrozole discontinued due to body aches. 12/14/2019?02/08/2020: Patient received 5040 cGy radiation therapy to the left chest wall. 02/27/2020: CT scan of the abdomen and pelvis with and without contrast? 03/20/2020: Anastrozole discontinued due to body aches. Patient was started on Aromasin 25 mg p.o. daily. 06/08/2020: Esophagogastroduodenoscopy with biopsy? 07/04/2020: Patient had colonoscopy done by Dr. Gore. 08/27/2020: CT scan of the abdomen/pelvis with and without contrast? 03/13/2021: Right breast mammogram: BI-RADS Category 1: Negative findings. 03/07/2022: Bone density test? At the last visit patient was noted to have lung nodules which were biopsied. 02/04/[address]-guided needle biopsy shows metastatic clear-cell renal cell cancer. 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 albuterol - 90 mcg/actuation As needed 2. levothyroxine - 50 mcg 1 tab Daily 3. losartan-hydrochlorothiazide - 50-12.5 mg 1 tab Daily 4. Renal-Maurice - 0.8 mg 1 tab Daily Medications Last Reconciled by Nancy Canada MA on 09/28/2024 (Reconcile on Approval: ?) ALLERGIES: No Known Drug Allergies REVIEW OF SYSTEMS: A complete 14-point review of systems was performed and is negative except as noted in interval history. PHYSICAL EXAMINATION: VITAL SIGNS: Temperature?98, B/P?137/86, Oxygen?Saturation?98% PAIN: 0 - No pain ECOG Performance Status: 0 - Asymptomatic and fully active Conjunctive is white neck is supple. No adenopathy in the neck axilla or in the inguinal region. Chest clear to auscultation. No wheezes or rails audible. CVS rhythm regular. Abdomen is soft. Extremities no clubbing or cyanosis noted. LABORATORY DATA: I have personally reviewed and interpreted each of the patient?s relevant lab tests, abnormal findings are below: Date 09/27/24 11/15/24 ??WHITE?BLOOD?COUNT?(Thou/mm3) 6.0 4.5 ??RED?BLOOD?COUNT?(Miln/mm3) 3.94?L 4.43 ??HEMOGLOBIN?(gm/dl) 11.6?L 12.2 ??HEMATOCRIT?(%) 34.6?L 36.8 ??PLATELET?COUNT?(Thou/mm3) 251 233 ??NEUTROPHILS?%,?AUTO?(%) 72 65 ??LYMPH?%,?AUTO?(%) 16 22 ??NEUTROPHILS,?AUTO?(Thou/mm3) 4.3 2.9 ??GLUCOSE,RANDOM?(mg/dL) 120?H 103 ??BLOOD?UREA?NITROGEN?(mg/dL) 14 12 ??CREATININE?(mg/dL) 1.00 0.90 ??SODIUM?(mmol/L) 139 142 ??POTASSIUM?(mmol/L) 3.1?L 3.6 ??CHLORIDE?(mmol/L) 101 107 ??CrCl?(CandG)?(ml/min) 57.41 62.78 ??AST/SGOT?(Unit/L) 49?H 48?H ??ALT/SGPT?(Unit/L) 19 22 ??ALKALINE?PHOSPHATASE?(Unit/L) 59 61 ??BILIRUBIN,?TOTAL?(mg/dL) 0.9 0.4 ??PROTEIN?TOTAL?(gm/dl) 5.6?L 5.7 ??ALBUMIN,?SERUM?(gm/dl) 4.0 3.8 ??GLOBULIN?(gm/dl) 1.6?L 1.9?L ??ALBUMIN/GLOBULIN?RATIO 2.5?H 2.0 ??CALCIUM,?SERUM?(mg/dL) 9.3 8.9 ??CALCIUM?SERUM?(CORRECTED)?(mg/dL) 9.3 9.1 ASSESSMENT/PLAN: Doc Meyer, a patient with a history of liver failure and recent steroid treatment, presents with worsening metastatic disease as evidenced by recent PET scan results. Metastatic Cancer Patient with renal cancer and was initially treated with Keytruda and axitinib. 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 Patient was seen at [facility] and recommendation initially was to do metastatic ectomy. Patient's recent PET PET scan showed progression of disease and recommendation is to give a trial of immunotherapy. Assessment: Patient's recent PET scan shows progression of metastatic disease. Compared to previous imaging, there is an increase in size of a metastatic lymph node from 17mm to 27mm, and a pulmonary mass has grown from 17mm to 28mm. No liver metastases were noted. The patient's weight has decreased from 152 lbs to 146 lbs after completing steroid treatment, which had caused fluid retention and a puffy appearance. Plan: - Initiate immunotherapy treatment Recent Liver Failure Assessment: Patient has a history of liver failure with previously elevated liver enzymes (AST/ALT of 717). The liver failure was potentially associated with previous treatment (possibly Leita, which was discontinued). Current liver function is not explicitly mentioned, but there are no liver metastases on recent imaging. 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 We also discussed the option of no treatment and the possibility of clinical trial participation, if applicable. All questions were addressed, and they demonstrated understanding. They provided informed consent to proceed with the proposed plan of care. BILLING AND COMPLIANCE: I reviewed external records from providers outside my specialty as summarized above. I spent a total of 50 minutes on this patient?s care on the day of their visit excluding time spent related to any billed procedures. This time includes time spent with the patient as well as time spent documenting in the medical record, reviewing patients records and tests, obtaining history, placing orders, communicating with other healthcare professionals, counseling the patient, family or caregiver, and/or care coordination for the diagnoses above. Electronically Signed by: {Object.Sanct_ID*PnP.NameFL@M}, {Object.Sanct_ID*PnP.Suffix@U} D: {Object.Sanct_Date} T: {Object.Sanct_Time} CC: PCP: Mateus Reis Referring: Mateus Reis This document was completed utilizing speech recognition software. Grammatical errors, random word insertions, pronoun errors, and incomplete sentences are an occasional consequence of this system due to software limitations, ambient noise, and hardware issues. Any formal questions or concerns about the content, text or information contained within the body of this dictation should be directly addressed to the provider for clarification.
== END 2024-11-24 23:59 | disposition home or self-care (01) ==
LOC: SCTC 09:19
PROVIDERS: PCP Physician Assistant; Referring Provider Physician Assistant; Visit Provider Internal Medicine Hematology & Oncology
DX: C64.2 Malignant neoplasm of left kidney, except renal pelvis (principal); C50.412 Malignant neoplasm of upper-outer quadrant of left female breast; C77.0 Secondary and unspecified malignant neoplasm of lymph nodes of head, face and neck; C78.02 Secondary malignant neoplasm of left lung; Z17.0 Estrogen receptor positive status [ER+]; Z17.21 Progesterone receptor positive status; Z17.32 Human epidermal growth factor receptor 2 negative status; Z90.5 Acquired absence of kidney; Z90.12 Acquired absence of left breast and nipple; Z79.811 Long term (current) use of aromatase inhibitors
CPT/HCPCS: 36591; 80053; 84443; 85025; 99212; A4216; J1642; G0463

== ENCOUNTER 2024-12-19 10:28 | Outpatient (RCR) | payer MEDICARE, MEDICAID, SELFPAY ==
[2024-12-02 12:03] LABS: Basophils # (Auto) 0.0 Thou/mm3 (0.0-0.2); Basophils % (Auto) 1 % (0-2.5); Eosinophils # (Auto) 0.0 Thou/mm3 (0.0-0.5); Eosinophils % (Auto) 1 % (0-10); Hematocrit 39.9 % (36.0-46.0); Hemoglobin 12.7 g/dL (12.0-16.0); Immature Granulocytes Auto 0.01 Thou/mm3 (0.00-0.00); Lymphocytes # (Auto) 1.0 Thou/mm3 (1.0-4.8); Lymphocytes % (Auto) 20 % (10-50); Mean Corpuscular HGB Conc 31.8 g/dl (31.0-37.0); Mean Corpuscular Hemoglobin 26.5 pg (25.0-35.0); Mean Corpuscular Volume 83 fL (80-100); Monocytes # (Auto) 0.5 Thou/mm3 (0.0-0.8); Monocytes % (Auto) 10 % (0-12); Neutrophils # (Auto) 3.4 Thou/mm3 (1.8-7.7); Neutrophils % (Auto) 69 % (37-80); Nucleated Red Blood Cell # 0.00 Thou/mm3 (0.00-0.00); Nucleated Red Blood Cell % 0 /100 WBC (0); Platelet Count 236 Thou/mm3 (140-440); RDW Standard Deviation 42.6 fL (36.4-46.3); Red Blood Count 4.80 Miln/mm3 (4.00-5.20); White Blood Count 4.9 Thou/mm3 (3.6-11.0)
[2024-12-02 12:32] LABS: Free T3 2.9 pg/mL (2.3-4.2)
[2024-12-02 12:34] LABS: Alanine Aminotransferase 17 U/L (10-49); Albumin, Serum 4.1 gm/dL (3.4-4.8); Albumin/Globulin Ratio 2.4 (1.2-2.2); Alkaline Phosphatase 62 U/L (46-116); Anion Gap 10 (7-16); Aspartate Amino Transferase 48 U/L (0-34); BUN/Creatinine Ratio 14 Ratio (12-20); Bilirubin,Total 0.5 mg/dL (0.3-1.2); Blood Urea Nitrogen 14 mg/dL (9-23); Calcium 9.0 mg/dL (8.3-10.6); Calcium (Corrected) 9.0 mg/dL (8.5-10.1); Carbon Dioxide 24.6 mMol/L (20.0-31.0); Chloride 105 mMol/L (98-107); Creatinine (Component) 1.0 mg/dL (0.6-1.3); Globulin 1.7 gm/dL (2.3-3.5); Glucose 80 mg/dL (74-106); Osmolality,Calculated 278 (275-295); Potassium 3.8 mMol/L (3.4-5.1); Sodium 140 mMol/L (136-145); Thyroid Stimulating Hormone 1.54 uIU/mL (0.55-4.78); Total Protein 5.8 gm/dL (5.7-8.2); eGFR > 60 See Note
[2024-12-16 09:46] LABS: Basophils # (Auto) 0.0 Thou/mm3 (0.0-0.2); Basophils % (Auto) 1 % (0-2.5); Eosinophils # (Auto) 0.1 Thou/mm3 (0.0-0.5); Eosinophils % (Auto) 1 % (0-10); Hematocrit 38.3 % (36.0-46.0); Hemoglobin 12.3 g/dL (12.0-16.0); Immature Granulocytes Auto 0.01 Thou/mm3 (0.00-0.00); Lymphocytes # (Auto) 0.9 Thou/mm3 (1.0-4.8); Lymphocytes % (Auto) 20 % (10-50); Mean Corpuscular HGB Conc 32.1 g/dl (31.0-37.0); Mean Corpuscular Hemoglobin 26.1 pg (25.0-35.0); Mean Corpuscular Volume 81 fL (80-100); Monocytes # (Auto) 0.6 Thou/mm3 (0.0-0.8); Monocytes % (Auto) 14 % (0-12); Neutrophils # (Auto) 2.9 Thou/mm3 (1.8-7.7); Neutrophils % (Auto) 65 % (37-80); Nucleated Red Blood Cell # 0.00 Thou/mm3 (0.00-0.00); Nucleated Red Blood Cell % 0 /100 WBC (0); Platelet Count 221 Thou/mm3 (140-440); RDW Standard Deviation 43.3 fL (36.4-46.3); Red Blood Count 4.71 Miln/mm3 (4.00-5.20); White Blood Count 4.4 Thou/mm3 (3.6-11.0)
[2024-12-16 09:57] LABS: Free T3 2.6 pg/mL (2.3-4.2)
[2024-12-16 10:00] LABS: Alanine Aminotransferase 15 U/L (10-49); Albumin, Serum 4.0 gm/dL (3.4-4.8); Albumin/Globulin Ratio 2.1 (1.2-2.2); Alkaline Phosphatase 59 U/L (46-116); Anion Gap 11 (7-16); Aspartate Amino Transferase 44 U/L (0-34); BUN/Creatinine Ratio 10 Ratio (12-20); Bilirubin,Total 0.7 mg/dL (0.3-1.2); Blood Urea Nitrogen 11 mg/dL (9-23); Calcium 9.1 mg/dL (8.3-10.6); Calcium (Corrected) 9.1 mg/dL (8.5-10.1); Carbon Dioxide 26.1 mMol/L (20.0-31.0); Chloride 101 mMol/L (98-107); Creatinine (Component) 1.1 mg/dL (0.6-1.3); Globulin 1.9 gm/dL (2.3-3.5); Glucose 99 mg/dL (74-106); Osmolality,Calculated 275 (275-295); Potassium 3.6 mMol/L (3.4-5.1); Sodium 138 mMol/L (136-145); Thyroid Stimulating Hormone 1.67 uIU/mL (0.55-4.78); Total Protein 5.9 gm/dL (5.7-8.2); eGFR 54 See Note
--- NOTE | 2024-12-19 15:40 | CTCFLWUP_ITS ---
Patient: LENARD WINTERS : 1955 Page 7 of 11 FOLLOW UP NOTE DATE OF SERVICE: 12/19/2024 NAME: LENARD WINTERS ACCOUNT: [id number] : 1955 AGE: 69 INTERVAL HISTORY: Patient was started on Keytruda. Patient is doing well and have no complaints. Patient has minimal nausea no constipation. Her weight is stable. No new headache or dizziness. Medical History - Liver failure (resolved) - Weight fluctuations related to steroid treatment Medications and Supplements - Leita - Discontinued. Suspected to be causing liver failure. - Steroid - Caused fluid retention and puffiness. - Discontinued. Patient's weight dropped after stopping. Review of Systems General: Positive for weight loss. Social History - Diet: Patient advised to watch diet and avoid weight gain Chief Complaint Follow-up for liver enzyme levels, monitoring response to medication Medications and Supplements - Inlyta - One tablet daily. - Dose was previously lowered due to therapy. - Prednisone 10 mg - Last taken on Thursday. - Used for managing liver enzyme levels. - Blood pressure medicine Social History - Diet: Patient advised to watch diet and avoid weight gain Chief Complaint Follow-up for liver enzyme levels, monitoring response to medication History of Present Illness Doc Meyer, a patient with kidney cancer, presents for follow-up regarding her liver enzyme levels and medication management. The patient had previously experienced elevated liver enzymes, which led to the discontinuation of her immunotherapy and axitinib (Inlyta) treatment. The patient's liver enzymes have now normalized after stopping the medications and starting steroids. The improvement was noted immediately after initiating the steroid treatment. However, when the immunotherapy was restarted, the liver enzymes began to increase again. Due to this recurrence, the decision was made to stop all medications, including steroids, for a month to observe the patient's response. The patient has been referred to [place] for a second opinion, with the referral approved on August 04. This consultation aims to help determine the best course of treatment, given the complications with liver enzymes. The patient has also been seen by a doctor in [place], though no further details ab out this visit were provided. Currently, the patient is off all cancer-related medications and steroids. She is continuing only her blood pressure medication and vitamins. Weekly blood work has been recommended to monitor her liver function closely. Medical History - Kidney cancer - Elevated liver enzymes, requiring hospitalization and steroid treatment Medications and Supplements - Axitinib (Inlyta) - Stopped due to suspected liver enzyme elevation - Immunotherapy - Stopped due to suspected liver enzyme elevation - Steroids - Used for liver enzyme elevation - Recently discontinued - Blood pressure medication - Vitamin ONCOLOGY HISTORY: DIAGNOSIS: Malignant neoplasm of upper-outer quadrant of left female breast [ICD10] C50.412; Malignant neoplasm of left kidney, except renal pelvis [ICD10] C64.2 #1 lung lesions likely metastatic disease from breast cancer or renal cancer #2 history of stage IIIc, (PT2N3A) ER positive, ID positive, HER-2/sofiya negative 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 Status post modified radical mastectomy (06/20/2019). S/p 4 cycles of TC chemotherapy. 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 pT2, PN X. DATE OF DIAGNOSIS: 02/04/2024 STAGE/TNM: M1 metastatic clear-cell renal cell cancer on axitinib and Keytruda Also history of stage III ER/ID positive HER2 negative invasive lobular left breast cancer s/p mastectomy chemotherapy and on exemestane TREATMENT HISTORY: Care?Plan Start?Date Cycle Day Intent DOCEtaxel?75,?Cyclophosphamide?600?-?Adj 07/28/2019 1 21 Curative?(adjuvant) Axitinib?and?Pembrolizumab 03/02/2024 1 21 Palliative HISTORY OF PRESENT ILLNESS: Lenard Winters is a 69-year-old woman who have a history of breast cancer and renal cancer. Patient was initially diagnosed with the breast cancer as below ? 12/13/2018: Patient had bilateral screening mammograms which caused the suspicion for left-sided breast cancer. 03/31/2019: Patient saw radiation oncologist Dr. Aaron Reyes here at the cancer center. 04/07/2019: Patient saw Dr. Camden Ely who is planning on doing surgery near future. 05/18/2019: Patient had a left breast lumpectomy and sentinel lymph node biopsy. 05/26/2019: MRI of the breast. Left breast showed findings consistent with postsurgical seroma in the left breast as well as in left axilla. Right breast MRI was reportedly negative. 06/10/2019: DEXA scan?There is osteopenia based on lumbar spine measurements. There is osteopenia based on hip measurements Lumbar mineralization is increased 4.9% compared with June 13, 2014. Hip mineralization is increased 3.2% compared with June 13, 2014 06/20/2019: Left breast modified radical mastectomy? 07/08/2019: PET CT scan?Postsurgical changes left breast No mediastinal, axillary adenopathy. No pulmonary nodules 7 cm left renal mass worrisome for renal cell carcinoma. Recommend MRI abdomen/kidneys follow-up, pre and postcontrast. Non hypermetabolic 9 mm focal sclerosis left sacral wing Consider whole-body bone scan follow-up 07/28/2019? 09/29/2019: Patient had 4 cycles of TC chemotherapy in the adjuvant setting. 11/15/2019: Left nephrectomy. 12/07/2019?03/20/2020: Patient took anastrozole 1 mg p.o. daily in the adjuvant setting. Anastrozole discontinued due to body aches. 12/14/2019?02/08/2020: Patient received 5040 cGy radiation therapy to the left chest wall. 02/27/2020: CT scan of the abdomen and pelvis with and without contrast? 03/20/2020: Anastrozole discontinued due to body aches. Patient was started on Aromasin 25 mg p.o. daily. 06/08/2020: Esophagogastroduodenoscopy with biopsy? 07/04/2020: Patient had colonoscopy done by Dr. Gore. 08/27/2020: CT scan of the abdomen/pelvis with and without contrast? 03/13/2021: Right breast mammogram: BI-RADS Category 1: Negative findings. 03/07/2022: Bone density test? At the last visit patient was noted to have lung nodules which were biopsied. 02/04/[address]-guided needle biopsy shows metastatic clear-cell renal cell cancer. OTHER MEDICAL HISTORY/CONDITIONS: FAMILY HISTORY: SOCIAL HISTORY: SU[employer] HISTORY: MEDICATIONS: 1. albuterol - 90 mcg/actuation As needed 2. levothyroxine - 50 mcg 1 tab Daily 3. losartan-hydrochlorothiazide - 50-12.5 mg 1 tab Daily 4. Renal-Maurice - 0.8 mg 1 tab Daily Medications Last Reconciled by Lenard Butler MD on 12/19/2024 ALLERGIES: No Known Drug Allergies REVIEW OF SYSTEMS: A complete 14-point review of systems was performed and is negative except as noted in interval history. PHYSICAL EXAMINATION: VITAL SIGNS: Temperature?97.2, B/P?110/74, Oxygen?Saturation?96% Weight?143?lbs (Change?since?12/16/24:?-0.6?lbs) PAIN: 0 - No pain ECOG Performance Status: None Conjunctive is white neck is supple. No adenopathy in the neck axilla or in the inguinal region. Chest clear to auscultation. No wheezes or rails audible. CVS rhythm regular. Abdomen is soft. Extremities no clubbing or cyanosis noted. LABORATORY DATA: I have personally reviewed and interpreted each of the patient?s relevant lab tests, abnormal findings are below: Date 12/02/24 12/16/24 ??WHITE?BLOOD?COUNT?(Thou/mm3) 4.9 4.4 ??RED?BLOOD?COUNT?(Miln/mm3) 4.80 4.71 ??HEMOGLOBIN?(gm/dl) 12.7 12.3 ??HEMATOCRIT?(%) 39.9 38.3 ??PLATELET?COUNT?(Thou/mm3) 236 221 ??NEUTROPHILS?%,?AUTO?(%) 69 65 ??LYMPH?%,?AUTO?(%) 20 20 ??NEUTROPHILS,?AUTO?(Thou/mm3) 3.4 2.9 ??GLUCOSE,RANDOM?(mg/dL) 80 99 ??BLOOD?UREA?NITROGEN?(mg/dL) 14 11 ??CREATININE?(mg/dL) 1.00 1.10 ??SODIUM?(mmol/L) 140 138 ??POTASSIUM?(mmol/L) 3.8 3.6 ??CHLORIDE?(mmol/L) 105 101 ??CrCl?(CandG)?(ml/min) 54.52 49.63 ??AST/SGOT?(Unit/L) 48?H 44?H ??ALT/SGPT?(Unit/L) 17 15 ??ALKALINE?PHOSPHATASE?(Unit/L) 62 59 ??BILIRUBIN,?TOTAL?(mg/dL) 0.5 0.7 ??PROTEIN?TOTAL?(gm/dl) 5.8 5.9 ??ALBUMIN,?SERUM?(gm/dl) 4.1 4.0 ??GLOBULIN?(gm/dl) 1.7?L 1.9?L ??ALBUMIN/GLOBULIN?RATIO 2.4?H 2.1 ??CALCIUM,?SERUM?(mg/dL) 9.0 9.1 ??CALCIUM?SERUM?(CORRECTED)?(mg/dL) 9.0 9.1 ASSESSMENT/PLAN: Doc Meyer, a patient with a history of liver failure and recent steroid treatment, presents with worsening metastatic disease as evidenced by recent PET scan results. Metastatic Cancer Patient with renal cancer and was initially treated with Keytruda and axitinib. 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 Patient was seen at [place] and recommendation initially was to do metastatic ectomy. Patient's recent PET PET scan showed progression of disease and recommendation is to give a trial of immunotherapy. Assessment: Patient's recent PET scan shows progression of metastatic disease. Compared to previous imaging, there is an increase in size of a metastatic lymph node from 17mm to 27mm, and a pulmonary mass has grown from 17mm to 28mm. No liver metastases were noted. The patient's weight has decreased from 152 lbs to 146 lbs after completing steroid treatment, which had caused fluid retention and a puffy appearance. Plan: Continue immunotherapy Recent Liver Failure Assessment: Patient has a history of liver failure with previously elevated liver enzymes (AST/ALT of 717). The liver failure was potentially associated with previous treatment (possibly Leita, which was discontinued). Current liver function is not explicitly mentioned, but there are no liver metastases on recent imaging. Plan: - Monitor liver function during immunotherapy treatment Labs are stable ORDERS: Order # Description [id number] MRI + Brain + With W/O Contrast [id number] CBC + Comprehensive Metabolic Panel [id number] Lab Appointment [id number] Follow Up Appointment [id number] CBC + Comprehensive Metabolic Panel [id number] Lab Appointment [id number] Follow Up Appointment [id number] PET/CT of Skull to mid-thigh for Restaging [id number] Comprehensive Metabolic Panel - 12 + CBC with Auto Diff + Follow Up 2 Months [id number] CBC + Comprehensive Metabolic Panel [id number] Lab Appointment [id number] Follow Up Appointment [id number] CBC + Comprehensive Metabolic Panel [id number] Lab Appointment [id number] Follow Up Appointment [id number] CBC + Comprehensive Metabolic Panel [id number] Lab Appointment [id number] Follow Up Appointment [id number] CBC + Comprehensive Metabolic Panel [id number] Lab Appointment [id number] Follow Up Appointment [id number] CBC + Comprehensive Metabolic Panel [id number] Lab Appointment [id number] Follow Up Appointment [id number] CBC + Comprehensive Metabolic Panel [id number] Lab Appointment [id number] Follow Up Appointment RETURN TO CLINIC: I reviewed the diagnosis, prognosis, and recommended treatment/procedure options with the patient (and/or their legal registered representative), including the potential benefits, risks, side effects and alternative therapies. We also discussed the option of no treatment and the possibility of clinical trial participation, if applicable. All questions were addressed, and they demonstrated understanding. They provided informed consent to proceed with the proposed plan of care. BILLING AND COMPLIANCE: I reviewed external records from providers outside my specialty as summarized above. I spent a total of 50 minutes on this patient?s care on the day of their visit excluding time spent related to any billed procedures. This time includes time spent with the patient as well as time spent documenting in the medical record, reviewing patients records and tests, obtaining history, placing orders, communicating with other healthcare professionals, counseling the patient, family or caregiver, and/or care coordination for the diagnoses above. Electronically Signed by: {Object.Sanct_ID*PnP.NameFL@M}, {Object.Sanct_ID*PnP.Suffix@U} D: {Object.Sanct_Date} T: {Object.Sanct_Time} CC: PCP: Mateus Reis Referring: Mateus Reis This document was completed utilizing speech recognition software. Grammatical errors, random word insertions, pronoun errors, and incomplete sentences are an occasional consequence of this system due to software limitations, ambient noise, and hardware issues. Any formal questions or concerns about the content, text or information contained within the body of this dictation should be directly addressed to the provider for clarification.
== END 2024-12-25 23:59 | disposition home or self-care (01) ==
LOC: SCTC 10:28
PROVIDERS: PCP Physician Assistant; Referring Provider Physician Assistant; Visit Provider Internal Medicine Hematology & Oncology
DX: Z51.12 Encounter for antineoplastic immunotherapy (principal); C50.412 Malignant neoplasm of upper-outer quadrant of left female breast; C64.2 Malignant neoplasm of left kidney, except renal pelvis; Z17.0 Estrogen receptor positive status [ER+]; Z17.21 Progesterone receptor positive status; Z17.32 Human epidermal growth factor receptor 2 negative status; Z90.12 Acquired absence of left breast and nipple; C77.0 Secondary and unspecified malignant neoplasm of lymph nodes of head, face and neck; C78.02 Secondary malignant neoplasm of left lung
CPT/HCPCS: 36591; 80053; 84443; 84481; 85025; 96413; 99212; A4216; J1642; J7040; J7050; J9271; G0463

== ENCOUNTER 2025-01-17 13:05 | Outpatient (RCR) | payer MEDICARE, MEDICAID, SELFPAY ==
[2024-12-27 13:48] LABS: Basophils # (Auto) 0.0 Thou/mm3 (0.0-0.2); Basophils % (Auto) 1 % (0-2.5); Eosinophils # (Auto) 0.1 Thou/mm3 (0.0-0.5); Eosinophils % (Auto) 1 % (0-10); Hematocrit 37.9 % (36.0-46.0); Hemoglobin 12.4 g/dL (12.0-16.0); Immature Granulocytes Auto 0.01 Thou/mm3 (0.00-0.00); Lymphocytes # (Auto) 1.0 Thou/mm3 (1.0-4.8); Lymphocytes % (Auto) 18 % (10-50); Mean Corpuscular HGB Conc 32.7 g/dl (31.0-37.0); Mean Corpuscular Hemoglobin 26.0 pg (25.0-35.0); Mean Corpuscular Volume 80 fL (80-100); Monocytes # (Auto) 0.7 Thou/mm3 (0.0-0.8); Monocytes % (Auto) 12 % (0-12); Neutrophils # (Auto) 3.9 Thou/mm3 (1.8-7.7); Neutrophils % (Auto) 68 % (37-80); Nucleated Red Blood Cell # 0.00 Thou/mm3 (0.00-0.00); Nucleated Red Blood Cell % 0 /100 WBC (0); Platelet Count 258 Thou/mm3 (140-440); RDW Standard Deviation 43.7 fL (36.4-46.3); Red Blood Count 4.77 Miln/mm3 (4.00-5.20); White Blood Count 5.7 Thou/mm3 (3.6-11.0)
[2024-12-27 14:09] LABS: Alanine Aminotransferase 19 U/L (10-49); Albumin, Serum 3.9 gm/dL (3.4-4.8); Albumin/Globulin Ratio 2.4 (1.2-2.2); Alkaline Phosphatase 59 U/L (46-116); Anion Gap 10 (7-16); Aspartate Amino Transferase 46 U/L (0-34); BUN/Creatinine Ratio 14 Ratio (12-20); Bilirubin,Total 0.6 mg/dL (0.3-1.2); Blood Urea Nitrogen 14 mg/dL (9-23); Calcium 9.7 mg/dL (8.3-10.6); Calcium (Corrected) 9.8 mg/dL (8.5-10.1); Carbon Dioxide 25.7 mMol/L (20.0-31.0); Chloride 98 mMol/L (98-107); Creatinine (Component) 1.0 mg/dL (0.6-1.3); Free T3 2.4 pg/mL (2.3-4.2); Globulin 1.6 gm/dL (2.3-3.5); Glucose 92 mg/dL (74-106); Osmolality,Calculated 268 (275-295); Potassium 3.9 mMol/L (3.4-5.1); Sodium 134 mMol/L (136-145); Thyroid Stimulating Hormone 1.44 uIU/mL (0.55-4.78); Total Protein 5.5 gm/dL (5.7-8.2); eGFR > 60 See Note
[2025-01-16 16:19] LABS: Basophils # (Auto) 0.0 Thou/mm3 (0.0-0.2); Basophils % (Auto) 0 % (0-2.5); Eosinophils # (Auto) 0.1 Thou/mm3 (0.0-0.5); Eosinophils % (Auto) 2 % (0-10); Hematocrit 37.1 % (36.0-46.0); Hemoglobin 12.1 g/dL (12.0-16.0); Immature Granulocytes Auto 0.01 Thou/mm3 (0.00-0.00); Lymphocytes # (Auto) 1.0 Thou/mm3 (1.0-4.8); Lymphocytes % (Auto) 27 % (10-50); Mean Corpuscular HGB Conc 32.6 g/dl (31.0-37.0); Mean Corpuscular Hemoglobin 25.8 pg (25.0-35.0); Mean Corpuscular Volume 79 fL (80-100); Monocytes # (Auto) 0.7 Thou/mm3 (0.0-0.8); Monocytes % (Auto) 19 % (0-12); Neutrophils # (Auto) 1.9 Thou/mm3 (1.8-7.7); Neutrophils % (Auto) 52 % (37-80); Nucleated Red Blood Cell # 0.00 Thou/mm3 (0.00-0.00); Nucleated Red Blood Cell % 0 /100 WBC (0); Platelet Count 256 Thou/mm3 (140-440); RDW Standard Deviation 47.0 fL (36.4-46.3); Red Blood Count 4.69 Miln/mm3 (4.00-5.20); White Blood Count 3.7 Thou/mm3 (3.6-11.0)
[2025-01-16 16:39] LABS: Alanine Aminotransferase 17 U/L (10-49); Albumin, Serum 3.7 gm/dL (3.4-4.8); Albumin/Globulin Ratio 2.2 (1.2-2.2); Alkaline Phosphatase 57 U/L (46-116); Anion Gap 9 (7-16); Aspartate Amino Transferase 46 U/L (0-34); BUN/Creatinine Ratio 11 Ratio (12-20); Bilirubin,Total 0.7 mg/dL (0.3-1.2); Blood Urea Nitrogen 12 mg/dL (9-23); Calcium 9.1 mg/dL (8.3-10.6); Calcium (Corrected) 9.3 mg/dL (8.5-10.1); Carbon Dioxide 26.9 mMol/L (20.0-31.0); Chloride 100 mMol/L (98-107); Creatinine (Component) 1.1 mg/dL (0.6-1.3); Free T3 2.7 pg/mL (2.3-4.2); Globulin 1.7 gm/dL (2.3-3.5); Glucose 86 mg/dL (74-106); Osmolality,Calculated 270 (275-295); Potassium 3.3 mMol/L (3.4-5.1); Sodium 136 mMol/L (136-145); Thyroid Stimulating Hormone 1.26 uIU/mL (0.55-4.78); Total Protein 5.4 gm/dL (5.7-8.2); eGFR 54 See Note
== END 2025-01-24 23:59 | disposition home or self-care (01) ==
LOC: SCTC 13:05
PROVIDERS: PCP Physician Assistant; Referring Provider Physician Assistant; Visit Provider Internal Medicine Hematology & Oncology
DX: Z51.12 Encounter for antineoplastic immunotherapy (principal); C50.412 Malignant neoplasm of upper-outer quadrant of left female breast; C64.2 Malignant neoplasm of left kidney, except renal pelvis; C77.0 Secondary and unspecified malignant neoplasm of lymph nodes of head, face and neck; C78.02 Secondary malignant neoplasm of left lung; Z90.5 Acquired absence of kidney; Z17.0 Estrogen receptor positive status [ER+]; Z17.21 Progesterone receptor positive status; Z17.32 Human epidermal growth factor receptor 2 negative status; Z90.12 Acquired absence of left breast and nipple; Z79.811 Long term (current) use of aromatase inhibitors; R74.01 Elevation of levels of liver transaminase levels
CPT/HCPCS: 80053; 84443; 84481; 85025; 96360; 96413; A4216; J1642; J3490; J7030; J7040; J9271

== ENCOUNTER → 2025-02-06 | Outpatient (CLI) | payer MEDICARE, MEDICAID, SELFPAY ==
--- NOTE | 2025-02-06 10:15 | XR_ITS ---
Examination: MRI of brain without intravenous contrast. MRI brain with intravenous contrast. Date and time of exam: February 06, 2025, 11:40 a.m., comparison March 03, 2024 INDICATIONS: Diagnosis malignant neoplasm of upper-outer quadrant of left female breast, malignant neoplasm of left kidney except renal pelvis secondary malignant neoplasm of lung, restaging Technique: Multiple axial and sagittal images of the brain to been obtained. Siemens high-resolution 1.52 Coleen short bore scanner utilized. Sagittal sections, T1 weighted images, TR 500, TE 14, are performed. Axial sections proton-density and T2-weighted images have been obtained. Inversion recovery axial images, TR 9260, TE 111, TR 2500. Diffusion weighted images, axial sections, TR 4800, TE 128, B value 1000. Axial sections, ADC map, TR 4800, TE 128. Axial and coronal images were also obtained post 12 cc gadolinium administered intravenously. Findings:: Enlargement of the sella turcica is not present. The optic chiasm and infundibular stalk are not remarkable. There is no localized enlargement of the medulla or nelly. Fourth ventricle and cerebellar tonsils appear normal in position. No subacute area of hemorrhage density is seen. Fourth ventricle is midline. Mass in the cerebellopontine angle region is not evident. 7th and 8th nerve complexes exhibit symmetry Globes are symmetrical Orbital musculature including medial lateral rectus muscles do not exhibit abnormality Increased white matter signal is moderate Effacement of the cortical sulcal markings is not identified. Mass effect upon the ventricular system is not identified. Diffusion-weighted images demonstrate no focus of restricted diffusion Contrast images demonstrate no abnormal enhancing cerebellar or cerebral lesions Impression: Negative for acute hemorrhage mass effect or midline shift No acute infarct No abnormal enhancing cerebellar or cerebral lesions
[2025-02-06 15:08] LABS: Thyroid Stimulating Hormone 1.80 uIU/mL (0.55-4.78)
[2025-02-10 06:21] LABS: T3,Total* 100 ng/dL (76-181)
== END | disposition home or self-care (01) ==
PROVIDERS: PCP Family Medicine; Referring Provider Internal Medicine Hematology & Oncology; Visit Provider Internal Medicine Hematology & Oncology
DX: C50.412 Malignant neoplasm of upper-outer quadrant of left female breast (principal); C64.2 Malignant neoplasm of left kidney, except renal pelvis; C78.02 Secondary malignant neoplasm of left lung
CPT/HCPCS: 36415; 70553; 84443; 84480; A9577

== ENCOUNTER → 2025-02-28 | Outpatient (CLI) | payer MEDICARE, MEDICAID, SELFPAY ==
--- NOTE | 2025-02-28 10:15 | XR_ITS ---
EXAMINATION: PET/CT FUSION SKULL TO THIGH EXAM DATE AND TIME: February 28, 2025, 1047 hours, comparison PET/CT scan November 01, 2024, PET/CT scan June 09, 2024, CT chest June 06, 2024 INDICATIONS: Diagnosis basal cell skin cancer, PET/CT scan primary 2024 17 mm hypermetabolic pulmonary nodule left apex, 21 mm non-hypermetabolic pulmonary nodule left upper lobe High left mediastinal hypermetabolic pulmonary mass 4.5 x 2.7 cm, interval 17 mm retroclavicular hypermetabolic metastatic lymph node, enlarging hypermetabolic mass left apex 27 mm, enlarging hypermetabolic pulmonary mass 28 mm left upper lobe Hypermetabolic left high para-aortic mediastinal lymphadenopathy 6.7 cm, 39 mm hypermetabolic right hilar lymphadenopathy on PET/CT scan November 01, 2024 CTDI:vol (mGy) 4.04 DLP: (mGycm) 318.93 PROCEDURE: 16.4 mCi FDG was administered intravenously To allow for distribution and uptake of radiotracer, the patient was allowed to rest quietly in a shielded room. Imaging was performed on an integrated 16-slice PET/CT scanner, with scanning from the skull base to the mid thigh. Serum blood glucose at the time of the injection was measured 104 mg/dL. CT scanning was performed without oral or intravenous contrast material. FINDINGS: Head and Neck: There is no jonathan hypermetabolism in the neck. The visualized portions of the brain are normal in appearance on CT. Chest: 33 mm hypermetabolic mass left apex compared to 27 mm on November 01, 2024 The 17 mm retroclavicular hypermetabolic right metastatic lymph node noted on November 01, 2024 is not identified on the current study The high left periaortic hypermetabolic lymphadenopathy measures 8.8 cm in maximum transverse dimension compared to 6.7 cm on November 01, 2024 The hypermetabolic right hilar lymphadenopathy on November 01, 2024 is not visualized on the current study 28 mm hypermetabolic pulmonary nodule left upper lobe compared to 28 mm on November 01, 2024 Abdomen and Pelvis: There appears to be extensive hypermetabolic bowel in the abdomen on the current study Musculoskeletal: Marrow uptake is within normal range. IMPRESSION: 33 mm hypermetabolic mass left apex compared to 27 mm on PET/CT November 01, 2024 The 17 mm retroclavicular right hypermetabolic lymph node on PET/CT November 01, 2024 is not identified on current study The hide left periaortic hypermetabolic lymphadenopathy measures 8.8 cm in maximum transverse dimension compared to 6.7 cm on PET/CT November 01, 2024 The hypermetabolic right hilar lymphadenopathy on PET/CT scan November 01, 2024 is not currently visualized 28 mm hypermetabolic pulmonary nodule left upper lobe compares to 28 mm on PET/CT scan November 01, 2024
== END | disposition home or self-care (01) ==
PROVIDERS: PCP Family Medicine; Referring Provider Internal Medicine Hematology & Oncology; Visit Provider Internal Medicine Hematology & Oncology
DX: R22.2 Localized swelling, mass and lump, trunk (principal); R59.0 Localized enlarged lymph nodes; R91.1 Solitary pulmonary nodule; C50.412 Malignant neoplasm of upper-outer quadrant of left female breast; C64.2 Malignant neoplasm of left kidney, except renal pelvis; C78.02 Secondary malignant neoplasm of left lung
CPT/HCPCS: 78815; A9552

== ENCOUNTER 2025-03-21 10:30 | Outpatient (RCR) | payer MEDICARE, MEDICAID, SELFPAY ==
[2025-02-27 16:18] LABS: Basophils # (Auto) 0.0 Thou/mm3 (0.0-0.2); Basophils % (Auto) 1 % (0-2.5); Eosinophils # (Auto) 0.1 Thou/mm3 (0.0-0.5); Eosinophils % (Auto) 3 % (0-10); Hematocrit 38.0 % (36.0-46.0); Hemoglobin 12.3 g/dL (12.0-16.0); Immature Granulocytes Auto 0.01 Thou/mm3 (0.00-0.00); Lymphocytes # (Auto) 0.9 Thou/mm3 (1.0-4.8); Lymphocytes % (Auto) 18 % (10-50); Mean Corpuscular HGB Conc 32.4 g/dl (31.0-37.0); Mean Corpuscular Hemoglobin 27.0 pg (25.0-35.0); Mean Corpuscular Volume 83 fL (80-100); Monocytes # (Auto) 0.5 Thou/mm3 (0.0-0.8); Monocytes % (Auto) 10 % (0-12); Neutrophils # (Auto) 3.3 Thou/mm3 (1.8-7.7); Neutrophils % (Auto) 68 % (37-80); Nucleated Red Blood Cell # 0.00 Thou/mm3 (0.00-0.00); Nucleated Red Blood Cell % 0 /100 WBC (0); Platelet Count 252 Thou/mm3 (140-440); RDW Standard Deviation 55.1 fL (36.4-46.3); Red Blood Count 4.56 Miln/mm3 (4.00-5.20); White Blood Count 4.9 Thou/mm3 (3.6-11.0)
[2025-02-27 16:27] LABS: Alanine Aminotransferase 20 U/L (10-49); Albumin, Serum 3.8 gm/dL (3.4-4.8); Albumin/Globulin Ratio 2.4 (1.2-2.2); Alkaline Phosphatase 51 U/L (46-116); Anion Gap 13 (7-16); Aspartate Amino Transferase 67 U/L (0-34); BUN/Creatinine Ratio 10 Ratio (12-20); Bilirubin,Total 0.5 mg/dL (0.3-1.2); Blood Urea Nitrogen 9 mg/dL (9-23); Calcium 9.3 mg/dL (8.3-10.6); Calcium (Corrected) 9.5 mg/dL (8.5-10.1); Carbon Dioxide 25.3 mMol/L (20.0-31.0); Chloride 103 mMol/L (98-107); Creatinine (Component) 0.9 mg/dL (0.6-1.3); Free T3 2.7 pg/mL (2.3-4.2); Globulin 1.6 gm/dL (2.3-3.5); Glucose 96 mg/dL (74-106); Osmolality,Calculated 279 (275-295); Potassium 3.4 mMol/L (3.4-5.1); Sodium 141 mMol/L (136-145); Thyroid Stimulating Hormone 1.50 uIU/mL (0.55-4.78); Total Protein 5.4 gm/dL (5.7-8.2); eGFR > 60 See Note
[2025-03-20 12:48] LABS: Basophils # (Auto) 0.1 Thou/mm3 (0.0-0.2); Basophils % (Auto) 1 % (0-2.5); Eosinophils # (Auto) 0.3 Thou/mm3 (0.0-0.5); Eosinophils % (Auto) 7 % (0-10); Hematocrit 37.7 % (36.0-46.0); Hemoglobin 12.3 g/dL (12.0-16.0); Immature Granulocytes Auto 0.01 Thou/mm3 (0.00-0.00); Lymphocytes # (Auto) 0.9 Thou/mm3 (1.0-4.8); Lymphocytes % (Auto) 18 % (10-50); Mean Corpuscular HGB Conc 32.6 g/dl (31.0-37.0); Mean Corpuscular Hemoglobin 26.7 pg (25.0-35.0); Mean Corpuscular Volume 82 fL (80-100); Monocytes # (Auto) 0.4 Thou/mm3 (0.0-0.8); Monocytes % (Auto) 8 % (0-12); Neutrophils # (Auto) 3.2 Thou/mm3 (1.8-7.7); Neutrophils % (Auto) 66 % (37-80); Nucleated Red Blood Cell # 0.00 Thou/mm3 (0.00-0.00); Nucleated Red Blood Cell % 0 /100 WBC (0); Platelet Count 234 Thou/mm3 (140-440); RDW Standard Deviation 49.1 fL (36.4-46.3); Red Blood Count 4.61 Miln/mm3 (4.00-5.20); White Blood Count 4.9 Thou/mm3 (3.6-11.0)
[2025-03-20 13:06] LABS: Free T3 2.8 pg/mL (2.3-4.2)
[2025-03-20 13:07] LABS: Alanine Aminotransferase 20 U/L (10-49); Albumin, Serum 4.0 gm/dL (3.4-4.8); Albumin/Globulin Ratio 2.2 (1.2-2.2); Alkaline Phosphatase 55 U/L (46-116); Anion Gap 10 (7-16); Aspartate Amino Transferase 66 U/L (0-34); BUN/Creatinine Ratio 13 Ratio (12-20); Bilirubin,Total 0.6 mg/dL (0.3-1.2); Blood Urea Nitrogen 10 mg/dL (9-23); Calcium 8.9 mg/dL (8.3-10.6); Calcium (Corrected) 8.9 mg/dL (8.5-10.1); Carbon Dioxide 27.0 mMol/L (20.0-31.0); Chloride 105 mMol/L (98-107); Creatinine (Component) 0.8 mg/dL (0.6-1.3); Globulin 1.8 gm/dL (2.3-3.5); Glucose 117 mg/dL (74-106); Osmolality,Calculated 283 (275-295); Potassium 3.3 mMol/L (3.4-5.1); Sodium 142 mMol/L (136-145); Thyroid Stimulating Hormone 2.07 uIU/mL (0.55-4.78); Total Protein 5.8 gm/dL (5.7-8.2); eGFR > 60 See Note
== END 2025-03-26 23:59 | disposition home or self-care (01) ==
LOC: SCTC 10:30
PROVIDERS: PCP Family Medicine; Referring Provider Family Medicine; Visit Provider Internal Medicine Hematology & Oncology
DX: Z51.12 Encounter for antineoplastic immunotherapy (principal); C50.412 Malignant neoplasm of upper-outer quadrant of left female breast; C64.2 Malignant neoplasm of left kidney, except renal pelvis; Z17.0 Estrogen receptor positive status [ER+]; Z17.21 Progesterone receptor positive status; Z17.32 Human epidermal growth factor receptor 2 negative status; Z90.12 Acquired absence of left breast and nipple; Z79.811 Long term (current) use of aromatase inhibitors
CPT/HCPCS: 36591; 80053; 84443; 84481; 85025; 96360; 96413; A4216; J1642; J3490; J7030; J7040; J9271

== ENCOUNTER 2025-04-18 11:29 | Outpatient (RCR) | payer MEDICARE, MEDICAID, SELFPAY ==
[2025-04-10 15:36] LABS: Basophils # (Auto) 0.1 Thou/mm3 (0.0-0.2); Basophils % (Auto) 1 % (0-2.5); Eosinophils # (Auto) 0.1 Thou/mm3 (0.0-0.5); Eosinophils % (Auto) 2 % (0-10); Hematocrit 38.7 % (36.0-46.0); Hemoglobin 12.7 g/dL (12.0-16.0); Immature Granulocytes Auto 0.02 Thou/mm3 (0.00-0.00); Lymphocytes # (Auto) 0.9 Thou/mm3 (1.0-4.8); Lymphocytes % (Auto) 13 % (10-50); Mean Corpuscular HGB Conc 32.8 g/dl (31.0-37.0); Mean Corpuscular Hemoglobin 27.1 pg (25.0-35.0); Mean Corpuscular Volume 83 fL (80-100); Monocytes # (Auto) 0.5 Thou/mm3 (0.0-0.8); Monocytes % (Auto) 8 % (0-12); Neutrophils # (Auto) 5.1 Thou/mm3 (1.8-7.7); Neutrophils % (Auto) 76 % (37-80); Nucleated Red Blood Cell # 0.00 Thou/mm3 (0.00-0.00); Nucleated Red Blood Cell % 0 /100 WBC (0); Platelet Count 231 Thou/mm3 (140-440); RDW Standard Deviation 44.7 fL (36.4-46.3); Red Blood Count 4.69 Miln/mm3 (4.00-5.20); White Blood Count 6.7 Thou/mm3 (3.6-11.0)
[2025-04-10 15:56] LABS: Alanine Aminotransferase 21 U/L (10-49); Albumin, Serum 4.2 gm/dL (3.4-4.8); Albumin/Globulin Ratio 2.1 (1.2-2.2); Alkaline Phosphatase 59 U/L (46-116); Anion Gap 7 (7-16); Aspartate Amino Transferase 61 U/L (0-34); BUN/Creatinine Ratio 11 Ratio (12-20); Bilirubin,Total 0.7 mg/dL (0.3-1.2); Blood Urea Nitrogen 9 mg/dL (9-23); Calcium 9.3 mg/dL (8.3-10.6); Calcium (Corrected) 9.3 mg/dL (8.5-10.1); Carbon Dioxide 28.7 mMol/L (20.0-31.0); Chloride 99 mMol/L (98-107); Creatinine (Component) 0.8 mg/dL (0.6-1.3); Globulin 2.0 gm/dL (2.3-3.5); Glucose 135 mg/dL (74-106); Osmolality,Calculated 270 (275-295); Potassium 3.4 mMol/L (3.4-5.1); Sodium 135 mMol/L (136-145); Thyroid Stimulating Hormone 1.33 uIU/mL (0.55-4.78); Total Protein 6.2 gm/dL (5.7-8.2); eGFR > 60 See Note
== END 2025-04-26 23:59 | disposition home or self-care (01) ==
LOC: SCTC 11:29
PROVIDERS: PCP Family Medicine; Referring Provider Family Medicine; Visit Provider Internal Medicine Hematology & Oncology
DX: Z51.12 Encounter for antineoplastic immunotherapy (principal); C64.2 Malignant neoplasm of left kidney, except renal pelvis; C50.412 Malignant neoplasm of upper-outer quadrant of left female breast; Z17.0 Estrogen receptor positive status [ER+]; Z17.21 Progesterone receptor positive status; Z17.32 Human epidermal growth factor receptor 2 negative status; Z90.12 Acquired absence of left breast and nipple
CPT/HCPCS: 36591; 80053; 84443; 85025; 96360; 96413; A4216; J1642; J3490; J7030; J9271